=== PATIENT | female | born 1995 | race Two or more races ===

== ENCOUNTER 2020-04-10 17:57 | Emergency (ER) | payer OTHER, SELFPAY ==
[2020-04-10 19:27] VITALS: BP 112/61; PULSE 73; RESP 18; TEMP 37.1; O2SAT 100; BMI 30.9
--- NOTE | 2020-04-10 20:21 | US_ITS ---
EXAMINATION: ULTRASOUND PELVIC, COMPLETE CLINICAL INFORMATION: Pelvic pain COMPARISON: Pelvis 05/07/2018. CT scan abdomen pelvis 09/09/2019 TECHNIQUE: Transvaginal: Used to better visualize pelvic structures Transabdominal: Not adequate for visualization. Spectral Doppler and color Doppler exam was utilized. LMP: 03/25/2020 FINDINGS: UTERUS: There is an IUD in the central endometrial cavity. No fluid in the endometrial cavity. The uterus measures 7 x 3.6 x 4.6 cm. ADNEXA: Ovarian vascularity:Doppler demonstrates both arterial and venous vascular flow in the right and left ovary. No evidence of ovarian torsion. Right Ovary: 4.9 x 4.4 x 2.6 cm. Volume 29 mL. Corpus luteum cyst in the right ovary measuring 1.9 cm. Left Ovary: 2.6 x 1.6 x 1.7 cm. Volume 4 mL Cul-de-sac: No Fluid US/US transvaginal IMPRESSION: 1. No acute abnormality. 2. IUD in the endometrial cavity
--- NOTE | 2020-04-10 20:21 | US_ITS ---
EXAMINATION: ULTRASOUND PELVIC, COMPLETE CLINICAL INFORMATION: Pelvic pain COMPARISON: Pelvis 05/07/2018. CT scan abdomen pelvis 09/09/2019 TECHNIQUE: Transvaginal: Used to better visualize pelvic structures Transabdominal: Not adequate for visualization. Spectral Doppler and color Doppler exam was utilized. LMP: 03/25/2020 FINDINGS: UTERUS: There is an IUD in the central endometrial cavity. No fluid in the endometrial cavity. The uterus measures 7 x 3.6 x 4.6 cm. ADNEXA: Ovarian vascularity:Doppler demonstrates both arterial and venous vascular flow in the right and left ovary. No evidence of ovarian torsion. Right Ovary: 4.9 x 4.4 x 2.6 cm. Volume 29 mL. Corpus luteum cyst in the right ovary measuring 1.9 cm. Left Ovary: 2.6 x 1.6 x 1.7 cm. Volume 4 mL Cul-de-sac: No Fluid US/US pelvic ovarian doppler IMPRESSION: 1. No acute abnormality. 2. IUD in the endometrial cavity
--- NOTE | 2020-04-10 20:40 | ED.GENADULT ---
HPI - General Adult General Chief complaint: General Medical Stated complaint: lower abdominal pain Time Seen by Provider: 04/10/20 20:21 Source: patient Mode of arrival: ambulatory Limitations: no limitations History of Present Illness HPI narrative: 25-year-old female presented with lower pelvic pain, patient with chronic lower abdominal pain but the pain was worsening since 14:00 today about 6 hours ago. No vaginal bleed, patient has history of IUD which she is concerned about. Described pain as sharp, constant, moderate about 7/10, with no radiation, localized in the lower suprapubic area, nothing relieves the pain, nothing worsening the pain, no other associated symptoms. Related Data Allergies Allergy/AdvReac Type Severity Reaction Status Date / Time No Known Allergies Allergy Verified 04/10/20 20:21 [No Known Allergies*] Review of Systems Review of Systems: All other systems are reviewed and are negative Constitutional: Reports as per HPI and Reports no additional constitutional complaints Eyes: Reports as per HPI and Reports no additional eye complaints Reports system reviewed and no additional complaints, except as documented Cardiovascular: Reports as per HPI and Reports no additional cardiovascular complaints Respiratory: Reports as per HPI and Reports no additional respiratory complaints Gastrointestinal: Reports as per HPI and Reports no additional gastrointestinal complaints Genitourinary: Reports no additional female genitourinary complaints Musculoskeletal: Reports no additional musculoskeletal complaints Skin/Breast: Reports system reviewed and no additional complaints, except as docu Psychiatric: Reports no additional psychiatric complaints Endocrine: Reports no additional endocrine complaints Hematologic/Lymphatic: Reports no additional hematologic/lymphatic complaints Allergic/Immunologic: Reports no additional allergic/immunologic complaints Reports system reviewed and no additional complaints, except as documented and Reports Abnormal speech present [facility] Past Medical History Medical History Asthma IUD (intrauterine device) in place Surgical History History of sleeve gastrectomy Social History Social History Smoking Status: Never smoker Use of substances other than those prescribed or required for medical reasons: No Advance Directives: No Advance Directives Information Provided: No Physical Exam Vital Signs: Vital Signs: Last Vital Signs Temp 98.5 F 04/10/20 21:46 Pulse 65 04/10/20 21:46 Resp 18 04/10/20 21:46 BP 111/48 L 04/10/20 21:46 Pulse Ox 99 04/10/20 21:46 Body Mass Index 30.9 Vital signs have been reviewed as normal and appeared to be correct. Blood pressure normal. Heart rate normal. Respiration rate normal. Temperature normal. Oxygen saturation normal. Appearance: Alert. Oriented X3. No acute distress. Head: Normal external exam. Normocephalic. Atraumatic. No Weeks signs noted. No raccoon eyes noted Eyes: PERRLA. EOMI. Conjunctiva and sclera normal. Eyelids normal. ENT: EAC normal. TM's Normal. Pharynx normal. Uvula midline. Moist mucous membranes. No trismus noted. No drooling noted. No muffled voice noted. Neck: Normal inspection. Neck supple. FROM. No adenopathy. Thyroid Normal. No meningeal signs. No neck mass noted. CVS: Normal heart rate and rhythm. Heart sound normal. No murmurs noted. Pulses normal throughout. Respiratory: No respiratory distress. Painless inspiration. Breath sounds normal. No wheezes/rales/rhonchi noted. Chest nontender. No accessory muscle usage noted or decreased air movement noted. Abdomen: Soft and nontender. Bowel sounds normal in all 4 quadrants. No distention noted. No organomegaly noted. No visible injury noted. Back: No CVA tenderness. Full range of motion noted. Skin: Skin warm and dry. Normal skin color. Normal skin turgor. No rashes/lesions/lacerations noted. Extremities: No lower extremity edema. Extremities exhibit normal range of motion. Extremities nontender. Neuro: Oriented X 3. No motor deficit. No sensory deficit. Reflexes normal. Course Course Course Narrative: Lower abdominal pain since 02:00 o'clock, feels like contractions, history of IUD. Rule out , pelvic ultrasound rule out ovarian torsion, will consider x-ray if is negative to locate the IUD. Medical Decision Making MDM Narrative Medical decision making narrative: Assessment and plan. Patient 25-year-old healthy female presented with lower pelvic pain started today, patient in the emergency department had blood workup and ultrasound of the pelvis, ultrasound ruled out any acute pelvic pathology, IUD is in the endometrial cavity, abdominal and pelvic exam is not consistent with perforated viscus (no rebound tenderness, no guarding) ultrasound also ruled out ovarian torsion, patient in the room appears very comfortable on her cellphone. Patient was instructed to follow-up with her OBGYN if symptoms still persist. Lab Data Lab results reviewed: Yes I reviewed the patient's lab results. Result diagrams: 04/10/20 20:38 04/10/20 20:38 Labs: Lab Results 04/10/20 04/10/20 04/10/20 Range/Units 20:38 20:38 20:38 WBC 9.8 (4.8-10.8) X10*3/uL RBC 3.73 L (4.20-5.50) X10*6/uL Hgb 11.3 L (12.0-16.0) g/dl Hct 33.8 L (37-47) % MCV 90.6 (80-98) fL MCH 30.3 (27.0-33.0) pg MCHC 33.4 (31.0-35.0) g/dl RDW 12.1 (11.0-16.0) % Plt Count 277 (160-400) X10*3/uL MPV 10.4 (9.4-12.3) fL Immature Gran % (Auto) 0.2 (0.0-0.4) % Neut % (Auto) 62.3 (45-73) % Lymph % (Auto) 28.6 (20-40) % Green % (Auto) 5.8 (2-11) % Eos % (Auto) 2.8 (0-4) % Baso % (Auto) 0.3 (0-2) % Lymph # (Auto) 2.8 (1.2-4.9) X10*3/uL Green # (Auto) 0.6 (0.1-1.2) X10*3/uL Eos # (Auto) 0.3 (0.0-0.4) X10*3/uL Baso # (Auto) 0.0 (0.0-0.2) X10*3/uL Abs Immat Gran (auto) 0.02 (0.00-0.03) X10*3/uL Absolute Neuts (auto) 6.1 (2.0-8.3) X10*3/uL Absolute Nucleated RBC 0.000 (0.0-0.012) X10*3/uL Nucleated RBC % (auto) 0.0 (0.0-0.2) /100WBC Sodium 138 (135-145) mmol/L Potassium 4.1 (3.3-5.1) mmol/l Chloride 105 (96-108) mmol/L Carbon Dioxide 24 (22-29) mmol/L Anion Gap 13 (12-20) BUN 14 (9-16) mg/dL Creatinine 0.72 (0.5-1.4) mg/dL Estim Creat Clear Calc 114.5 Estimated GFR > 60 Random Glucose 78 (60-115) mg/dL Calcium 8.9 (8.4-10.2) mg/dL Total Bilirubin 0.5 (0.0-1.0) mg/dL Direct Bilirubin 0.2 (0.0-0.5) mg/dL AST 18 (5-31) U/L ALT 14 (0-31) U/L Alkaline Phosphatase 82 (39-117) U/L Total Protein 6.9 (6.5-8.0) g/dL Albumin 4.1 (3.5-5.0) g/dL Lipase 25 (8-78) U/L Urine Color Urine Appearance Urine pH (5.0-8.0) Ur Specific [place] (1.005-1.025) Urine Protein (NEG-TRACE) MG/DL Urine Glucose (UA) (NEG) MG/DL Urine Ketones (NEG) MG/DL Urine Blood (NEG) Urine Nitrite (NEG) Ur Leukocyte Esterase (NEG) Urine Test NEGATIVE (NEGATIVE) 04/10/20 Range/Units 20:38 WBC (4.8-10.8) X10*3/uL RBC (4.20-5.50) X10*6/uL Hgb (12.0-16.0) g/dl Hct (37-47) % MCV (80-98) fL MCH (27.0-33.0) pg MCHC (31.0-35.0) g/dl RDW (11.0-16.0) % Plt Count (160-400) X10*3/uL MPV (9.4-12.3) fL Immature Gran % (Auto) (0.0-0.4) % Neut % (Auto) (45-73) % Lymph % (Auto) (20-40) % Green % (Auto) (2-11) % Eos % (Auto) (0-4) % Baso % (Auto) (0-2) % Lymph # (Auto) (1.2-4.9) X10*3/uL Green # (Auto) (0.1-1.2) X10*3/uL Eos # (Auto) (0.0-0.4) X10*3/uL Baso # (Auto) (0.0-0.2) X10*3/uL Abs Immat Gran (auto) (0.00-0.03) X10*3/uL Absolute Neuts (auto) (2.0-8.3) X10*3/uL Absolute Nucleated RBC (0.0-0.012) X10*3/uL Nucleated RBC % (auto) (0.0-0.2) /100WBC Sodium (135-145) mmol/L Potassium (3.3-5.1) mmol/l Chloride (96-108) mmol/L Carbon Dioxide (22-29) mmol/L Anion Gap (12-20) BUN (9-16) mg/dL Creatinine (0.5-1.4) mg/dL Estim Creat Clear Calc Estimated GFR Random Glucose (60-115) mg/dL Calcium (8.4-10.2) mg/dL Total Bilirubin (0.0-1.0) mg/dL Direct Bilirubin (0.0-0.5) mg/dL AST (5-31) U/L ALT (0-31) U/L Alkaline Phosphatase (39-117) U/L Total Protein (6.5-8.0) g/dL Albumin (3.5-5.0) g/dL Lipase (8-78) U/L Urine Color YELLOW Urine Appearance CLEAR Urine pH 7.5 (5.0-8.0) Ur Specific [place] 1.020 (1.005-1.025) Urine Protein NEG (NEG-TRACE) MG/DL Urine Glucose (UA) NEG (NEG) MG/DL Urine Ketones NEG (NEG) MG/DL Urine Blood NEG (NEG) Urine Nitrite NEG (NEG) Ur Leukocyte Esterase NEG (NEG) Urine Test (NEGATIVE) Imaging Data Pelvic ultrasound: Radiologist's impression: 1. No acute abnormality. 2. IUD in the endometrial cavity Discharge Plan Discharge Clinical Impression: Pelvic pain Patient Disposition: Home, Self-Care Instructions: Pelvic Pain in Women (ED) Referrals: Lucy Larkin MD [Primary Care Provider] - 2 days
[2020-04-10 20:53] LABS: MANUAL DIFF FLAG NO
--- NOTE | 2020-04-10 20:57 | US_ITS ---
EXAMINATION: ULTRASOUND PELVIC, COMPLETE CLINICAL INFORMATION: Pelvic pain COMPARISON: Pelvis 05/07/2018. CT scan abdomen pelvis 09/09/2019 TECHNIQUE: Transvaginal: Used to better visualize pelvic structures Transabdominal: Not adequate for visualization. Spectral Doppler and color Doppler exam was utilized. LMP: 03/25/2020 FINDINGS: UTERUS: There is an IUD in the central endometrial cavity. No fluid in the endometrial cavity. The uterus measures 7 x 3.6 x 4.6 cm. ADNEXA: Ovarian vascularity:Doppler demonstrates both arterial and venous vascular flow in the right and left ovary. No evidence of ovarian torsion. Right Ovary: 4.9 x 4.4 x 2.6 cm. Volume 29 mL. Corpus luteum cyst in the right ovary measuring 1.9 cm. Left Ovary: 2.6 x 1.6 x 1.7 cm. Volume 4 mL Cul-de-sac: No Fluid US/US pelvic complete IMPRESSION: 1. No acute abnormality. 2. IUD in the endometrial cavity
[2020-04-10 20:59] LABS: Basophils Percent Auto 0.3 % (0-2); Eosinophils Absolute Auto 0.3 X10*3/uL (0.0-0.4); Eosinophils Percent Auto 2.8 % (0-4); Hematocrit 33.8 % (37-47); Hemoglobin 11.3 g/dl (12.0-16.0); Imm Gran Abs Auto 0.02 X10*3/uL (0.00-0.03); Imm Gran Pct Auto 0.2 % (0.0-0.4); Lymphocytes Absolute Auto 2.8 X10*3/uL (1.2-4.9); Lymphocytes Percent Auto 28.6 % (20-40); Mean Corpuscular HGB Conc 33.4 g/dl (31.0-35.0); Mean Corpuscular Hemoglobin 30.3 pg (27.0-33.0); Mean Corpuscular Volume 90.6 fL (80-98); Mean Platelet Volume 10.4 fL (9.4-12.3); Monocytes Absolute Auto 0.6 X10*3/uL (0.1-1.2); Monocytes Percent Auto 5.8 % (2-11); Neutrophils Absolute Auto 6.1 X10*3/uL (2.0-8.3); Neutrophils Percent Auto 62.3 % (45-73); Platelet Count 277 X10*3/uL (160-400); Red Blood Count 3.73 X10*6/uL (4.20-5.50); Red Cell Distribution Width 12.1 % (11.0-16.0); White Blood Count 9.8 X10*3/uL (4.8-10.8)
[2020-04-10 21:06] LABS: Glucose Urine UA NEG (NEG); Leukocyte Esterase Urine NEG (NEG); Nitrite Urine NEG (NEG); PH 7.5 (5.0-8.0); Urine Blood NEG (NEG); Urine Ketones NEG (NEG); Urine Protein NEG (NEG-TRACE)
[2020-04-10 21:08] LABS: Appearance Urine CLEAR; Color Urine YELLOW
[2020-04-10 21:11] LABS: UPreg QC Valid YES; Urine Pregnancy NEGATIVE (NEGATIVE)
[2020-04-10 21:23] LABS: Alanine Aminotransferase 14 U/L (0-31); Albumin Level 4.1 g/dL (3.5-5.0); Alkaline Phosphatase 82 U/L (39-117); Anion Gap 13 (12-20); Aspartate Amino Transferase 18 U/L (5-31); Bilirubin Direct 0.2 mg/dL (0.0-0.5); Bilirubin Total 0.5 mg/dL (0.0-1.0); Blood Urea Nitrogen 14 mg/dL (9-16); Calcium 8.9 mg/dL (8.4-10.2); Carbon Dioxide 24 mmol/L (22-29); Chloride 105 mmol/L (96-108); Creatinine Clr Calc Pharmacy 114.5; Estimated Glomerular Filt Rate > 60; Glucose Random 78 mg/dL (60-115); Lipase 25 U/L (8-78); Potassium 4.1 mmol/l (3.3-5.1); Sodium 138 mmol/L (135-145); Total Protein 6.9 g/dL (6.5-8.0)
[2020-04-10 21:46] VITALS: BP 111/48; PULSE 65; RESP 18; TEMP 36.9; O2SAT 99
== END 2020-04-10 22:39 | disposition home or self-care (01) ==
PROVIDERS: Emergency Provider Emergency Medicine; PCP Family Medicine
DX: R10.2 Pelvic and perineal pain (principal); Z98.84 Bariatric surgery status
CPT/HCPCS: 36415; 76830; 76856; 80048; 80076; 81003; 81025; 83690; 85025; 93975; 99284

== ENCOUNTER 2020-07-30 08:23 | Outpatient (REF) | payer OTHER, SELFPAY ==
[2020-07-31 09:24] LABS: BV Int Neg Control Negative (Negative); BV Int Pos Control Positive (Positive)
[2020-07-31 11:41] LABS: C. trachomatis RNA TMA NOT DETECTED (NOT DETECTED); N. gonorrhoeae RNA TMA NOT DETECTED (NOT DETECTED)
== END 2020-07-30 08:24 | disposition home or self-care (01) ==
LOC: HO.LAB 08:23
PROVIDERS: PCP Family Medicine; Visit Provider Obstetrics & Gynecology
DX: Z01.419 Encounter for gynecological examination (general) (routine) without abnormal findings (principal); B96.89 Other specified bacterial agents as the cause of diseases classified elsewhere; N76.0 Acute vaginitis; N94.9 Unspecified condition associated with female genital organs and menstrual cycle
CPT/HCPCS: 36415; 87480; 87491; 87510; 87591; 87660; 88142

== ENCOUNTER → 2020-08-10 11:36 | Outpatient (BNVA) | payer OTHER, SELFPAY | PROVIDERS: Visit Provider Obstetrics & Gynecology | CPT/HCPCS: Q3014 ==

== ENCOUNTER 2020-09-04 12:45 | Outpatient (REF) | payer OTHER, SELFPAY ==
--- NOTE | ~2020-09-04 | US_ITS ---
EXAMINATION:US transvaginal, US pelvic complete CLINICAL INFORMATION: Reason for Exam N94.9 - Unspecified condition associated with female genital organs and menstrual cycle COMPARISON: No priors available. LMP: Today FINDINGS: UTERUS: The uterus is anteverted. Size: 8.1 x 3.7 x 5.3 cm. Uterine mass: There is no uterine mass. Cervix: Grossly unremarkable. Endometrium: No ultrasound evidence of endometrial lesion. endometrial thickness measures 0.[address] properly positioned. ADNEXA: Normal Right ovary: Normal in size. Left ovary: Normal in size. Cystic structure likely dominant follicle 2.1 x 1.4 x 2 cm. Doppler exam: Normal Doppler flow identified in both ovaries. FREE FLUID: Trace amount of free fluid. OTHER FINDINGS: None US/US transvaginal IMPRESSION: Normal pelvic ultrasound. IUD in place properly positioned.
--- NOTE | ~2020-09-04 | US_ITS ---
EXAMINATION:US transvaginal, US pelvic complete CLINICAL INFORMATION: Reason for Exam N94.9 - Unspecified condition associated with female genital organs and menstrual cycle COMPARISON: No priors available. LMP: Today FINDINGS: UTERUS: The uterus is anteverted. Size: 8.1 x 3.7 x 5.3 cm. Uterine mass: There is no uterine mass. Cervix: Grossly unremarkable. Endometrium: No ultrasound evidence of endometrial lesion. endometrial thickness measures 0.[address] properly positioned. ADNEXA: Normal Right ovary: Normal in size. Left ovary: Normal in size. Cystic structure likely dominant follicle 2.1 x 1.4 x 2 cm. Doppler exam: Normal Doppler flow identified in both ovaries. FREE FLUID: Trace amount of free fluid. OTHER FINDINGS: None US/US pelvic complete IMPRESSION: Normal pelvic ultrasound. IUD in place properly positioned.
== END 2020-09-04 12:46 | disposition home or self-care (01) ==
LOC: HO.US 12:45
PROVIDERS: Visit Provider Obstetrics & Gynecology
DX: N94.9 Unspecified condition associated with female genital organs and menstrual cycle (principal)
CPT/HCPCS: 76830; 76856

== ENCOUNTER → 2020-09-06 13:17 | Outpatient (BNVA) | payer OTHER, SELFPAY | PROVIDERS: Visit Provider Obstetrics & Gynecology | DX: N94.9 Unspecified condition associated with female genital organs and menstrual cycle (principal) | CPT/HCPCS: Q3014 ==

== ENCOUNTER 2020-09-18 15:48 | Outpatient (REF) | payer OTHER, SELFPAY ==
--- NOTE | ~2020-09-18 | US_ITS ---
EXAMINATION: US THYROID CLINICAL INFORMATION: Thyroid nodule. COMPARISON: Ultrasound soft tissue head/neck thyroid dated 12/20/2018. TECHNIQUE: Linear transducer grayscale and color Doppler examination with attention to the region of the thyroid. FINDINGS: SIZE: Measurements of the thyroid lobes and nodules are given in sagittal, anteroposterior and transverse dimensions respectively. Right Thyroid Lobe: 5.3 x 1.6 x 1.6 cm, volume 7.0 mL. Previously 4.9 x 1.4 x 1.5 cm, volume 5.5 mL. Parenchyma: The gland echotexture is homogeneous. Thyroid vascularity is normal. Left Thyroid Lobe: 4.4 x 1.2 x 1.6 cm, volume 4.3 mL. Previously 4.2 x 1.1 x 1.4 cm, volume 3.3 mL. Parenchyma: The gland echotexture is homogeneous. Thyroid vascularity is normal. Isthmus: 0.3 cm in maximum AP dimension. Previously 0.3 cm. Estimated total number of nodules greater than or equal to 1 cm: 0. Etiology Teacher nodules are described as follows: 1. Location: Left mid. Size: 0.6 x 0.3 x 0.5 cm, volume 0.04 mL. Previously: 0.5 x 0.3 x 0.4 cm, volume 0.03 mL. Nodule characteristics: Composition: Solid (2). Echogenicity: Hyperechoic (1). Shape: Not taller than wide (0). Margins: Ill-defined (0). Echogenic Foci: None (0). ACR TI-RADS total points: 3 ACR TI-RADS category: 3 Significant change in size (>/= 20% in 2 dimensions and minimal increase of 2 mm or 50% or greater increase in volume): No Change in features: No Change in ACR TI-RADS risk category: n/a NODES: No lymphadenopathy is seen in the tissue surrounding the thyroid gland. US/US thyroid IMPRESSION: Homogeneous thyroid parenchyma with normal vascularity. No thyromegaly. Redemonstration of a mid left thyroid nodule measuring 0.6 cm and not significantly changed in size when compared to the prior examination. This demonstrates ultrasound characteristics consistent with TI-RADS Category 3. ACR TI-RADS RECOMMENDATION REFERENCE: Ultrasound-guided fine-needle aspiration, followup ultrasound, no further follow up. * TR3 (3 points): FNA if more than or equal to 2.5 cm in maximum dimension, followup ultrasound in 1, 3 and 5 years if 1.5 to 2.4 cm in maximum dimension. * TR3, TR4 or TR5 nodules that are below the size threshold for follow up receive no follow up.
== END 2020-09-18 15:49 | disposition home or self-care (01) ==
LOC: HO.US 15:48
PROVIDERS: PCP Family Medicine; Visit Provider Internal Medicine Endocrinology, Diabetes & Metabolism
DX: E04.1 Nontoxic single thyroid nodule (principal)
CPT/HCPCS: 76536

== ENCOUNTER 2021-04-04 12:30 | Emergency (ER) | payer OTHER, SELFPAY ==
[2021-04-04 12:58] VITALS: BP 141/85; PULSE 104; RESP 16; TEMP 36.8; O2SAT 100; BMI 30.5
--- NOTE | 2021-04-04 14:10 | ED_ITS ---
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 Related Data Home Medications Medication Instructions Recorded Confirmed calcium citrate 315 mg 2 tab PO BID 07/30/20 09/06/20 calcium-vitamin D3 6.25 mcg (250 unit) tablet copper 380 square mm intrauterine INTRAUTERINE 07/30/20 09/06/20 device (ParaGard T 380A) Previous Rx's Medication Instructions Recorded metronidazole 500 mg tablet 500 mg PO BID 7 Days #14 tab 07/30/20 fluconazole 150 mg tablet 150 mg PO DAILY #1 tab 08/10/20 Allergies Allergy/AdvReac Type Severity Reaction Status Date / Time No Known Allergies Allergy Verified 09/06/20 13:18 [No Known Allergies*] Review of Systems Review of Systems: All other systems are reviewed and are negative Constitutional: Reports as per HPI and Reports no additional constitutional complaints Eyes: Reports as per HPI and Reports no additional eye complaints Reports system reviewed and no additional complaints, except as documented Cardiovascular: Reports as per HPI and Reports no additional cardiovascular co mplaints Respiratory: Reports as per HPI and Reports no additional respiratory complaints Gastrointestinal: Reports as per HPI and Reports no additional gastrointestinal complaints Genitourinary: Reports no additional female genitourinary complaints Musculoskeletal: Reports no additional musculoskeletal complaints Skin/Breast: Reports system reviewed and no additional complaints, except as docu Psychiatric: Reports no additional psychiatric complaints Endocrine: Reports no additional endocrine complaints Hematologic/Lymphatic: Reports no additional hematologic/lymphatic complaints Allergic/Immunologic: Reports no additional allergic/immunologic complaints Reports system reviewed and no additional complaints, except as documented and Reports Abnormal speech present [facility] Past Medical History Medical History Asthma IUD (intrauterine device) in place Surgical History History of sleeve gastrectomy Social History Social History Alcohol intake: never Advance Directives: No Advance Directives Information Provided: No Patient : No Gender identity: Female Physical Exam Vital Signs: Vital Signs: Last Vital Signs Temp 98.2 F 04/04/21 12:58 Pulse 104 H 04/04/21 12:58 Resp 16 04/04/21 12:58 BP 141/85 H 04/04/21 12:58 Pulse Ox 100 04/04/21 12:58 Body Mass Index 30.5 Vital signs have been reviewed as appeared to be correct. Blood pressure normal. Heart rate normal. Respiration rate normal. Temperature normal. Oxygen saturation normal. Appearance: Alert. Oriented X3. No acute distress. Head: Normal external exam. Normocephalic. Atraumatic. No Weeks signs noted. No raccoon eyes noted Eyes: PERRLA. EOMI. Conjunctiva and sclera normal. Eyelids normal. ENT: TM's Normal. Pharynx normal. Uvula midline. Moist mucous membranes. No trismus noted. No drooling noted. No muffled voice noted. Neck: Normal inspection. Neck supple. FROM. No adenopathy. Thyroid Normal. No meningeal signs. No neck mass noted. CVS: Normal heart rate and rhythm. Heart sound normal. No murmurs noted. Pulses normal throughout. Respiratory: No respiratory distress. Painless inspiration. Breath sounds normal. No wheezes/rales/rhonchi noted. Chest nontender. No accessory muscle usage noted or decreased air movement noted. Abdomen: Soft and nontender. Bowel sounds normal in all 4 quadrants. No distention noted. No organomegaly noted. No visible injury noted. Incision is dry and clean and intact, G drainage is intact with yellow discharge in it. Back: No CVA tenderness. Full range of motion noted. Skin: Skin warm and dry. Normal skin color. Normal skin turgor. No rashes/lesions/lacerations noted. Extremities: No lower extremity edema. Extremities exhibit normal range of motion. Extremities nontender. Neuro: Oriented X 3. Cranial nerve exam: II-XII are grossly intact No motor deficit. No sensory deficit. Reflexes normal. Course Course Course Narrative: Assessment and plan. 26-year-old female status post surgery at [place], [place] here to remove J drainage, would send the patient to a surgeon for removal of the drainage. Discharge Plan Discharge Clinical Impression: Drainage from wound Patient Disposition: Home, Self-Care Instructions: Care For Your Stitches (ED) Prescriptions: No Action calcium citrate-vitamin D3 315 mg-6.25 mcg (250 unit) tablet 2 tab PO BID RF: 0 ParaGard T 380A 380 square mm intrauterine device intrauterine RF: 0 metronidazole 500 mg tablet 500 mg PO BID 7 Days Qty: 14 RF: 0 fluconazole 150 mg tablet 150 mg PO DAILY Qty: 1 RF: 1 Referrals: Teo Dunbar MD [Physician] - 2 days Lucy Larkin MD [Primary Care Provider] - 2 days
== END 2021-04-04 14:45 | disposition home or self-care (01) ==
PROVIDERS: Emergency Provider Emergency Medicine; PCP Family Medicine
DX: T81.89XA Other complications of procedures, not elsewhere classified, initial encounter (principal)
CPT/HCPCS: 99283; 99284

== ENCOUNTER 2021-04-12 14:54 | Outpatient (REF) | payer OTHER, SELFPAY ==
[2021-04-12 16:26] LABS: MANUAL DIFF FLAG NO
[2021-04-12 17:46] LABS: Basophils Percent Auto 0.4 % (0-2); Eosinophils Absolute Auto 0.2 X10*3/uL (0.0-0.4); Eosinophils Percent Auto 2.2 % (0-4); Hematocrit 33.5 % (37.0-47.0); Hemoglobin 11.2 g/dl (12.0-16.0); Imm Gran Abs Auto 0.03 X10*3/uL (0.00-0.03); Imm Gran Pct Auto 0.4 % (0.0-0.4); Lymphocytes Absolute Auto 1.5 X10*3/uL (1.2-4.9); Mean Corpuscular HGB Conc 33.4 g/dl (31.0-35.0); Mean Corpuscular Hemoglobin 30.4 pg (27.0-33.0); Mean Platelet Volume 10.8 fL (9.4-12.3); Monocytes Absolute Auto 0.4 X10*3/uL (0.1-1.2); Monocytes Percent Auto 5.6 % (2-11); Neutrophils Absolute Auto 4.9 x10*3/uL (2.0-8.3); Neutrophils Percent Auto 70.4 % (45-73); Platelet Count 321 X10*3/uL (160-400); Red Blood Count 3.68 X10*6/uL (4.20-5.50); Red Cell Distribution Width 11.8 % (11.0-16.0); White Blood Count 6.9 X10*3/uL (4.8-10.8)
[2021-04-15 12:01] LABS: Calcium (PTHI) 9.8 mg/dL (8.6-10.2); PTHI 33 pg/mL (14-64)
[2021-04-16 02:22] LABS: Zinc 61 mcg/dL (60-130)
== END 2021-04-12 14:55 | disposition home or self-care (01) ==
LOC: HO.LAB 14:54
PROVIDERS: PCP Family Medicine; Referring Provider Family Medicine; Visit Provider Physician Assistant Surgical
DX: E66.9 Obesity, unspecified (principal); Z68.30 Body mass index [BMI] 30.0-30.9, adult; Z71.3 Dietary counseling and surveillance
CPT/HCPCS: 36415; 83970; 84630; 85025; 99212

== ENCOUNTER → 2021-05-13 11:10 | Outpatient (BNVA) | payer OTHER, SELFPAY | PROVIDERS: PCP Family Medicine; Referring Provider Family Medicine; Visit Provider Dietitian, Registered | DX: E66.3 Overweight (principal); Z68.28 Body mass index [BMI] 28.0-28.9, adult | CPT/HCPCS: 97803 ==

== ENCOUNTER 2021-06-13 09:52 | Outpatient (REF) | payer OTHER, SELFPAY ==
[2021-06-13 11:38] LABS: Estimated Average Glucose 91 mg/dL; Hemoglobin A1c % 4.8 %
[2021-06-13 11:47] LABS: Anion Gap 12 (12-20); Blood Urea Nitrogen 9 mg/dL (9-16); C Reactive Protein 0.24 mg/dL (< or = 0.50); Calcium 10.1 mg/dL (8.4-10.2); Carbon Dioxide 27 mmol/L (22-29); Chloride 106 mmol/L (96-108); Cholesterol 167 mg/dL; Estimated Glomerular Filt Rate > 60; Glucose Random 79 mg/dL (60-115); HDL Cholesterol 52 mg/dL; Iron 62 mcg/dL (30-160); LDL Cholesterol Calculated 99 mg/dl; Percent Iron Saturation 21 % (15-50); Sodium 141 mmol/L (135-145); Total Iron Binding Capacity 297 mcg/dL (228-428); Triglycerides 82 mg/dL; Unsaturated Iron Binding 235 ug/dL
[2021-06-13 12:09] LABS: Ferritin 28 ng/mL (10-122); TSH reflex Free T4 1.27 uIU/mL (0.32-4.0); Vitamin D 25-OH Total 29.3 ng/mL (>30)
[2021-06-13 12:18] LABS: Folate 18.7 ng/mL (> or = 4.0); Vitamin B12 728 pg/mL (200-900)
[2021-06-19 14:27] LABS: Vitamin A 36 mcg/dL (38-98)
[2021-06-19 16:31] LABS: Vitamin B1 10 nmol/L (8-30)
== END 2021-06-13 09:53 | disposition home or self-care (01) ==
LOC: HO.LAB 09:52
PROVIDERS: PCP Family Medicine; Referring Provider Family Medicine; Visit Provider Physician Assistant Surgical
DX: E66.9 Obesity, unspecified (principal)
CPT/HCPCS: 36415; 80048; 80061; 82306; 82607; 82728; 82746; 83036; 83540; 84425; 84443; 84590; 86140; Q3014

== ENCOUNTER 2021-06-20 11:39 | Outpatient (REF) | payer OTHER, SELFPAY ==
[2021-06-20 15:57] LABS: CT PCR NOT DETECTED (Not Detect.); NG PCR NOT DETECTED (Not Detect.)
[2021-06-21 08:57] LABS: BV Int Neg Control Negative (Negative); BV Int Pos Control Positive (Positive)
== END 2021-06-20 11:40 | disposition home or self-care (01) ==
LOC: HO.LAB 11:39
PROVIDERS: PCP Family Medicine; Visit Provider Obstetrics & Gynecology
DX: B37.3 Candidiasis of vulva and vagina (principal)
CPT/HCPCS: 87480; 87491; 87510; 87591; 87660; 99212

== ENCOUNTER 2021-06-21 11:48 | Outpatient (REF) | payer OTHER, SELFPAY ==
[2021-06-21 13:21] LABS: Glucose Fasting 84 mg/dL (60-99)
[2021-06-21 13:42] LABS: HIV AB/AG Nonreactive (Nonreactive); HIV Num 1 0.06 S/CO (0.00-0.99)
[2021-06-22 03:01] LABS: CT PCR NOT DETECTED (Not Detect.); NG PCR NOT DETECTED (Not Detect.)
== END 2021-06-21 11:49 | disposition home or self-care (01) ==
LOC: HO.LAB 11:48
PROVIDERS: PCP Family Medicine; Visit Provider Obstetrics & Gynecology
DX: Z11.4 Encounter for screening for human immunodeficiency virus [HIV] (principal); B37.3 Candidiasis of vulva and vagina; B96.89 Other specified bacterial agents as the cause of diseases classified elsewhere; N76.0 Acute vaginitis
CPT/HCPCS: 82947; 87389; 87491; 87591

== ENCOUNTER 2021-08-06 12:55 | Outpatient (REF) | payer OTHER, SELFPAY ==
[2021-08-07 09:34] LABS: CT PCR NOT DETECTED (Not Detect.); NG PCR NOT DETECTED (Not Detect.)
== END 2021-08-06 12:56 | disposition home or self-care (01) ==
LOC: HO.LAB 12:55
PROVIDERS: PCP Family Medicine; Visit Provider Advanced Practice Midwife
DX: Z01.419 Encounter for gynecological examination (general) (routine) without abnormal findings (principal); Z11.3 Encounter for screening for infections with a predominantly sexual mode of transmission; Z11.8 Encounter for screening for other infectious and parasitic diseases; Z97.5 Presence of (intrauterine) contraceptive device; Z90.3 Acquired absence of stomach [part of]
CPT/HCPCS: 87491; 87591

== ENCOUNTER → 2021-11-11 08:53 | Outpatient (BNVA) | payer OTHER, SELFPAY | PROVIDERS: PCP Family Medicine; Visit Provider Dietitian, Registered | DX: E66.3 Overweight (principal); Z68.28 Body mass index [BMI] 28.0-28.9, adult | CPT/HCPCS: 97803 ==

== ENCOUNTER 2021-11-27 09:49 | Emergency (ER) | payer OTHER, SELFPAY ==
[2021-11-27 10:26] VITALS: BP 106/55; PULSE 66; RESP 20; TEMP 36.4; O2SAT 96; BMI 27.1
--- NOTE | 2021-11-27 11:08 | ED.WOUNDLAC ---
HPI - Wound/Laceration General Chief Complaint: Wound/Laceration Stated Complaint: R SIDE INFECTION Time Seen by Provider: 11/27/21 10:45 Source: patient Mode of arrival: ambulatory History of Present Illness HPI narrative: 26-year-old female with past medical history of asthma, migraines with aura, back surgery in [place] to remove excess skin 2 months ago, presenting to the ED complaining of painful lump to right side at end of suture placement x3 days. Reports skin feels itchy and tight, also with persistent sutures poking out of skin. Denies fever, chills, nausea, vomiting, abdominal pain, drainage from area Onset (ago): day(s) Location: abdomen Related Data Home Medications Medication Instructions Recorded Confirmed calcium citrate 315 mg 2 tab PO BID 07/30/20 06/13/21 calcium-vitamin D3 6.25 mcg (250 unit) tablet copper 380 square mm intrauterine intrauterine 07/30/20 06/13/21 device (ParaGard T 380A) ascorbic acid (vitamin C) 500 mg 500 mg PO DAILY 04/12/21 06/13/21 capsule,extended release (Vitamin C) iron 18 mg tablet 18 mg PO DAILY 04/12/21 06/13/21 folic acid 800 mcg tablet 0.8 mg PO DAILY 06/13/21 06/13/21 spironolactone 100 mg tablet 100 mg PO DAILY acne 06/13/21 06/13/21 tretinoin 0.05 % topical cream appl topical BEDTIME 06/13/21 06/13/21 zinc sulfate 50 mg zinc (220 mg) 50 mg PO TID 06/13/21 06/13/21 capsule Previous Rx's Medication Instructions Recorded fluconazole 150 mg tablet 150 mg PO DAILY #1 tab 08/10/20 vitamin A palmitate 10,000 unit 10,000 unit PO DAILY #30 caps 06/19/21 capsule fluconazole 150 mg tablet 150 mg PO ONCE 1 day #1 tab 06/20/21 terconazole 0.8 % vaginal cream 1 appful vaginal BEDTIME 3 days 06/20/21 #20 grams cephalexin 500 mg capsule 500 mg PO QID 7 days #28 caps 11/27/21 doxycycline hyclate 100 mg tablet 100 mg PO BID 7 days #14 tabs 11/27/21 Allergies Allergy/AdvReac Type Severity Reaction Status Date / Time No Known Allergies Allergy Verified 08/06/21 13:14 [No Known Allergies*] Review of Systems Review of Systems: Constitutional: No Fever, No Chills, No Fatigue, No Malaise ENT/Mouth: No Ear Pain, No Nasal Congestion, No sore throat, No Rhinorrhea, No Swallowing Difficulty Eyes: No Eye Pain, No Swelling, No Redness Cardiovascular: No Chest Pain, No SOB, No Palpitations Respiratory: No Cough, No Sputum, No Dyspnea Gastrointestinal: No Nausea, No Vomiting, No Diarrhea, No Constipation, No Abdominal pain Genitourinary: No Dysuria, No Urinary Frequency, No Hematuria, No Flank Pain Musculoskeletal: No joint pain, No Myalgias, No Joint Swelling Skin: + Skin Lesions, No rash Neuro: No Weakness, No Dizziness, No Headache Yes all other systems are reviewed and are negative [facility] Past Medical History Attestation statement: The following information was validated with the patient. Medical History Asthma IUD (intrauterine device) in place Migraine with aura Surgical History History of abdominoplasty History of sleeve gastrectomy Family History Family History Mother History of asthma History of anxiety Father Diabetes Heart problem Daughter Autism Son Autism Daughter No problems noted. 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 Gender identity: Female Physical Exam Vital Signs: Vital Signs: Last Vital Signs Temp 97.6 F 11/27/21 10:26 Pulse 66 11/27/21 10:26 Resp 20 11/27/21 10:26 BP 106/55 L 11/27/21 10:26 Pulse Ox 96 11/27/21 10:26 O2 Del Method 11/27/21 10:26 BMI result Body Mass Index 27.1 Const: General: cooperative, healthy appearing and no acute distress Orientation/consciousness: patient oriented x3 Limitations: no limitations HEENT: Head: Yes normal to inspection and Yes atraumatic Ears: hearing grossly normal bilaterally General nose exam: Normal external nose present Face and sinus: Yes normal facial exam Eyes: General: appearance normal, both eyes and all related structures EOM: EOMs intact bilaterally Neck: Neck: Yes normal visual inspection and Yes no meningeal signs Resp: Effort & Inspection: normal respiratory effort and no respiratory distress Cardio: Rate: regular rate Heart sounds: S1 normal heart sound present and S2 normal heart sound present GI: Inspection: Yes normal to inspection Palpation (GI): Soft to palpation, nontender, no guarding and not rigid : Other: Large healing surgical scar noted across back. + abscess with slight overlying erythema and ttp noted to right flank at end of suture line with suture poking out, no visible knots just string. No fluctuance Additional suture noted midline back and to left flank, no knots. General: Yes no CVA tenderness Back/Spine/Pelvis: Back: no CVA tenderness Skin: Rashes: no rashes Neuro: General: patient oriented x3, tone normal and no meningeal signs Gait exam (Neuro): Normal gait present Extrem: General: Yes normal to inspection MDM - Wound/Laceration MDM Narrative Medical decision making narrative: 26-year-old female with past medical history of asthma, migraines with aura, back surgery in [place] to remove excess skin 2 months ago, presenting to the ED complaining of painful lump to right side at end of suture placement x3 days. On exam vital signs stable, NAD, nontoxic appearing, abdomen soft/nontender, physical exam as above. No I & D indicated at this time Excess exposed suture strings cut Patient given 1st dose of doxycycline and Keflex in the ED, discussed worrisome signs and symptoms and strict return precautions Differential Diagnosis Differential diagnosis: Likely abscess Medical Records Attestation: I reviewed the patient's medical records. Lab Data Attestation: I reviewed the patient's lab results. Discharge Plan Discharge Clinical Impression: Abscess, Surgical complication Patient Disposition: Home, Self-Care Instructions: Wound Infection (ED), Abscess (ED) Additional Instructions: Start taking doxycycline and Keflex which are antibiotics. Avoid the sun while on doxycycline as makes you very sensitive/high risk of sunburn. Do not swim in water for the next 3 days. Keep a close eye in the area, if it is growing, turns red, has drainage or you have fever please return to the emergency department Prescriptions: New cephalexin 500 mg capsule 500 mg PO QID 7 Days Qty: 28 0RF doxycycline hyclate 100 mg tablet 100 mg PO BID 7 Days Qty: 14 0RF No Action vitamin A palmitate 10,000 unit capsule 10,000 unit PO DAILY Qty: 30 2RF calcium citrate-vitamin D3 315 mg-6.25 mcg (250 unit) tablet 2 tab PO BID ParaGard T 380A 380 square mm intrauterine device intrauterine fluconazole 150 mg tablet 150 mg PO DAILY Qty: 1 1RF iron 18 mg tablet 18 mg PO DAILY ascorbic acid (vitamin C) [Vitamin C] 500 mg capsule, extended release 500 mg PO DAILY zinc sulfate 50 mg zinc (220 mg) capsule 50 mg PO TID tretinoin 0.05 % cream topical BEDTIME spironolactone 100 mg tablet 100 mg PO DAILY folic acid 800 mcg tablet 0.8 mg PO DAILY fluconazole 150 mg tablet 150 mg PO ONCE 1 Days Qty: 1 1RF Rx Instructions: 150 mg tablet day 1 and Repeat another dose on day 4 terconazole 0.8 % cream 1 appful vaginal BEDTIME 3 Days Qty: 20 0RF Referrals: Lucy Larkin MD [Primary Care Provider] - 3 days Interventions: ED Discharge Assessment Last Done: 11/27/21 11:49 Discharge Date/Time: 11/27/21 11:50
[2021-11-27] MEDS: cephALEXin 500 MG CAPSULE PO (11:40)
== END 2021-11-27 11:50 | disposition home or self-care (01) ==
PROVIDERS: Emergency Provider Emergency Medicine; PCP Family Medicine
DX: L02.212 Cutaneous abscess of back [any part, except buttock and flank] (principal); T81.89XA Other complications of procedures, not elsewhere classified, initial encounter; Y82.8 Other medical devices associated with adverse incidents; Y92.9 Unspecified place or not applicable
CPT/HCPCS: 99283

== ENCOUNTER 2022-02-04 12:30 | Emergency (ER) | payer OTHER, SELFPAY ==
[2022-02-04 13:12] VITALS: BP 137/75; PULSE 69; RESP 18; TEMP 36.4; O2SAT 100; BMI 27.4
--- NOTE | 2022-02-04 16:47 | ED_ITS ---
HPI - General Adult General Chief complaint: General Medical Stated complaint: Cysts Time Seen by Provider: 02/04/22 16:39 Source: patient Mode of arrival: ambulatory Limitations: no limitations History of Present Illness HPI narrative: 26-year-old female presenting today with complaints of multiple labial cysts. Patient states that 3 days ago she developed hard painful lumps on her labia, which have been growing in size and becoming more painful since. Patient is unable to sit comfortably or walk without pain. Denies any previous similar episodes in her groin however does states she had a similar experience in her axillary region. Patient has been taking warm baths and taking Tylenol for pain however has not found any relief. Denies any fever, nausea,vomiting, diarrhea, change in vaginal discharge. Patient is sexually active with 1 partner and does not use barrier protection, is not concerned for STIs at this time. Patient reports she has a intrauterine IUD, and denies chance of pregna ncy.. Patient states that she does follow yearly with a historiography professor. MD complaint: labial cysts Onset (ago): day(s) (3) Location: genitals Severity scale (1-10): 10 Pain Consistency: constant Exacerbating factors: movement and other ( contact with clothes, fraction) Associated symptoms: denies other symptoms Treatments prior to arrival: heat therapy Related Data Home Medications Medication Instructions Recorded Confirmed calcium citrate 315 mg 2 tab PO BID 07/30/20 06/13/21 calcium-vitamin D3 6.25 mcg (250 unit) tablet copper 380 square mm intrauterine intrauterine 07/30/20 06/13/21 device (ParaGard T 380A) ascorbic acid (vitamin C) 500 mg 500 mg PO DAILY 04/12/21 06/13/21 capsule,extended release (Vitamin C) iron 18 mg tablet 18 mg PO DAILY 04/12/21 06/13/21 folic acid 800 mcg tablet 0.8 mg PO DAILY 06/13/21 06/13/21 spironolactone 100 mg tablet 100 mg PO DAILY acne 06/13/21 06/13/21 tretinoin 0.05 % topical cream appl topical BEDTIME 06/13/21 06/13/21 zinc sulfate 50 mg zinc (220 mg) 50 mg PO TID 06/13/21 06/13/21 capsule Previous Rx's Medication Instructions Recorded fluconazole 150 mg tablet 150 mg PO DAILY #1 tab 08/10/20 vitamin A palmitate 10,000 unit 10,000 unit PO DAILY #30 caps 06/19/21 capsule fluconazole 150 mg tablet 150 mg PO ONCE 1 day #1 tab 06/20/21 terconazole 0.8 % vaginal cream 1 appful vaginal BEDTIME 3 days 06/20/21 #20 grams cephalexin 500 mg capsule 500 mg PO QID 7 days #28 caps 11/27/21 doxycycline hyclate 100 mg tablet 100 mg PO BID 7 days #14 tabs 11/27/21 cephalexin 500 mg capsule 500 mg PO Q6H 7 days #28 caps 02/04/22 ibuprofen 600 mg tablet 600 mg PO Q8H PRN pain #10 tabs 02/04/22 Allergies Allergy/AdvReac Type Severity Reaction Status Date / Time No Known Allergies Allergy Verified 02/04/22 13:12 [No Known Allergies*] Review of Systems Review of Systems: Constitutional: No Fever, No Chills ENT/Mouth: No sore throat, No Rhinorrhea, No Swallowing Difficulty Cardiovascular: No Chest Pain, No SOB, No Orthopnea, No Edema Respiratory: No Cough, No Sputum, No Wheezing, No dyspnea Gastrointestinal: No Nausea, No Vomiting, No Diarrhea, No abdominal Pain, No Hematochezia, No Melena Genitourinary: + labia lumps , +pain to labia. No Dysuria, No Urinary Frequency, No Hematuria, no change in vaginal discharge Musculoskeletal: No joint pain, No Myalgias Skin: + genital skin changes, No Skin Lesions, No rash Neuro: No Weakness, No Numbness, No Dizziness, No Headache Psych: No Anxiety/Panic, No Depression Heme/Lymph: No Bruising, No Lymphadenopathy Endocrine: No Polyuria, No Polydipsia PMFSH Past Medical History Medical History Asthma IUD (intrauterine device) in place Migraine with aura Surgical History History of abdominoplasty History of sleeve gastrectomy Family History Family History Mother History of asthma History of anxiety Father Diabetes Heart problem Daughter Autism Son Autism Daughter No problems noted. 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 Oriented X3. No acute distress. Eyes: Pupils equal, round and reactive to light. ENT: Pharynx normal. Neck: Normal inspection. Neck supple. CVS: Normal heart rate and rhythm. Pulses normal. Respiratory: No respiratory distress. Breath sounds normal. Abdomen: Soft and nontender. +BS x4 Vaginal: Multiple indurated lesions on bilateral labia majora, no fluctuance, consistent with folliculitis Skin: Skin warm and dry. Normal skin color. Normal skin turgor. No rashes. Extremities: No lower extremity edema. Neuro: Oriented X 3. No motor deficit. No sensory deficit. Course Course Course Narrative: 26-year-old female presenting today with complaints of multiple labial cysts, worsening over past 3 days. On exam, multiple indurated lesions on bilateral labia majora no fluctuance, no warmth, extremely tender to palpation. Not amenable to drainage today, will start antibiotics and anti-inflammatories for pain control. Patient declining STI testing at this time. Discharge Plan Discharge Clinical Impression: Folliculitis Patient Disposition: Home, Self-Care Instructions: Folliculitis (ED) Additional Instructions: Keep area clean, dry, and avoid shaving or other irritation to the area. Apply warm compresses, soak in warm bath, use anti-inflammatories for pain control. Take antibiotics as prescribed. If you develop new or worsening symptoms call 911 or come back to the ER for further evaluation. Prescriptions: New ibuprofen 600 mg tablet 600 mg PO Q8H PRN (Reason: pain) Qty: 10 0RF cephalexin 500 mg capsule 500 mg PO Q6H 7 Days Qty: 28 0RF No Action vitamin A palmitate 10,000 unit capsule 10,000 unit PO DAILY Qty: 30 2RF cephalexin 500 mg capsule 500 mg PO QID 7 Days Qty: 28 0RF doxycycline hyclate 100 mg tablet 100 mg PO BID 7 Days Qty: 14 0RF calcium citrate-vitamin D3 315 mg-6.25 mcg (250 unit) tablet 2 tab PO BID ParaGard T 380A 380 square mm intrauterine device intrauterine fluconazole 150 mg tablet 150 mg PO DAILY Qty: 1 1RF iron 18 mg tablet 18 mg PO DAILY ascorbic acid (vitamin C) [Vitamin C] 500 mg capsule, extended release 500 mg PO DAILY zinc sulfate 50 mg zinc (220 mg) capsule 50 mg PO TID tretinoin 0.05 % cream topical BEDTIME spironolactone 100 mg tablet 100 mg PO DAILY folic acid 800 mcg tablet 0.8 mg PO DAILY fluconazole 150 mg tablet 150 mg PO ONCE 1 Days Qty: 1 1RF Rx Instructions: 150 mg tablet day 1 and Repeat another dose on day 4 terconazole 0.8 % cream 1 appful vaginal BEDTIME 3 Days Qty: 20 0RF Stand Alone Forms: Work/School Release
[2022-02-04] MEDS: Lidocaine 4 % Cream KIT 1 APPL TOPICAL (17:26)
== END 2022-02-04 17:36 | disposition home or self-care (01) ==
PROVIDERS: Emergency Provider Emergency Medicine; PCP Family Medicine
DX: L73.9 Follicular disorder, unspecified (principal); Z79.899 Other long term (current) drug therapy
CPT/HCPCS: 99282; 99283

== ENCOUNTER → 2022-02-18 09:38 | Outpatient (BNVA) | payer OTHER, SELFPAY | PROVIDERS: PCP Family Medicine; Referring Provider Surgery; Visit Provider Dietitian, Registered | DX: E66.3 Overweight (principal) | CPT/HCPCS: 97803 ==

== ENCOUNTER 2022-03-25 01:28 | Emergency (ER) | payer OTHER, SELFPAY ==
[2022-03-25 01:29] VITALS: BP 137/70; PULSE 84; RESP 16; TEMP 36.8; O2SAT 95; BMI 26.6
[2022-03-25 01:47] LABS: Hematocrit 32.8 % (37.0-47.0); Hemoglobin 11.1 g/dl (12.0-16.0); Mean Corpuscular HGB Conc 33.8 g/dl (31.0-35.0); Mean Corpuscular Hemoglobin 30.7 pg (27.0-33.0); Mean Corpuscular Volume 90.9 fL (80.0-98.0); Mean Platelet Volume 9.8 fL (9.4-12.3); Platelet Count 261 X10*3/uL (160-400); Red Blood Count 3.61 X10*6/uL (4.20-5.50); Red Cell Distribution Width 12.1 % (11.0-16.0); White Blood Count 10.8 X10*3/uL (4.8-10.8)
[2022-03-25 02:06] LABS: Alanine Aminotransferase 13 U/L (0-31); Albumin Level 4.1 g/dL (3.5-5.0); Alkaline Phosphatase 93 U/L (39-117); Anion Gap 16 (12-20); Aspartate Amino Transferase 17 U/L (5-31); Bilirubin Total 0.4 mg/dL (0.0-1.0); Blood Urea Nitrogen 13 mg/dL (9-16); Calcium 9.3 mg/dL (8.4-10.2); Carbon Dioxide 23 mmol/L (22-29); Chloride 104 mmol/L (96-108); Creatinine Clr Calc Pharmacy 104.7; Estimated Glomerular Filt Rate > 60; Glucose Random 103 mg/dL (60-115); Potassium 3.9 mmol/L (3.3-5.1); Sodium 139 mmol/L (135-145); Total Protein 7.1 g/dL (6.5-8.0)
--- NOTE | 2022-03-25 02:45 | ED.SKABFB ---
HPI - Skin/Abscess/Foreign Bdy General Chief complaint: Skin/Abscess/Foreign Body Stated complaint: cyst under arm Time Seen by Provider: 03/25/22 02:44 Source: patient Mode of arrival: ambulatory Limitations: no limitations History of Present Illness HPI narrative: Patient's history of recurrent abscesses comes here for abscess in the left axillary area for last 5 days. No fever no chills no history of MRSA Related Data Home Medications Medication Instructions Recorded Confirmed calcium citrate 315 mg 2 tab PO BID 07/30/20 06/13/21 calcium-vitamin D3 6.25 mcg (250 unit) tablet copper 380 square mm intrauterine intrauterine 07/30/20 06/13/21 device (ParaGard T 380A) ascorbic acid (vitamin C) 500 mg 500 mg PO DAILY 04/12/21 06/13/21 capsule,extended release (Vitamin C) iron 18 mg tablet 18 mg PO DAILY 04/12/21 06/13/21 folic acid 800 mcg tablet 0.8 mg PO DAILY 06/13/21 06/13/21 spironolactone 100 mg tablet 100 mg PO DAILY acne 06/13/21 06/13/21 tretinoin 0.05 % topical cream appl topical BEDTIME 06/13/21 06/13/21 zinc sulfate 50 mg zinc (220 mg) 50 mg PO TID 06/13/21 06/13/21 capsule Previous Rx's Medication Instructions Recorded fluconazole 150 mg tablet 150 mg PO DAILY #1 tab 08/10/20 vitamin A palmitate 10,000 unit 10,000 unit PO DAILY #30 caps 06/19/21 capsule fluconazole 150 mg tablet 150 mg PO ONCE 1 day #1 tab 06/20/21 terconazole 0.8 % vaginal cream 1 appful vaginal BEDTIME 3 days 06/20/21 #20 grams cephalexin 500 mg capsule 500 mg PO QID 7 days #28 caps 11/27/21 doxycycline hyclate 100 mg tablet 100 mg PO BID 7 days #14 tabs 11/27/21 cephalexin 500 mg capsule 500 mg PO Q6H 7 days #28 caps 02/04/22 ibuprofen 600 mg tablet 600 mg PO Q8H PRN pain #10 tabs 02/04/22 doxycycline hyclate 100 mg tablet 100 mg PO BID #20 tabs 03/25/22 ibuprofen 600 mg tablet 600 mg PO Q6H PRN fever or pain 03/25/22 #30 tabs Allergies Allergy/AdvReac Type Severity Reaction Status Date / Time No Known Allergies Allergy Verified 02/04/22 13:12 [No Known Allergies*] Review of Systems Review of Systems: Yes all other systems are reviewed and are negative [facility] Past Medical History Medical History Asthma IUD (intrauterine device) in place Migraine with aura Surgical History History of abdominoplasty History of sleeve gastrectomy Family History Family History Mother History of asthma History of anxiety Father Diabetes Heart problem Daughter Autism Son Autism Daughter No problems noted. Social History Social History Alcohol intake: never Patient Tobacco Use Status: Never used Tobacco Smoked in Last 30 Days: No Use of substances other than those prescribed or required for medical reasons: No Advance Directives: No Patient : No Current occupational status: employed Current occupation: [employer] Gender identity: Female Physical Exam Vital Signs: Vital Signs: Last Vital Signs Temp 98.3 F 03/25/22 02:50 Pulse 82 03/25/22 02:50 Resp 18 03/25/22 02:50 BP 118/68 03/25/22 02:50 Pulse Ox 98 03/25/22 02:50 O2 Del Method 03/25/22 02:50 BMI result Body Mass Index 26.6 Appearance: Alert. Oriented X3. No acute distress. Neck: Normal inspection. Neck supple. CVS: Normal heart rate and rhythm. Pulses normal. Respiratory: No respiratory distress. Equal air entry bilateral, Abdomen: Soft and nontender. Bowel sounds are present, Skin: Skin warm and dry. Normal skin color. Normal skin turgor. 3 x 3 cm abscess fluctuant left axillary area Neuro: Oriented X 3. MDM - Skin/Abscess/Foreign Bdy Lab Data Result diagrams: 03/25/22 01:41 03/25/22 01:41 Labs: Lab Results 03/25/22 03/25/22 Range/Units 01:41 01:41 WBC 10.8 (4.8-10.8) X10*3/uL RBC 3.61 L (4.20-5.50) X10*6/uL Hgb 11.1 L (12.0-16.0) g/dl Hct 32.8 L (37.0-47.0) % MCV 90.9 (80.0-98.0) fL MCH 30.7 (27.0-33.0) pg MCHC 33.8 (31.0-35.0) g/dl RDW 12.1 (11.0-16.0) % Plt Count 261 (160-400) X10*3/uL MPV 9.8 (9.4-12.3) fL Absolute Nucleated RBC 0.000 (0.0-0.012) X10*3/uL Nucleated RBC % (auto) 0.0 (0.0-0.2) /100WBC Sodium 139 (135-145) mmol/L Potassium 3.9 (3.3-5.1) mmol/L Chloride 104 (96-108) mmol/L Carbon Dioxide 23 (22-29) mmol/L Anion Gap 16 (12-20) BUN 13 (9-16) mg/dL Creatinine 0.72 (0.5-1.4) mg/dL Estim Creat Clear Calc 104.7 Estimated GFR > 60 Random Glucose 103 (60-115) mg/dL Calcium 9.3 D (8.4-10.2) mg/dL Total Bilirubin 0.4 (0.0-1.0) mg/dL AST 17 (5-31) U/L ALT 13 (0-31) U/L Alkaline Phosphatase 93 (39-117) U/L Total Protein 7.1 (6.5-8.0) g/dL Albumin 4.1 (3.5-5.0) g/dL Procedures Abscess I/D Site: upper extremity (Axillary) Side (if applicable): left Local Anesthetic: lidocaine 1% Amount of anesthesia used (mL): 5 Technique: incised with blade Amount of fluid expressed (mL): 10 Sent for culture/gram staining?: No Irrigation: No Packing used?: iodoform Discharge Plan Discharge Clinical Impression: Cutaneous abscess of left axilla Patient Disposition: Home, Self-Care Instructions: Abscess Incision and Drainage (DC) Additional Instructions: Local care as advised Packing removal in 2 days Take antibiotic as prescribed Ibuprofen for pain Follow up with your PCP Prescriptions: New doxycycline hyclate 100 mg tablet 100 mg PO BID Qty: 20 0RF ibuprofen 600 mg tablet 600 mg PO Q6H PRN (Reason: fever or pain) Qty: 30 0RF No Action vitamin A palmitate 10,000 unit capsule 10,000 unit PO DAILY Qty: 30 2RF cephalexin 500 mg capsule 500 mg PO QID 7 Days Qty: 28 0RF doxycycline hyclate 100 mg tablet 100 mg PO BID 7 Days Qty: 14 0RF ibuprofen 600 mg tablet 600 mg PO Q8H PRN (Reason: pain) Qty: 10 0RF cephalexin 500 mg capsule 500 mg PO Q6H 7 Days Qty: 28 0RF calcium citrate-vitamin D3 315 mg-6.25 mcg (250 unit) tablet 2 tab PO BID ParaGard T 380A 380 square mm intrauterine device intrauterine fluconazole 150 mg tablet 150 mg PO DAILY Qty: 1 1RF iron 18 mg tablet 18 mg PO DAILY ascorbic acid (vitamin C) [Vitamin C] 500 mg capsule, extended release 500 mg PO DAILY zinc sulfate 50 mg zinc (220 mg) capsule 50 mg PO TID tretinoin 0.05 % cream topical BEDTIME spironolactone 100 mg tablet 100 mg PO DAILY folic acid 800 mcg tablet 0.8 mg PO DAILY fluconazole 150 mg tablet 150 mg PO ONCE 1 Days Qty: 1 1RF Rx Instructions: 150 mg tablet day 1 and Repeat another dose on day 4 terconazole 0.8 % cream 1 appful vaginal BEDTIME 3 Days Qty: 20 0RF
[2022-03-25 02:50] VITALS: BP 118/68; PULSE 82; RESP 18; TEMP 36.8; O2SAT 98
[2022-03-25] MEDS: Lidocaine HCl 1 % MPF 5 ML VIAL 30 ML INFILTRATI (03:54)
[2022-03-25] MEDS: Ibuprofen 600 MG TABLET PO (03:54)
--- NOTE | 2022-03-25 03:58 | PC.NURSE ---
pt pwd and ambulatory at time of discharge. pt medicated according to MAR at time of discharge. pt provided with discharge packet. pt verbalized understanding of discharge plan
== END 2022-03-25 04:00 | disposition home or self-care (01) ==
PROVIDERS: Emergency Provider Internal Medicine
DX: L02.412 Cutaneous abscess of left axilla (principal); Z79.899 Other long term (current) drug therapy
CPT/HCPCS: 10060; 36415; 80053; 85027; 99284

== ENCOUNTER 2023-01-22 14:34 | Outpatient (REF) | payer OTHER, SELFPAY ==
[2023-01-23 03:45] LABS: Syphilis Screen Nonreactive (Nonreactive)
[2023-01-23 03:56] LABS: HIV AB/AG Nonreactive (Nonreactive); HIV Num 1 0.06 S/CO (0.00-0.99)
[2023-01-23 05:36] LABS: CT PCR NOT DETECTED (Not Detect.); NG PCR NOT DETECTED (Not Detect.)
[2023-01-23 15:44] LABS: BV Int Neg Control Negative (Negative); BV Int Pos Control Positive (Positive)
== END 2023-01-22 14:35 | disposition home or self-care (01) ==
LOC: HO.HHCL 14:34
PROVIDERS: Visit Provider Family Medicine
DX: Z20.2 Contact with and (suspected) exposure to infections with a predominantly sexual mode of transmission (principal)
CPT/HCPCS: 0353U; 36415; 86780; 87255; 87389; 87480; 87510; 87660

== ENCOUNTER 2023-07-30 14:16 | Outpatient (REF) | payer OTHER, SELFPAY ==
--- NOTE | ~2023-07-30 | XR_ITS ---
EXAMINATION: XR ABDOMEN KUB CLINICAL INDICATION: Lower abdominal pain Subcutaneous tender irregular nodule 2 inches below the umbilicus. COMPARISON: None available. TECHNIQUE: AP view of the abdomen. FINDINGS: The bowel gas pattern is normal with no evidence of ileus or obstruction. Tiny calcification in the right of the pelvis is consistent with a phlebolith. Multiple surgical clips are seen in the left upper quadrant. A T-shaped IUD is seen in the center the pelvis. No acute bony abnormality. XR/XR abdomen 1V IMPRESSION: 1. No obstruction. 2. T-shaped IUD in the center the pelvis.
== END 2023-07-30 14:17 | disposition home or self-care (01) ==
LOC: HO.HHCX 14:16
PROVIDERS: Visit Provider Internal Medicine
DX: R10.30 Lower abdominal pain, unspecified (principal)
CPT/HCPCS: 74018

== ENCOUNTER 2023-07-30 14:41 | Outpatient (REF) | payer OTHER, SELFPAY ==
[2023-07-31 03:49] LABS: CT PCR NOT DETECTED (Not Detect.); NG PCR NOT DETECTED (Not Detect.)
[2023-07-31 04:18] LABS: Syphilis Screen Nonreactive (Nonreactive)
[2023-07-31 04:35] LABS: HIV AB/AG Nonreactive (Nonreactive); HIV Num 1 0.05 S/CO (0.00-0.99)
[2023-07-31 16:13] LABS: BV Int Neg Control Negative (Negative); BV Int Pos Control Positive (Positive)
== END 2023-07-30 14:42 | disposition home or self-care (01) ==
LOC: HO.HHCL 14:41
PROVIDERS: Visit Provider Internal Medicine
DX: R10.2 Pelvic and perineal pain (principal); A60.04 Herpesviral vulvovaginitis
CPT/HCPCS: 0353U; 36415; 86780; 87086; 87088; 87186; 87389; 87480; 87510; 87660

== ENCOUNTER 2023-10-06 15:28 | Outpatient (REF) | payer OTHER, SELFPAY ==
[2023-10-06 16:15] LABS: MANUAL DIFF FLAG NO
[2023-10-06 16:37] LABS: Basophils Percent Auto 0.5 % (0-2); Eosinophils Absolute Auto 0.1 X10*3/uL (0.0-0.4); Eosinophils Percent Auto 1.4 % (0-4); Hematocrit 36.4 % (37.0-47.0); Hemoglobin 12.3 g/dl (12.0-16.0); Imm Gran Abs Auto 0.01 X10*3/uL (0.00-0.03); Imm Gran Pct Auto 0.1 % (0.0-0.4); Lymphocytes Absolute Auto 2.2 X10*3/uL (1.2-4.9); Lymphocytes Percent Auto 27.6 % (20-40); Mean Corpuscular HGB Conc 33.8 g/dl (31.0-35.0); Mean Corpuscular Hemoglobin 31.6 pg (27.0-33.0); Mean Corpuscular Volume 93.6 fL (80.0-98.0); Mean Platelet Volume 10.6 fL (9.4-12.3); Monocytes Absolute Auto 0.5 X10*3/uL (0.1-1.2); Monocytes Percent Auto 5.9 % (2-11); Neutrophils Absolute Auto 5.1 x10*3/uL (2.0-8.3); Neutrophils Percent Auto 64.5 % (45-73); Platelet Count 291 X10*3/uL (160-400); Red Blood Count 3.89 X10*6/uL (4.20-5.50); Red Cell Distribution Width 11.9 % (11.0-16.0); White Blood Count 7.9 X10*3/uL (4.8-10.8)
[2023-10-06 16:40] LABS: INTERNATIONAL NORM RATIO 1.1 (0.9-1.1); Prothrombin Time 13.2 SEC (11.1-13.3)
[2023-10-06 16:43] LABS: Partial Thromboplastin Time 34.3 SEC (26.0-36.8)
[2023-10-06 16:45] LABS: Estimated Average Glucose 94 mg/dL; Hemoglobin A1c % 4.9 % (<6.0)
[2023-10-06 17:37] LABS: Alanine Aminotransferase 13 U/L (0-31); Albumin Level 4.4 g/dL (3.5-5.0); Alkaline Phosphatase 73 U/L (39-117); Anion Gap 14 (12-20); Aspartate Amino Transferase 16 U/L (5-31); Bilirubin Total 0.3 mg/dL (0.0-1.0); Blood Urea Nitrogen 11 mg/dL (9-16); Calcium 9.8 mg/dL (8.4-10.2); Carbon Dioxide 26 mmol/L (22-29); Chloride 106 mmol/L (96-108); Cholesterol 183 mg/dL (<200); Estimated Glomerular Filt Rate > 60; Glucose Random 89 mg/dL (60-115); HDL Cholesterol 58 mg/dL (>40); LDL Cholesterol Calculated 115 mg/dL (<100); Potassium 3.9 mmol/L (3.3-5.1); Sodium 142 mmol/L (135-145); Total Protein 7.6 g/dL (6.5-8.0); Triglycerides 53 mg/dL (<150)
[2023-10-06 17:52] LABS: TSH reflex Free T4 1.22 uIU/mL (0.32-4.0)
[2023-10-06 18:35] LABS: CT PCR NOT DETECTED (Not Detect.); NG PCR NOT DETECTED (Not Detect.)
[2023-10-06 19:44] LABS: Reflex LDLD? No
[2023-10-07 03:36] LABS: Syphilis Screen Nonreactive (Nonreactive)
[2023-10-07 04:04] LABS: HBS Num1 0.95 mIU/mL (0-7.99); HBc Num1 0.17 S/CO (0.00-0.79); HIV AB/AG Nonreactive (Nonreactive); HIV Num 1 0.05 S/CO (0.00-0.99); Hepatitis B Core Antibody Nonreactive (Nonreactive); ~Hepatitis B Surface Antibody NONREACTIVE (Nonreactive); ~Hepatitis C Antibody Nonreactive (Nonreactive)
== END 2023-10-06 15:29 | disposition home or self-care (01) ==
LOC: HO.HHCL 15:28
PROVIDERS: Visit Provider Family Medicine
DX: Z01.818 Encounter for other preprocedural examination (principal); Z11.4 Encounter for screening for human immunodeficiency virus [HIV]; Z13.6 Encounter for screening for cardiovascular disorders; R68.89 Other general symptoms and signs; Z20.2 Contact with and (suspected) exposure to infections with a predominantly sexual mode of transmission
CPT/HCPCS: 0353U; 36415; 80053; 80061; 83036; 84443; 85025; 85610; 85730; 86704; 86706; 86780; 86803; 87389

== ENCOUNTER 2023-12-16 14:22 | Outpatient (REF) | payer OTHER, SELFPAY ==
[2023-12-16 16:00] LABS: Cholesterol 186 mg/dL (<200); HDL Cholesterol 63 mg/dL (>40); Iron 82 mcg/dL (30-160); LDL Cholesterol Calculated 113 mg/dL (<100); Percent Iron Saturation 34 % (15-50); Total Iron Binding Capacity 244 mcg/dL (228-428); Triglycerides 51 mg/dL (<150); Unsaturated Iron Binding 162 ug/dL
[2023-12-16 16:12] LABS: Vitamin D 25-OH Total 29.7 ng/mL (>30)
[2023-12-16 16:25] LABS: Folate 16.9 ng/mL (> or = 4.0); Vitamin B12 798 pg/mL (200-900)
[2023-12-21 05:38] LABS: Vitamin B1 9 nmol/L (8-30)
[2023-12-21 18:53] LABS: Zinc 51 mcg/dL (60-130)
[2023-12-22 16:53] LABS: Vitamin A 47 mcg/dL (38-98)
== END 2023-12-16 14:23 | disposition home or self-care (01) ==
LOC: HO.LAB 14:22
PROVIDERS: PCP Family Medicine; Visit Provider Physician Assistant Surgical
DX: Z13.6 Encounter for screening for cardiovascular disorders (principal); E50.9 Vitamin A deficiency, unspecified; Z98.84 Bariatric surgery status
CPT/HCPCS: 36415; 80061; 82306; 82607; 82746; 83540; 84425; 84590; 84630; 99212

== ENCOUNTER 2023-12-16 14:22 | Outpatient (AMB) | payer OTHER, SELFPAY ==
--- NOTE | 2023-12-16 14:27 | A.OFFVIS_ITS ---
VS Expanded 12/16/23 14:37 BP 108/54 L Blood Pressure Location Rt brachial Blood Pressure Position Sitting Pulse 79 Pulse Source Pulse Oximeter Temp 97.1 F Temperature Source Tympanic Pulse Oximetry 98 Oxygen Delivery Method Room Air Height 5 ft 2.5 in Weight 164 lb 6.4 oz BMI 29.6 Body Fat % 26.6 Body Fat Mass 43.6 Fat Free Mass 120.6 Visceral Fat Rating 3.0 Body Water % 52.8 Body Water Mass 86.6 Muscle Mass/Score 114.4 Basal Metabolic Rate/Score 1,638 Intake Visit Reasons: (OV) MO LSG 08/26/18 Allergies No Known Allergies [No Known Allergies*] Allergy (Verified 12/16/23 14:40) HPI Comments Details: This?a?26?yo female who is s/p LSG without hiatal hernia repair on?08/26/[address] Knag. Presents for 5 year 4 month post op visit. Weight today is 164.4 pounds, with a BMI today of 30.1. She underwent panniculectomy in [place], [place] 03/20/21. She states she had breast augmentation in [place], 10/20/23. Reports infrequent but normal bowel movements every 1-2 days and uses stool softeners regularly. Present meal plan includes: 2 eggs with slice of avocado every other day, low fat south su[place]ese yogart and 4-6 forks salad, dinner with 6 forks protein and 6 forks salad or vegetables. She may substitute 1/2 vegetable portion for rice 3 days a week if she wants.. She will add a premier protein clear water.. Drinkin oz water ? Exercise routine includes: weights at home has gym membership at [employer] home video exercises 3 x per week, not tracking calories. [facility] Medical History Migraine with aura Asthma IUD (intrauterine device) in place Surgical History History of abdominoplasty History of sleeve gastrectomy Family History Mother History of asthma History of anxiety Father Diabetes Heart problem Daughter Autism Son Autism Daughter No problems noted. Social History Alcohol intake: never Patient Tobacco Use Status: Never used Tobacco Current occupational status: employed Current occupation: [employer] Gender identity: Female Female Reproductive History Menstrual Age of Menarche: 12 Assessment & Plan Assessment & Plan (1) S/P laparoscopic sleeve gastrectomy: Code(s): Z98.84 - Bariatric surgery status Category: Surgical Plan: Patient will restart meal plan: [employer] 2 scoops in 10 oz of almond milk x2 Meal 6 forks protein 6 forks vegetables Half cup fresh fruit if needed Return to [employer] utilizing cardio machines with a goal of burning 400- 500 calories 4-5 days per week as she states she can only go 4-5 days per week. Return to clinic 4-6 weeks Orders: Orders IRON PROFILE Today E50.9 - Vitamin A deficiency, unspecified, Z98.84 - Bariatric surgery status Zinc Today E50.9 - Vitamin A deficiency, unspecified, Z98.84 - Bariatric surgery status PTHI Today E50.9 - Vitamin A deficiency, unspecified, Z98.84 - Bariatric surgery status Vitamin D 25-OH Total Today E50.9 - Vitamin A deficiency, unspecified, Z98.84 - Bariatric surgery status Vitamin B12 and Folate Today E50.9 - Vitamin A deficiency, unspecified, Z98.84 - Bariatric surgery status Vitamin A Today E50.9 - Vitamin A deficiency, unspecified, Z98.84 - Bariatric surgery status Vitamin B1 Today E50.9 - Vitamin A deficiency, unspecified, Z98.84 - Bariatric surgery status Lipid Panel Today E50.9 - Vitamin A deficiency, unspecified, Z98.84 - Bariatric surgery status
[2023-12-16 14:37] VITALS: BP 108/54; PULSE 79; TEMP 36.2; O2SAT 98; BMI 29.6
== END 2023-12-16 14:49 | disposition home or self-care (01) ==
PROVIDERS: PCP Family Medicine; Visit Provider Physician Assistant Surgical
DX: E66.3 Overweight (principal); Z68.29 Body mass index [BMI] 29.0-29.9, adult; Z90.3 Acquired absence of stomach [part of]; Z98.84 Bariatric surgery status
CPT/HCPCS: 99214

== ENCOUNTER 2024-03-08 17:58 | Outpatient (REF) | payer OTHER, SELFPAY ==
[2024-03-09 12:06] LABS: CT PCR NOT DETECTED (Not Detect.); NG PCR NOT DETECTED (Not Detect.)
[2024-03-09 14:51] LABS: Bacterial Vaginosis PCR NEGATIVE (Negative); Candida Group PCR DETECTED (Not Detect); Candida glab krusei PCR DETECTED (Not Detect); Trichomonas vaginalis PCR NOT DETECTED (Not Detect)
== END 2024-03-08 17:59 | disposition home or self-care (01) ==
LOC: HO.HHCLNP 17:58
PROVIDERS: Visit Provider Family Medicine
DX: N89.8 Other specified noninflammatory disorders of vagina (principal)
CPT/HCPCS: 0352U; 87491; 87591

== ENCOUNTER 2024-09-09 14:47 | Outpatient (REF) | payer OTHER, SELFPAY ==
--- OUTSIDE RECORDS SUMMARY | 2024-09-09 15:00 | XMS_ITS | Encounter Summary ---
Author Organization [employer] Address [address] [facility] 7 [place] [address] Care Team Providers Care Bike Mechanic Name Role Phone Lucy Larkin MD Primary Care Provider [phone] Reason for Visit * Reason Comments Med Refill Encounter Details Date Type Department Care Team ([facility] st Contact Info) Description 01/18/2024 Refill [facility] MED & PEDS [address] [place], [place] [phone] Tati Johnson MD [address] [place] [address] Social History Tobacco Use Types Packs/Day Years Used Date Smoking Tobacco: Never Smokeless Tobacco: Never Depression Answer Date Recorded Patient Health Questionnaire-9 Score 0 10/06/2023 Patient Health Questionnaire-9 Score 0 10/06/2023 Last PHQ-9: Questionnaire Data Not on file 0 10/06/2023 Housing Stability Answer Date Recorded What is your housing situation today? I have kye medina 04/15/[address] you li ve. Do you have problems with any of the following? None of the above 04/15/2023 Food Insecurity Answer Date Recorded Within the past 12 months, y ou worried that your food would run out before you got money to buy more: Often true 04/15/2023 Within the past 12 months,th e food you bought just didn't last and you didn't have enough money to get more: Often true Transportation Answer Date Recorded In the past 12 months, has l ack of transportation kept you from medical appts, meetings, work or from getting things needed for daily living? No 04/15/2023 Utilities Answer Date Recorded In the past 12 months, has t he electric, gas, oil or water company threatened to shut off services in your home? No 04/15/2023 Depression Answer Date Recorded Patient Health Questionnaire-2 Score 0 10/06/2023 Comments Unknown Sex and Gender Information Value Date Recorded Sex Assigned at Female 03/31/2022 10:20 AM EDT Legal Sex Female 10:20 AM EDT Gender Identity Female 03/31/2022 10:20 AM EDT Sexual Orientation Straight 03/31/2022 10 :20 AM EDT documented as of this encounter Plan of Treatment Not on file documented as of this encounter Visit Diagnoses Not on filedocumented in this encounter Additional Health Concerns Assessment Noted Time PHQ-9 Depression Total Score: 0 10/06/19 24 3:03 PM EDT documented as of this encounter Care Teams Bike Mechanic Relationship Specialty Start Date End Date Lucy Larkin MD [address] [place] [id number] PCP - General Family Medicine 11/17/13 documented as of this encounter
--- OUTSIDE RECORDS SUMMARY | 2024-09-09 15:00 | XMS_ITS | Encounter Summary ---
Author Organization [employer] Address [address] [place] [address] 7 [place] [address] Care Team Providers Care Head Golf Coach Name Role Phone Lucy Larkin MD Primary Care Provider [phone] Encounter Details Date Type Department Care Team (Late st Contact Info) Description 03/02/2023 Abstract [facility] MEDICINE [address] [place] [address] Lucy Larkin MD [address] [place] [address] Social History Tobacco Use Types Packs/Day Years Used Date Smoking Tobacco: Never Smokeless Tobacco: Never Comments Unknown Sex and Gender Information Value Date Recorded Sex Assigned at Female 03/31/2022 10:20 AM EDT Legal Sex Female 10:20 AM EDT Gender Identity Female 03/31/2022 10:20 AM EDT Sexual Orientation Straight 03/31/2022 10 :20 AM EDT documented as of this encounter Plan of Treatment Not on file documented as of this encounter Visit Diagnoses Not on filedocumented in this encounter Care Teams Head Golf Coach Relationship Specialty Start Date End Date Lucy Larkin MD [address] [place], [place] [phone] PCP - General Family Medicine 11/17/13 documented as of this encounter
--- OUTSIDE RECORDS SUMMARY | 2024-09-09 15:00 | XMS_ITS | Encounter Summary ---
Author Organization [employer] Address [address] [facility] 7 [place] [address] Care Team Providers Care Patient Assessment Coordinator Name Role Phone Lucy Larkin MD Primary Care Provider [phone] Reason for Visit * Reason Onset Date Comments chart prep 09/08/2024 Encounter Details Date Type Department Care Team ([facility] st Contact Info) Description 09/08/2024 Telephone [facility] [address] [place] [address] Chloe eHster MA chart prep Social History Tobacco Use Types Packs/Day Years [...] AM EDT documented as of this encounter Miscellaneous Notes * Telephone Encounter - Chloe Hester MA - 09/08/2024 2:19 PM EDT Chart Prep Labs: done Images: ordered 10/06/23 Referrals: not applicable Vaccines due: yes Screenings: mammogram and pap smear Overdue care gaps: SBIRT and SDOH documented in this encounter Plan of Treatment Not on file documented as of this encounter Visit Diagnoses Not on filedocumented in this encounter Additional Health Concerns Assessment Noted Time PHQ-9 Depression Total Score: 0 10/06/19 3:03 PM EDT documented as of this encounter Care Teams Patient Assessment Coordinator Relationship Specialty Start Date End Date Lucy Larkin MD [address] [place] [address] PCP - General Family Medicine 11/17/13 documented as of this encounter
--- OUTSIDE RECORDS SUMMARY | 2024-09-09 15:00 | XMS_ITS | Encounter Summary ---
Author Organization [employer] [facility] Address [address] [place] [address] 7 [place] [address] Care Team Providers Care Optometrist Owner Name Role Phone Lucy Larkin MD Primary Care Provider [phone] Reason for Visit * Reason Onset Date Comments Appointment 06/30/2022 Patient missed a ppt for crown prep at 10 because she thought it was at 3pm PA Expires on 07/06/22 through [facility] can it be resubmitted Encounter Details Date Type Department Care Team (Late st Contact Info) Description 06/30/2022 Telephone [facility] [address] [place] [address] Melina Saunders DDS [address] [place], [place] [phone] Appointment (Patient missed appt for crown prep at 10 because she thought it was at 3pm PA Expires on 07/06/22 through [facility] can it be resubmitted ) Social History Tobacco Use Types Packs/Day Years Used Date Smoking Tobacco: Never Assessed Comments Unknown Sex and Gender Information Value Date Recorded Sex Assigned at Female 03/31/2022 10:20 AM EDT Legal Sex Female 10:20 AM EDT Gender Identity Female 03/31/2022 10:20 AM EDT Sexual Orientation Straight 03/31/2022 10 :20 AM EDT COVID-19 Exposure Response Date Recorded In the last 10 days, have yo u been in contact with someone who was confirmed or suspected to have Coronavirus/COVID-19? No / Unsure 07/03/2022 10:55 AM EST documented as of this encounter Miscellaneous Notes * Telephone Encounter - Angie Edwards - 06/30/2022 2:17 PM EST Patient missed appt for crown prep at 10 because she thought it was at 3pm PA Expires on 07/06/22 through [facility] can it be resubmitted documented in this encounter Plan of Treatment Not on file documented as of this encounter Visit Diagnoses Not on filedocumented in this encounter Care Teams Optometrist Owner Relationship Specialty Start Date End Date Lucy Larkin MD [address] [place] [id number] PCP - General Family Medicine 11/17/13 documented as of this encounter
--- OUTSIDE RECORDS SUMMARY | 2024-09-09 15:00 | XMS_ITS | Encounter Summary ---
Author Organization [employer] Address [address] [facility] 7 [place] [address] Care Team Providers Care Insurance Processing Clerk Name Role Phone Lucy Larkin MD Primary Care Provider [phone] Reason for Visit * Reason Comments Med Refill Encounter Details Date Type Department Care Team ([facility] st Contact Info) Description 09/09/2024 Refill [facility] MEDICINE [address] [place] [address] Lucy Larkin MD [address] [place] [address] Social History Tobacco Use Types Packs/Day Years [...] documented as of this encounter Care Teams Insurance Processing Clerk Relationship Specialty Start Date End Date Lucy Larkin MD [address] [place] [id number] PCP - General Family Medicine 11/17/13 documented as of this encounter
--- OUTSIDE RECORDS SUMMARY | 2024-09-09 15:00 | XMS_ITS | Encounter Summary ---
Author Organization [employer] Address [address] [facility] 7 [place] [address] Care Team Providers Care Kennel Operator Name Role Phone Lucy Larkin MD Primary Care Provider [phone] Encounter Details Date Type Department Care Team ([facility] st Contact Info) Description 08/14/2023 Orders Only [facility] CH[facility] MED & PEDS [address] [place], [place] [phone] Tati Johnson MD [address] [place] [address] Social History Tobacco Use Types Packs/Day Years Used Date Smoking Tobacco: Never Smokeless Tobacco: Never Housing Stability Answer Date Recorded What is your housing situation today? I have kyemadhu medina 04/15/[address] you [...] off services in your home? No 04/15/2023 Comments Unknown Sex and Gender Information Value [...] on filedocumented in this encounter Care Teams Kennel Operator Relationship Specialty Start Date End Date Lucy Larkin MD [address] [place] [phone] PCP - General Family Medicine 11/17/13 documented as of this encounter
--- OUTSIDE RECORDS SUMMARY | 2024-09-09 15:00 | XMS_ITS | Encounter Summary ---
Author Organization [employer] Address [address] [facility] 7 [place] [address] Care Team Providers Care Marzipan Maker Name Role Phone Lucy Larkin MD Primary Care Provider [phone] Reason for Visit * Reason Comments Med Refill Encounter Details Date Type Department Care Team ([facility] st Contact Info) Description 11/16/2023 Refill [facility] [address] [place] [address] Tati Johnson MD [address] [place] [address] Social History Tobacco Use Types Packs/Day Years [...] documented as of this encounter Care Teams Marzipan Maker Relationship Specialty Start Date End Date Lucy Larkin MD [address] [place] [phone] PCP - General Family Medicine 11/17/13 documented as of this encounter
--- OUTSIDE RECORDS SUMMARY | 2024-09-09 15:00 | XMS_ITS | Clinical Summary ---
Author Organization [employer] Address [address] [place] [address] 7 [place] [address] Care Team Providers Care Cable Machine Operator Name Role Phone Lucy Larkin MD Primary Care Provider [phone] Allergies No known active allergies Medications acetaminophen (Tylenol) 500 MG tablet take 1 or 2 tablet by oral route every 6 hours as needed not to exceed 6 tablets per 24hrs Active loratadine (Claritin) 10 MG tablet Take 1 tablet (10 mg) by mouth Once per day. 30 tablet 11 024 2024 Active folic acid (Folvite) 800 MCG tablet Take 1 tablet (800 mcg) by mouth Once per day. 90 tablet 3 Active cyanocobalamin (Vitamin B-12) 500 MCG tablet Take 1 tablet (500 mcg) by mouth Once per day. 90 tablet Active ascorbic acid (Vitamin C) 500 MG tablet Take 1 tablet (500 mg) by mouth Once per day. 90 tablet 024 2024 Active ferrous sulfate (Fe Tabs) 325 (65 Fe) MG EC tablet Take 1 tablet (325 mg) by mouth with breakfast. Do not crush, chew, or split. 90 tablet 024 2024 Active calcium citrate 315 mg + D2 6.25 mcg tablet Take 1 tablet by mouth 2 times daily. 180 tablet 3 Active Acne Medication 5 5 % gel APPLY TO THE AFFECTED AREA(S) TWICE DAILY 60 g 1 05/15/2 024 Active valACYclovir (Valtrex) 500 MG tabletIndicatio ns:History of herpes labialis Take 1 tab po daily 90 tablet 1 024 Active FT Clotrimazole 1 % vaginal creamIndication s:Vaginal itching INSERT 1 APPLICATORFUL VAGINALLY EVERY DAY AT BEDTIME FOR 7 DAYS 45 g 025 Active albuterol 108 (90 Base) MCG/ACT inhalerIndicati ons:Mild intermittent asthma without complication inhale 1- 2 puff by inhalation route every 6 hours as needed 18 g 025 Active ibuprofen 600 MG tablet Take 1 tablet by mouth in the morning, at noon, and at bedtime. Take with food 022 2024 Discontinued(T herapy completed) albuterol 108 (90 Base) MCG/ACT inhaler inhale 1- 2 puff by inhalation route every 6 hours as needed 020 2024 Discontinued(R eorder (will not trigger notification to Pharmacy)) doxycycline (Vibra-Tabs) 100 MG tablet TAKE 1 TABLET BY MOUTH TWICE DAILY WITH A FULL GLASS OF WATER AND DO NOT LIE DOWN FOR AT LEAST 30 MINUTES AFTER 60 tablet 1 024 2024 Discontinued(T herapy completed) Active Problems Problem Noted Date Diagnosed Date History of herpes labialis 03/08/2024 Assessment & Plan (03/08/2024 9:35 AM EDT): Currently no lesions on exam, just diffuse redness. Possibly candidiasis. Has had positive Herpes culture in the past and reports recurrent outbreaks. Outbreaks occur every month at start of period. -discussed taking Valacyclovir tablets for 6 months in advance. -given SureSwabs to self swab for candidiasis. -also sent Gonorrhea and Chlamydia. -given work note'-ER precautions discussed. Vaginal itching 03/08/2024 Vaginal pain 03/08/2024 Overview (03/08/2024): Pt having symptoms every menses for > 6 months. She feels it is HSV outbreak. Currently no lesions on exam, just mild erythremia at introitus. Has had positive Herpes culture in the past and reports recurrent outbreaks. Differential includes HSV outbreak, candidiasis, vs irritation -shew would like HSV suppressive therapy, rx valacyclovir 500 daily written, advise if symptoms still occur while on suppressive therapy, symptoms likely not due to HSV infection and advised to stop daily medication if this occurs. -given SureSwabs to self swab for candidiasis -sent Gonorrhea and Chlamydia -given work note -ER precautions discussed. Status post bariatric surgery 12/01/2023 Anxiety and depression 10/07/2023 History of ADHD 10/07/2023 Assessment & Plan (10/07/2023 1:14 PM EDT): - patient was receiving stimulants during school years - will have integrated behavioral health service evaluation at next visit Viral wart on finger 10/07/2023 Assessment & Plan (10/07/2023 12:59 PM EDT): - schedule cryotherapy Acne 02/12/2023 Assessment & Plan (02/12/2023 5:08 PM EDT): Pt with ongoing acne for years not responsive to mx topical tx in the past -will try with benzoyl peroxide 5% gel BID over affected area -doxycycline 100 mg BID -will try for 2 months -explained to pt possible SE and to take tab with plenty of water and do not lay down after taking med and to avoid direct sun exposure for risk of photosensitivity -pt will f up w PCP in2 to 3 months to monitor and for annual exam Chronic depression 09/24/2015 Assessment & Plan (10/07/2023 1:17 PM EDT): PHQ 9 score 0 today Will have integrated behavioral health service evaluation at next visit Dysmenorrhea 01/24/2014 Allergic rhinitis 02/23/2012 Assessment & Plan (10/07/2023 1:17 PM EDT): - resume loratadine - patient dislikes nasal spray Asthma 02/23/2012 Assessment & Plan (10/07/2023 1:10 PM EDT): - patient states it has been well-controlled and has not used inhaler for few years - continue albuterol HFA prn Mood disorder 02/23/2012 Assessment & Plan (10/07/2023 1:15 PM EDT): - Hx ADHD, anxiety, and depression - previously receiving stimulants (Concerta and Adderall) and SSRI (citalopram and fluoxetine) - PHQ9 is 0, yet patient is interested in resuming pharmacological treatment due to worsening anxiety symptoms (?ADHD symptoms) - will have integrated behavioral health service evaluation at next visit Chronic headache disorder 02/23/2012 Migraine 02/23/2012 Obesity 02/23/2012 Assessment & Plan (10/07/2023 1:11 PM EDT): - continue working on lifestyle modifications Resolved Problems Problem Noted Date Diagnosed Date Resolved Date Vaginal lesion 01/22/2023 10/07/2023 Assessment & Plan (01/22/2023 2:12 PM EDT): Swab for HSV obtained, check RPR. No evidence of bacterial infection. Possibly due to shaving. Routine STI screening done. Abscess of labia 03/30/2018 10/07/2023 Encounters Date Type Department Care Team Description 09/09/2024 1:45 PM EDT Office Visit [facility] [address] [place] [address] Jenny Metzger ANP Mild intermittent asthma without complication (Primary Dx); Chronic depression; Status post bariatric surgery; Screening for cervical cancer; Healthcare maintenance; Preop examination 09/09/2024 Travel 09/09/2024 Refill [facility] [address] [place] [address] Lucy Larkin MD 09/08/2024 Telephone [facility] [address], [place] [phone] Chloe Hester MA chart prep 08/29/2024 Patient Outreach [facility] [address] [place] [address] Lucy Larkin MD Pre-visit Planning (Pre-visit planning - LVM ) 08/09/2024 Refill [facility] [address] [place] [address] Leena Auguste MD Vaginal itching 06/15/2024 Telephone [facility] [address] [place] [address] Anand Ariza MD No Show 06/14/2024 Telephone [facility] [address] [place] [address] Lucy Larkin MD Chart Prep from Last 3 Months Immunizations Name Administration Dates Next Due DTaP 01/27/2008, 9,06/14/1996,09/10,1995,1995 HPV, Quadrivalent 10/30/2008,02/29/2008,01/27/20 08 Hep A, ped/adol, 2 dose 08/26/2010,08/29/2009 Hep B, Adolescent or Pediatric 1995,1994,1995 Hib ([facility]) 06/14/1996, 6,1995,05/16 IPV 03/18/1999, 6,1995,05/06 Influenza injectable quadriv alent IIV4 with preservative 02/13/2015 Influenza injectable quadriv alent preservative free 02/18/2021,02/28/2019,03/17/2017,03/24 Influenza, IIV3, injectable 04/19/2014, 1 Influenza, Split (incl. benton fied surface antigen) 02/16/2013,02/23/2012 MMR 03/18/1999,10/10/1996 Meningococcal MCV4P ACYW-135 12/17/2017,01/20/20 08 Pfizer Covid-19 Vaccine 12+ 09/09/2024 Pfizer Covid-19 Vaccine 12+ Bivalent 01/21/2023 Pneumococcal Conjugate PCV 20 09/09/2024 Pneumococcal Polysaccharide PPSV23 05/26/2016 TD (adult), 2 Lf tetanus tox oid, preservative free, adsorbed 12/06/2019 Tdap 12/06/2019, 7,02/19/2016,02/22 Varicella 07/09/2009,01/27/2008 Family History Medical History Relation Name Comments Diabetes type II Maternal Grandmother Relation Name Status Comments Maternal Grandmother Social History Tobacco Use Types Packs/Day Years Used Date Smoking Tobacco: Never Smokeless Tobacco: Never Tobacco Cessation:Counseling Given: Not Answered Depression Answer Date Recorded Patient Health Questionnaire-9 [...] Orientation Straight 03/31/2022 10 :20 AM EDT Last Filed Vital Signs Vital Sign Reading Time Taken Comments Blood Pressure 114/66 09/09/2024 1:50 PM EDT Pulse 69 09/09/2024 1:50 PM EDT Temperature 36.8 ??C (98.2 ??F) 03/08/2024 9:20 AM ED T Respiratory Rate 16 09/09/2024 1:50 PM EDT Oxygen Saturation 99% 09/09/2024 1:50 PM EDT Inhaled Oxygen Concentration - - Weight 72.4 kg (159 lb 9.6 oz) 09/09/2024 1:50 P M EDT Height 157.5 cm (5' 2 ) 03/08/2024 9:20 AM EDT Body Mass Index 29.19 03/08/2024 9:20 AM EDT Plan of Treatment Health Maintenance Due Date Last Done Comments Alcohol/Substance Use Screening 2007 Dental Oral Exam 06/11/2018 12/08/2017, 12/04/2014 Dental Prophylaxis 09/21/2018 03/22/2018, 06/08/2014 Dental X-Ray: Full Mouth 12/09/2020 12/08/2017 Dental X-Ray: Bitewings 11/14/2022 11/14/19 22, 12/08/2017, 12/04/2014 Pap Smear 08/01/2023 07/31/2020, 07/30/2020 SDOH Screening 04/15/2024 04/15/2023 Depression Screening 10/05/2024 10/06/2023, 10/06/19 24 Influenza Vaccine (#1) 2024 , 02/28/2019, 03/17/2017, Additional history exists Postponed from 01/31/2024 (Patient Refused) Family Planning (PISQ) 03/08/2025 03/08/2024 Tobacco Screening 09/09/2025 09/09/2024 Lipid Panel 12/15/2028 12/16/2023, 10/06/2023 DTaP/Tdap/Td Vaccines (12 - Td or Tdap) 12/05/2029 12/06/2019, 12/06/2019, 05/28/2017, Additional history exists Zoster Vaccines (1 of 2) 2045 RSV Patients and Patients Aged 60 years or older (1 - 1-dose 75+ series) 2070 Hepatitis B Vaccines Completed 1995, 1995, 1995 HIB Vaccines Completed 06/14/1996, 08/30, 1995, Additional history exists IPV Vaccines Completed 03/18/1999, 08/30, 1995, Additional history exists HPV Vaccines Completed 10/30/2008, 02/01, 01/27/2008 Hepatitis A Vaccines Completed 08/26/2010, 08/30/19 10 Meningococcal Vaccine Aged Out 12/17/2017, 008 No longer eligible based on patient's age to complete this topic HIV Screening Completed 10/06/2023, 07/03, 01/22/2023, Additional history exists Hepatitis C Screening Completed 10/06/2023, 022 COVID-19 Vaccine Completed 09/09/2024, , 03/08/2021, Additional history exists Pneumococcal Vaccine: Pediatrics (0 to 5 Years) and At-Risk Patients (6 to 49) Years) Completed 09/09/2024, 05/26/2016 RSV under 20 months Aged Out No longe r eligible based on patient's age to complete this topic Rotavirus Vaccines Aged Out No longer eligible based on patient's age to complete this topic Procedures Procedure Name Priority Date/Time Associated Diagnosis Comments LIPID PANEL, STANDARD Routine 12/16/2023 3:13 PM EDT HEPATITIS C AB W/REFL TO HCV RNA, QN, PCR Routine 10/06/2023 3:31 PM EDT Routine screening for STI (sexually transmitted infection) HIV 1/2 ANTIGEN/ANTIBODY, FOURTH GENERATION W/RFL Routine 10/06/2023 3:31 PM EDT Routine screening for STI (sexually transmitted infection) BITEWING - SINGLE RADIOGRAPHIC IMAGE Routine 11/13/2021 12:00 AM EDT HM PAP/HPV Routine 07/31/2020 PROPHYLAXIS - ADULT Routine 03/22/2018 1 2:00 AM EDT INTRAORAL - COMPLETE SERIES OF RADIOGRAPHIC IMAGES Routine 12/08/2017 12:00 AM EDT PERIODIC ORAL EVALUATION - ESTABLISHED PATIENT Routine 12/08/2017 12:00 AM EDT from Last 3 Months or Most Recently Relevant to Health Maintenance Results * (ABNORMAL) Lipid Panel, Standard (12/16/2023 3:13 PM EDT) Triglycerides 51 <150 mg/dL [facility] Comment:Desirable Triglyceri de: less than 150 mg/dLBorderline High Triglyceride 150-199 mg/dLHigh Triglyceride: 200-499 mg/dLVery High Triglyceride: greater than or equal to 5OO mg/dL Cholesterol 186 <200 mg/dL [facility] Comment:Desirable Cholestero l: less than 200 mg/dLBorderline High Cholesterol: 200-239 mg/dLHigh Cholesterol: greater than 239 mg/dL LDL Cholesterol Calculated 113(H) <100 mg/dL [facility] Comment:Desirable LDL: less than 100 mg/dLNear Optimal/Above Optimal LDL: 110- 129 mg/dLBorderline High LDL: 130-159 mg/dLHigh LDL: 160-189 mg/dLVery High LDL: greater than or equal to 190 mg/dL HDL Cholesterol 63 >40 mg/dL [facility] Comment:Desirable HDL: great er than 40 mg/dL Note: This HDL assay may give artificially low results in patients with liver disease. 12/16/2023 3:13 PM EDT 12/16/2023 3:13 PM EDT us Generic External Data Provider LAB BLOOD ORDERAB LES Final Result Performing Organization Address [facility] [employer] Phone Number [facility] [address] [place] [phone] * Hepatitis C Antibody with Reflex to HCV, RNA, Quantitative, Real-Time PCR (10/06/2023 3:31 PM EDT) Pathologist [facility] Hepatitis C Antibody Nonreactive Nonreactive [facility] Comment:Antibodies to HCV no t detected; does not exclude early acuteHCV infection. Blood Venous blood specimen / Unknown 10/06/2023 3:31 PM EDT 10/06/2023 4:11 PM EDT us Lucy Larkin MD LAB BLOOD ORDERABLES Final Resul t Performing Organization Address [facility] [employer] Phone Number [facility] [address] [place] [phone] * HIV-1/2 Antigen and Antibodies, Fourth Generation, with Reflexes (10/06/2023 3:31 PM EDT) Pathologist [facility] HIV AB/AG Nonreactive Nonreactive [facility] Comment:HIV-1 p24 Ag and/or HIV-1/HIV-2 Ab not detected.A test result that is nonreactive does not exclude thepossibility of exposure to or infection with HIV-1 and/orHIV-2. Nonreactive results in this assay for individualswith prior exposure to HIV-1 and/or HIV-2 may be due toantigen and antibody levels that are below the limit ofdetection of this assay.The [facility] HIV Ag/Ab Combo assay result andsupplemental assay results should be interpreted inconjunction with the patient's clinical presentation,history and other laboratory results. If the results areinconsistent with clinical evidence, additional testing issuggested to confirm the result. Blood Venous blood specimen / Unknown 10/06/2023 3:31 PM EDT 10/06/2023 4:11 PM EDT Lucy Larkin MD LAB BLOOD ORDERABLES Final Resul t [facility] [address] [place] [phone] * Pap Smear (07/31/2020) Pathologist On license of [facility] Pap smear Performed [place] Provider HEALTH MAINTENANCE Final Result from Last 3 Months or Most Recently Relevant to Health Maintenance Insurance [facility] Member Subscriber Plan / Payer (Ef fective 2018-Present) Name:Fredrick Maldonado Relation to Subscriber:Self Name:Fredrick Maldonado Payer ID:Not on file Group ID:[id number] Type:Not on file Address: [address] [place], [place] DENTAL - [facility] * Guarantor: Fredrick Maldonado Account Type Relation to Patient Date of Phone Billing Address Personal/Family Self [place], [place] Care Teams Cable Machine Operator Relationship Specialty Start Date End Date Lucy Larkin MD [address] [place] [address] PCP - General Family Medicine 11/17/13
--- OUTSIDE RECORDS SUMMARY | 2024-09-09 15:00 | XMS_ITS | Encounter Summary ---
Author Organization [employer] Address [address] [facility] 7 [place] [address] Care Team Providers Care Band Singer Name Role Phone Lucy Larkin MD Primary Care Provider [phone] Encounter Details Date Type Department Care Team (Latest Contact Info) Description 09/09/2024 Travel Social History Tobacco Use Types Packs/Day Years [...] documented as of this encounter Care Teams Band Singer Relationship Specialty Start Date End Date Lucy Larkin MD [address] [place] [address] PCP - General Family Medicine 11/17/13 documented as of this encounter
--- OUTSIDE RECORDS SUMMARY | 2024-09-09 15:00 | XMS_ITS | Encounter Summary ---
Author Organization [employer] Address [address] [place] [address] 7 [place] [address] Care Team Providers Care Geochemical Manager Name Role Phone Lucy Larkin MD Primary Care Provider [phone] Encounter Details Date Type Department Care Team ([facility] st Contact Info) Description 06/10/2022 Abstract [facility] [address] [place] [address] Melina Saunders DDS [address] [place] [address] Social History Tobacco Use Types Packs/Day Years [...] on filedocumented in this encounter Care Teams Geochemical Manager Relationship Specialty Start Date End Date Lucy Larkin MD [address] [place] [address] PCP - General Family Medicine 11/17/13 documented as of this encounter
--- OUTSIDE RECORDS SUMMARY | 2024-09-09 15:00 | XMS_ITS | Encounter Summary ---
Author Organization [employer] Address [address] [place] [address] [facility] [place] [address] Care Team Providers Care Operations Staff Specialist Security Name Role Phone Lucy Larkin MD Primary Care Provider [phone] Reason for Referral * Consultation (Routine) - Authorized Specialty Diagnoses / Procedures Referred By Maranda schumacher Referred To Contact Behavioral Health Diagnoses Chronic depression Jenny Metzger ANP [address] [place] [address] Phone: tel: fax: Referral ID Status Reason Start Date Expiration Date Visits Requested Visits Authorized [id number] Authorized Specialty Services Required 09/09/2024 09/09/2025 1 1 Reason for Visit * Reason Comments Annual Exam Encounter Details Date Type Department Care Team (Late st Contact Info) Description 09/09/2024 1:45 PM EDT Office Visit [facility] [address] [place] [address] Jenny Metzger ANP [address] [place] [address] Mild intermittent asthma without complication (Primary Dx); Chronic depression; Status post bariatric surgery; Screening for cervical cancer; Healthcare maintenance; Preop examination Social History Tobacco Use Types Packs/Day Years [...] AM EDT documented as of this encounter Last Filed Vital Signs Vital Sign Reading Time Taken Comments Blood Pressure 114/66 09/09/2024 1:50 PM EDT Pulse 69 09/09/2024 1:50 PM EDT Temperature - - Respiratory Rate 16 09/09/2024 1:50 PM EDT Oxygen Saturation 99% 09/09/2024 1:50 PM EDT Inhaled Oxygen Concentration - - Weight 72.4 kg (159 lb 9.6 oz) 09/09/2024 1:50 P M EDT Height - - Body Mass Index 29.19 03/08/2024 9:20 AM EDT documented in this encounter Plan of Treatment Scheduled Orders Name Type Priority Associated Diagnoses Orde r Schedule CBC auto differential Lab Routine Healthcare maintenance Expected: 09/09/2024 (Approximate), Expires: 09/09/2025 hCG, Total, Quantitative Lab Routine Healthcare maintenance Expected: 09/09/2024 (Approximate), Expires: 09/09/2025 Prothrombin Time-INR Lab Routine Healthcare maintenance Expected: 09/09/2024, Expires: 09/09/2025 Comprehensive Metabolic Panel Lab Routine Healthcare maintenance Expected: 09/09/2024 (Approximate), Expires: 09/09/2025 ECG 12 lead ECG Routine Preop examination Ordered: 09/09/2024 Partial Thromboplastin Time, Activated (APTT) Lab Routine Preop examination Expected: 09/09/2024, Expires: 09/09/2025 Scheduled Referrals Name Type Priority Associated Diagnoses Order Schedule Referral to Behavioral Health Outpatient Referral Routine Chronic depression Expected: 09/09/2024 (Approximate), Expires: 09/09/2025 documented as of this encounter Visit Diagnoses Diagnosis Mild intermittent asthma without complication- Primary Chronic depression Status post bariatric surgery Bariatric surgery status Screening for cervical cancer Screening for malignant neoplasm of the cervix Healthcare maintenance Preop examination Unspecified pre-operative examination documented in this encounter Additional Health Concerns Assessment Noted Time PHQ-9 Depression Total Score: 0 10/06/19 24 3:03 PM EDT documented as of this encounter Care Teams Operations Staff Specialist Security Relationship Specialty Start Date End Date Lucy Larkin MD [address] [place] [address] PCP - General Family Medicine 11/17/13 documented as of this encounter
--- OUTSIDE RECORDS SUMMARY | 2024-09-09 15:00 | XMS_ITS | Encounter Summary ---
Author Organization [employer] Address [address] [facility] 7 [place] [address] Care Team Providers Care Hoop Riveting Machine Operator Helper Name Role Phone Lucy Larkin MD Primary Care Provider [phone] Reason for Visit * Reason Onset Date Comments Pre-Op 08/17/2023 Encounter Details Date Type Department Care Team ([facility] st Contact Info) Description 08/17/2023 Telephone [facility] [address] [place] [address] Lucy Larkin MD [address] [place] [address] Pre-Op Social History Tobacco Use Types Packs/Day Years [...] encounter Miscellaneous Notes * Telephone Encounter - Sabina Rao RN - 08/19/2023 5:46 PM EDT TC placed to patient regarding message below. Patient confirmed that she is having the surgery below on 10/20/23 in [place] and needs a pre-op appointment prior. She will also need a mammogram prior to this surgery. Pre-op scheduled for 10/06/[address] Larkin for 2:30pm. TC placed to surgeon's officeto review and confirm information below. Long wait on hold and then transferred to for surgical product sales consultant. LM that we are trying to confirm pre-op requirements for a shared patient and to please call us back. Routing message to PCP for review of request for mammogram and back to Reform Team Nurses to confirm pre-op details with surgeon's office. Date of Surgery: 10/19 Surgical procedure being done: breast lift Type of anesthesia: Local Lab needed: yes, CBC with differential, test, metabolic panel, PTT, mammogram EKG: yes Surgeon's name: Dr. Kendell Guerra Facility name[facility] Surgeon's office number: [phone] Surgeon's office fax number: [phone] Contact name (person you spoke with): patient Last office note from surgeon requested: none * Telephone Encounter - Kayla Hinkle - 08/17/2023 2:30 PM EDT Date of Surgery: 10/19 Surgical procedure being done: breast lift Type of anesthesia: Local Lab needed: yes, CBC with differential, test, metabolic panel, PTT, mammogram EKG: yes Surgeon's name: Dr. Kendell Guerra Facility name: [facility] Surgeon's office number: [phone] Surgeon's office fax number: [phone] Contact name (person you spoke with): patient Last office note from surgeon requested: none documented in this encounter Plan of Treatment Not on file documented as of this encounter Visit Diagnoses Not on filedocumented in this encounter Care Teams Hoop Riveting Machine Operator Helper Relationship Specialty Start Date End Date Lucy Larkin MD [address] [place] [phone] PCP - General Family Medicine 11/17/13 documented as of this encounter
[2024-09-09 16:02] LABS: MANUAL DIFF FLAG NO
[2024-09-09 16:11] LABS: Basophils Percent Auto 0.3 % (0-2); Eosinophils Absolute Auto 0.1 X10*3/uL (0.0-0.4); Eosinophils Percent Auto 1.4 % (0-4); Hemoglobin 12.5 g/dl (12.0-16.0); Imm Gran Abs Auto 0.03 X10*3/uL (0.00-0.03); Imm Gran Pct Auto 0.3 % (0.0-0.4); Lymphocytes Absolute Auto 1.6 X10*3/uL (1.2-4.9); Lymphocytes Percent Auto 17.1 % (20-40); Mean Corpuscular HGB Conc 34.7 g/dl (31.0-35.0); Mean Corpuscular Hemoglobin 31.4 pg (27.0-33.0); Mean Corpuscular Volume 90.5 fL (80.0-98.0); Mean Platelet Volume 10.4 fL (9.4-12.3); Monocytes Absolute Auto 0.5 X10*3/uL (0.1-1.2); Monocytes Percent Auto 5.4 % (2-11); Neutrophils Absolute Auto 6.9 x10*3/uL (2.0-8.3); Neutrophils Percent Auto 75.5 % (45-73); Platelet Count 267 X10*3/uL (160-400); Red Blood Count 3.98 X10*6/uL (4.20-5.50); Red Cell Distribution Width 11.6 % (11.0-16.0); White Blood Count 9.2 X10*3/uL (4.8-10.8)
[2024-09-09 16:15] LABS: INTERNATIONAL NORM RATIO 1.2 (0.9-1.1); Prothrombin Time 13.5 SEC (10.9-12.4)
[2024-09-09 16:18] LABS: Partial Thromboplastin Time 34.8 SEC (26.0-36.8)
[2024-09-09 16:34] LABS: Alanine Aminotransferase 17 U/L (0-31); Albumin Level 4.4 g/dL (3.5-5.0); Alkaline Phosphatase 76 U/L (39-117); Anion Gap 12 (12-20); Aspartate Amino Transferase 21 U/L (5-31); Bilirubin Total 0.4 mg/dL (0.0-1.0); Blood Urea Nitrogen 15 mg/dL (9-16); Calcium 9.5 mg/dL (8.4-10.2); Carbon Dioxide 24 mmol/L (22-29); Chloride 107 mmol/L (96-108); Estimated Glomerular Filt Rate > 60; Glucose Random 83 mg/dL (60-115); HCG Quantitative < 2 mIU/mL; Potassium 3.5 mmol/L (3.3-5.1); Sodium 139 mmol/L (135-145); Total Protein 7.6 g/dL (6.5-8.0)
[2024-09-12 11:59] LABS: TS Negative Control Passed; TS Panel A 10; TS Panel B 5; TS Positive Control Passed; TSpotTB Positive (Negative)
== END 2024-09-09 14:48 | disposition home or self-care (01) ==
LOC: HO.HHCL 14:47
PROVIDERS: Family Medicine; Visit Provider Nurse Practitioner Primary Care
DX: Z01.818 Encounter for other preprocedural examination (principal); Z11.1 Encounter for screening for respiratory tuberculosis
CPT/HCPCS: 36415; 80053; 84702; 85025; 85610; 85730; 86481

== ENCOUNTER 2024-09-12 14:34 | Outpatient (REF) | payer OTHER, SELFPAY ==
--- NOTE | ~2024-09-12 | XR_ITS ---
EXAMINATION: XR CHEST 2 VIEWS HISTORY: positive T-spot COMPARISON: Comparison is made with the prior examination dated 09/28/2019. FINDINGS: PA and lateral views of the chest are submitted. The lungs are expanded and clear. There is no pleural effusion, pneumothorax, or pulmonary vascular congestion. The heart is normal in size. There is scoliosis of the spine. There are surgical clips at the GE junction. XR/XR chest 2V IMPRESSION: No acute cardiopulmonary abnormality. Electronically signed by: Chris Mayberry MD 09/12/2024 03:17 PM EDT
--- OUTSIDE RECORDS SUMMARY | 2024-09-12 16:58 | XMS_ITS | Encounter Summary ---
Author Organization [employer] Address [address] [facility] 7 [place] [address] Care Team Providers Care Supervisor Cold Rolling Name Role Phone Lucy Larkin MD Primary Care Provider [phone] Encounter Details Date Type Department Care Team ([facility] st Contact Info) Description 09/12/2024 Orders Only [facility] MEDICINE [address] [place] [address] Rain Pennington, ANP [address] [place] [address] Positive TB test (Primary Dx) Social History Tobacco Use Types Packs/Day Years [...] AM EDT documented as of this encounter Progress Notes * VOLODYMYR Mitchell - 09/12/2024 12:32 PM EDT Please let pt know her t-spot test was abnormal - therefore needs a chest XR to r/o TB. Have ordered, please direct to get judy so we can send to her breast surgeon if needed. documented in this encounter Plan of Treatment Not on file documented as of this encounter Procedures Procedure Name Priority Date/Time Associated Diagnosis Comments XR CHEST 2 VIEWS Routine 09/12/2024 2:35 PM EDT Positive TB test documented in this encounter Results * XR Chest 2 Views (09/12/2024 2:35 PM EDT) Anatomical Region Laterality Modality Chest Radiographic Jami ging 09/12/2024 2:35 PM EDT Narrative 09/12/2024 3:20 PM EDT ?[facility] ?[address] ?[place] [address] ?XRay Report ? Signed ? Patient: Fredrick Caldwell ?M ?? R#: [id number] ? : 1995 ?Acct:[id number] ? Age/Sex: 29 / F ?ADM Date: 04/14/25 ? Loc: HO.HHCX ? Attending Dr: Rain Pennington NP ? Ordering Physician: RAIN PENNINGTON NP ?? Date of Service: 09/12/24 ?? Procedure(s): XR chest 2V ?? Accession Number(s): [id number] ? cc: RAIN PENNINGTON NP ? EXAMINATION: ??XR CHEST 2 VIEWS ? HISTORY: positive T-spot ? COMPARISON: Comparison is made with the prior examination dated ?? 09/28/2019. ? FINDINGS: ??PA and lateral views of the chest are submitted. The lungs ?? are expanded and clear. ??There is no pleural effusion, pneumothorax, or ?? pulmonary vascular congestion. ??The heart is normal in size. ??There is ?? scoliosis of the spine. There are surgical clips at the GE junction. ? XR/XR chest 2V ?? IMPRESSION: ?? No acute cardiopulmonary abnormality. ? Electronically signed by: ??Chris Mayberry MD ??09/12/2024 03:17 PM EDT ? Dictated By: ?Chris Mayberry MD ? Signed By: ?<Electronically signed by Chris Mayberry MD in OV> ?09/12/24 1517 ? DD/ 1435 ? TD/TT: 09/12/24 1500 ? Sales Promoter: ? Procedure Note Ricardo Terry - 09/12/[address] [address] XRay Report Signed Patient: Anne Marie Caldwell R#: [id number] : 1995Acct:[id number] Age/Sex: 29 FADM Date: 09/12/24 Loc: HO.HHCX Attending Dr: Rain Pennington NP Ordering Physician: RAIN PENNINGTON NP Date of Service: 09/12/24 Procedure(s): XR chest 2V Accession Number(s): [id number] cc: RAIN PENNINGTON NP EXAMINATION: XR CHEST 2 VIEWS HISTORY: positive T-spot COMPARISON: Comparison is made with the prior examination dated 09/28/2019. FINDINGS: PA and lateral views of the chest are submitted. The lungs are expanded and clear. There is no pleural effusion, pneumothorax, or pulmonary vascular congestion. The heart is normal in size. There is scoliosis of the spine. There are surgical clips at the GE junction. XR/XR chest 2V IMPRESSION: No acute cardiopulmonary abnormality. Electronically signed by: Chris Mayberry MD 09/12/2024 03:17 PM EDT RP Dictated By: Chris Mayberry MD Signed By: <Electronically signed by Chris Mayberry MD in OV> 09/12/24 1517 DD/ 1435 TD/TT: 09/12/24 1500 Sales Promoter: Rain Pennington ANP IMG XR PROCEDURES Edited Result - Final documented in this encounter Visit Diagnoses Diagnosis Positive TB test- Primary documented in this encounter Additional Health Concerns Assessment Noted Time PHQ-9 Depression Total Score: 0 10/06/19 24 3:03 PM EDT documented as of this encounter Care Teams Supervisor Cold Rolling Relationship Specialty Start Date End Date Lucy Larkin MD [address] [place] [address] PCP - General Family Medicine 11/17/13 documented as of this encounter
--- OUTSIDE RECORDS SUMMARY | 2024-09-12 16:58 | XMS_ITS | Encounter Summary ---
Author Organization [employer] Address 75 [facility] 7 [place] [address] Care Team Providers Care Image Processing Engineer Name Role Phone Lucy Larkin MD Primary Care Provider [phone] Reason for Visit * Reason Onset Date Comments Positive TB TEST 09/12/2024 Encounter Details Date Type Department Care Team ([facility] st Contact Info) Description 09/12/2024 Telephone [facility] MEDICINE [address] [place] [address] Deanna Ch RN Positive TB TEST Social History Tobacco Use Types Packs/Day Years [...] encounter Miscellaneous Notes * Telephone Encounter - Deanna Ch RN - 09/12/2024 1:33 PM EDT TC placed to pt to inform of positive TB blood test that was resulted today. The result was sent tocovering provider for Dr. Larkin who sent the message below regarding the plan of care. Pt was advised that the next step is to have a confirmatory XR done and depending on those results the pt willbe referred to the TB clinic or have treatment for active TB. Pt was agreeable to this information and states that she will have the XR done by tomorrow 09/13 ----- Message from Nurse Mimi Rivera sent at 09/12/2024 1:24 PM EDT ----- ----- Message ----- From: Bibi Negrete MD Sent: 09/12/2024 1:23 PM EDT To: [facility] Red Team Nurses Please let patient know that she needs a CXR to rule out active TB, and if so will get treated for TB. If CXR is negative, she will be referred to TB clinic for further testing/potential treatment oflatent TB. Thank you! Dr Negrete, covering for Dr Larkin documented in this encounter Plan of Treatment Not on file documented as of this encounter Visit Diagnoses Not on filedocumented in this encounter Additional Health Concerns Assessment Noted Time PHQ-9 Depression Total Score: 0 10/06/19 24 3:03 PM EDT documented as of this encounter Care Teams Image Processing Engineer Relationship Specialty Start Date End Date Lucy Larkin MD [address] [place] [address] PCP - General Family Medicine 11/17/13 documented as of this encounter
--- OUTSIDE RECORDS SUMMARY | 2024-09-12 16:58 | XMS_ITS | Clinical Summary ---
Author Organization [employer] Address 75 [facility] 7 [place] [address] Care Team Providers Care Exhibition Specialist Name Role Phone Lucy Larkin MD Primary Care Provider [phone] Allergies No known active allergies Medications * This document contains information received from the source organization and may not represent a complete record from that organization. acetaminophen (Tylenol) 500 MG tablet take 1 [...] mouth Once per day. 90 tablet 3 024 Active ascorbic acid (Vitamin C) 500 MG tablet Take 1 tablet (500 mg) by mouth Once per day. 90 tablet 3 024 2024 Active ferrous sulfate (Fe Tabs) 325 (65 Fe) MG EC tablet Take 1 tablet (325 mg) by mouth with breakfast. Do not crush, chew, or split. 90 tablet 3 024 2024 Active calcium citrate 315 mg + D2 6.25 mcg tablet Take 1 tablet by mouth 2 times daily. 180 tablet 3 Active Acne Medication 5 5 % gel APPLY TO THE AFFECTED AREA(S) TWICE DAILY 60 g 1 024 Active valACYclovir (Valtrex) 500 MG tabletIndicatio [...] done. Abscess of labia 03/30/2018 10/07/2023 Encounters * This document contains information received from the source organization and may not represent a complete record from that organization. Date Type Department Care Team Description 09/12/2024 Telephone [facility] MED[facility] [address] [place] [phone] Deanna Ch RN Positive TB TEST 09/12/2024 Orders Only [address] [address] Rain Pennington ANP Positive TB test (Primary Dx) 09/09/2024 1:45 PM EDT Office Visit [address] [address] Rain Pennington ANP Mild intermittent asthma without complication (Primary Dx); Chronic depression; Status post bariatric surgery; Screening for cervical cancer; Healthcare maintenance; Preop examination 09/09/2024 Travel 09/09/2024 Telephone [facility] [address] [place] [phone] Lucy Larkin MD Med Refill 09/08/2024 Telephone [facility] [address] [place] [phone] Chloe Hester MA chart prep 08/29/2024 Patient Outreach [facility] [address] [place] [phone] Lucy Larkin MD Pre-visit Planning (Pre-visit planning - LVM ) 08/09/2024 Refill [facility] [address] [place], [place] [phone] Leena Auguste MD Vaginal itching 06/15/[address] [facility] [address] [place], [place] [phone] Anand Ariza MD No Show 06/14/[address] [facility] [address] [place], [place] [phone] Lucy Larkin MD Chart Prep from Last 3 Months Immunizations Name Administration Dates Next Due DTaP 01/27/2008, 9,06/14/1996,09/10,1995,1995 HPV, Quadrivalent 10/30/2008,02/29/2008,01/27/20 08 Hep A, ped/adol, 2 dose 08/26/2010,08/29/2009 Hep B, Adolescent or Pediatric 1995,1994,1995 Hib (HbO) 06/14/1996, 6,1995,05/16 IPV 03/18/1999, 6,1995,05/06 Influenza injectable [...] Family Planning (PISQ) 03/08/2025 03/08/2024 Tobacco Screening 09/12/2025 09/12/2024 Lipid Panel 12/15/2028 12/16/2023, 10/06/2023 DTaP/Tdap/Td Vaccines [...] 09/12/2024 2:35 PM EDT Positive TB test ECG 12-LEAD Routine 09/09/2024 4:48 PM EDT Preop examination APTT Routine 09/09/2024 2:49 PM EDT Preop examination COMPREHENSIVE METABOLIC PANEL Routine 09/09/2024 2:49 PM EDT Healthcare maintenance PROTHROMBIN TIME-INR Routine 09/09/2024 2:49 PM EDT Healthcare maintenance HCG, TOTAL, QN Routine 09/09/2024 2:49 PM EDT Healthcare maintenance CBC WITH AUTO DIFFERENTIAL Routine 09/09/2024 2:49 PM EDT Healthcare maintenance T-SPOT(R).TB Routine 09/09/2024 2:49 PM EDT Screening for tuberculosis LIPID PANEL, STANDARD Routine 12/16/2023 3:13 PM [...] Recently Relevant to Health Maintenance Results * XR Chest 2 Views (09/12/2024 2:35 PM EDT) Anatomical Region Laterality Modality Chest Radiographic Jami ging 09/12/2024 2:35 PM EDT Narrative 09/12/2024 3:20 PM EDT ?[facility] ?[address] ?[place] [address] ?XRay Report ? Signed ? Patient: Pollo Caldwell ?M ?? R#: [id number] ? : 1995 ?Acct:[id number] ? Age/Sex: 29 / F ?ADM Date: 04/14/25 ? Loc: HO.HHCX ? Attending Dr: Rain Pennington NP ? Ordering Physician: RAIN PENNINGTON NP ?? Date of Service: 09/12/24 ?? Procedure(s): XR chest 2V ?? Accession Number(s): [id number] ? cc: RAIN PENNINGTON NP ? EXAMINATION: [...] DD/ 1435 ? TD/TT: 09/12/24 1500 ? Tapeman: ? Procedure Note Ricardo Terry - 09/12/[address] [address] XRay Report Signed Patient: Anne Marie Caldwell R#: [id number] : 1995Acct:[id number] Age/Sex: 29 FADM Date: 09/12/24 Loc: HO.HHCX Attending Dr: Rain Pennington NP Ordering Physician: RAIN PENNINGTON NP Date of Service: 09/12/24 Procedure(s): XR chest 2V Accession Number(s): [id number] cc: RAIN PENNINGTON NP EXAMINATION: XR CHEST [...] Chris Mayberry MD 09/12/2024 03:17 PM EDT Dictated By: Chris Mayberry MD Signed By: <Electronically signed by Chris Mayberry MD in OV> 09/12/24 1517 DD/ 1435 TD/TT: 09/12/24 1500 Tapeman: Rain HELM IMG XR PROCEDURES Edited Result - Final * ECG 12 lead (09/09/2024 4:48 PM EDT) aRin Chu ANP - 09/09/2024 4:48 PM EDT HR 69, sinus, normal axis. QT/Qtc 368/383. no acute ischemic ST-T change, no hypertrophy us Rain HELM ECG ORDERABLES Final Result * (ABNORMAL) T-SPOT??.TB (09/09/2024 2:49 PM EDT) T Spot TB Positive( A) Negative [facility] Comment: Diagnosing or excluding tuberculosis (TB) disease andassessing the probability of latent TB infection (LTBI)requires a combination of epidemiological, historical,medical and diagnostic findings that should be takeninto consideration when interpreting T-SPOT.TB testresults. A positive test result does not rule in activeTB disease caused by Mycobacterium tuberculosis(M. tuberculosis); active TB disease should beconfirmed by other tests such as sputum smear andculture, PCR, and chest radiography.Uncommonly, a positive T-SPOT.TB result may be due toinfection with other Mycobacterium species includingM. kansasii, M. szulgai, M. gordonae, or M. marinum.Alternative tests would be required if these infectionsare suspected.The T-SPOT.TB test is qualitative and results arereported as positive, borderline, or negative, giventhat the test controls perform as expected. In linewith the Centers for Disease Control and Prevention's2010 recommendation to report quantitative measurementsalongside the qualitative result, the laboratoryprovides spot counts for informational purposes only.The T-SPOT.TB test should not be interpreted as aquantitative test. TS PANEL A 10 [facility] TS PANEL B 5 [facility] Negative Control Passed [facility] Positive Control Passed [facility] Comment:For additional infor allison, please refer tohttp://education.EcoSwarm/faq/SJO204(This link is being provided for informational/educational purposes only.)THIS TEST WAS PERFORMED AT:[employer] [id number] [place] [phone] STARKEY MD,PHD 09/09/2024 2:49 PM EDT 09/09/2024 3:57 PM EDT us Lucy Larkin MD LAB BLOOD ORDERABLES Final Resul t [facility] [address] [place] [phone] [phone] * (ABNORMAL) CBC auto differential (09/09/2024 2:49 PM EDT) White Blood Count 9.2 4.8 - 10.8 X10*3/uL [facility] Red Blood Count 3.98(L) 4.20 - 5.50 X10*6/uL [facility] Hemoglobin 12.5 12.0 - 16.0 g/dl [facility] Hematocrit 36.0(L) 37.0 - 47.0 % [facility] Mean Corpuscular Volume 90.5 80.0 - 98.0 fL [facility] Mean Corpuscular Hemoglobin 31.4 27.0 - 33.0 pg [facility] Mean Corpuscular HGB Conc 34.7 31.0 - 35.0 g/dl [facility] Red Cell Distribution Width 11.6 11.0 - 16.0 % [facility] Platelet Count 267 160 - 400 X10*3/uL [facility] Mean Platelet Volume 10.4 9.4 - 12.3 fL [facility] Neutrophils Percent Auto 75.5(H) 45 - 73 % [facility] Imm Gran Pct Auto 0.3 0.0 - 0.4 % [facility] Lymphocytes Percent Auto 17.1(L) 20 - 40 % [facility] Monocytes Percent Auto 5.4 2 - 11 % [facility] Eosinophils Percent Auto 1.4 0 - 4 % [facility] Basophils Percent Auto 0.3 0 - 2 % [facility] NRBC Pct Auto 0.0 0.0 - 0.2 /100WBC [facility] Neutrophils Absolute Auto 6.9 2.0 - 8.3 x10*3/uL [facility] Imm Gran Abs Auto 0.03 0.00 - 0.03 X10*3/uL [facility] Lymphocytes Absolute Auto 1.6 1.2 - 4.9 X10*3/uL [facility] Monocytes Absolute Auto 0.5 0.1 - 1.2 X10*3/uL [facility] Eosinophils Absolute Auto 0.1 0.0 - 0.4 X10*3/uL [facility] Basophils Absolute Auto 0.0 0.0 - 0.2 X10*3/uL [facility] NRBC Abs Auto 0.000 0.0 - 0.012 X10*3/uL [facility] Blood Venous blood specimen / Unknown 09/09/2024 2:49 PM EDT 09/09/2024 3:57 PM EDT Rain Pennington [facility] LAB BLOOD ORDERABLES Final Resul t [facility] [address] [place] [phone] * Partial Thromboplastin Time, Activated (APTT) (09/09/2024 2:49 PM EDT) Partial Thromboplastin Time 34.8 26.0 - 36.8 SEC [facility] Comment:For information rega rding the monitoring of direct thrombininhibitors, please refer to Pharmacy. Blood Venous blood specimen / Unknown 09/09/2024 2:49 PM EDT 09/09/2024 3:57 PM EDT Rain Pennington ANP LAB BLOOD ORDERABLES Final Resul t Performing Organization Address City/[facility]/ZIP Co de Phone Number [facility] [address] [place] [phone] * (ABNORMAL) Prothrombin Time-INR (09/09/2024 2:49 PM EDT) Prothrombin Time 13.5(H) 10.9 - 12.4 SEC [facility] INTERNATIONAL NORM RATIO 1.2(H) 0.9 - 1.1 [facility] Comment:INTERNATIONAL NORMAL IZED RATIO (INR) REFERENCE RANGES Reference RangeFor patients not on anticoagulant therapy: 0.9 - 1.1INR ranges for oral anticoagulanttherapy:For prevention and treatment of venous thrombosis and pulmonary embolism: 2.0 - 3.0For acute myocardial infarction with aspirin therapy: 2.0 - 3.0For acute myocardial infarction without aspirin therapy: 3.0 - 4.0For patients with mechanical prosthetic heart valves: 2.5 - 3.5 Blood Venous blood specimen / Unknown 09/09/2024 2:49 PM EDT 09/09/2024 3:57 PM EDT Rain Pennington [facility] LAB BLOOD ORDERABLES Final Resul t Performing Organization Address [facility] Co de Phone Number [facility] [address] [place] [phone] * hCG, Total, Quantitative (09/09/2024 2:49 PM EDT) HCG Quantitative <2 mIU/mL [facility] Comment:Weeks post LMP Appro ximate hCG(Last Menstrual Period) Range (mIU/ml)3 - 4 weeks 9 - 1304 - 5 weeks 75 - 2,6005 - 6 weeks 850 - 20,8006 - 7 weeks 4000 - 100,2007 - 12 weeks 11,500 - 289,04178 - 16 weeks 18,300 - 137,87696 - 29 weeks (2nd trimester) 1,400 - 53,83273 - 41 weeks (3rd trimester) 940 - 60,000The Pedraza B- hCG assay is used for the early detection ofpregnancy; it cannot be used to diagnose any conditionunrelated to . If a B-hCG level is not supportedby the clinical evidence, results should be confirmed by analternative method (qualitative urine hCG, for example). Blood Venous blood specimen / Unknown 09/09/2024 2:49 PM EDT 09/09/2024 3:57 PM EDT [facility] LAB BLOOD ORDERABLES Final Resul t [facility] [address] [place] [phone] * Comprehensive Metabolic Panel (09/09/2024 2:49 PM EDT) Sodium 139 135 - 145 mmol/L [facility] Potassium 3.5 3.3 - 5.1 mmol/L [facility] Chloride 107 96 - 108 mmol/L [facility] Carbon Dioxide 24 22 - 29 mmol/L [facility] Anion Gap 12 12 - 20 [facility] Urea Nitrogen (BUN) 15 9 - 16 mg/dL [facility] Creatinine, Serum 0.61 0.5 - 1.4 mg/dL [facility] Estimated Glomerular Filt Rate >60 [facility] Comment:Chronic Kidney Disea se: Estimated GFR < 60 mL/min/[id number] Kidney Disease: Estimated GFR < 15 mL/min/1.73m2 Glucose 83 60 - 115 mg/dL [facility] Calcium 9.5 8.4 - 10.2 mg/dL [facility] Bilirubin, Total 0.4 0.0 - 1.0 mg/dL [facility] Aspartate Amino Transferase 21 5 - 31 U/L [facility] Alanine Aminotransferase 17 0 - 31 U/L [facility] Total Protein 7.6 6.5 - 8.0 g/dL [facility] Albumin Level 4.4 3.5 - 5.0 g/dL [facility] Alkaline Phosphatase 76 39 - 117 U/L [facility] Blood Venous blood specimen / Unknown 09/09/2024 2:49 PM EDT 09/09/2024 3:57 PM EDT us Rain Pennington [facility] LAB BLOOD ORDERABLES Final Resul t Performing Organization Address City/[facility]/ZIP Co de Phone Number [facility] [address] [place] [phone] * (ABNORMAL) Lipid Panel, Standard (12/16/2023 3:13 PM EDT) Triglycerides 51 <150 mg/dL [facility] Comment:Desirable Triglyceri de: less than 150 mg/dLBorderline High Triglyceride 150-199 mg/dLHigh Triglyceride: 200-499 mg/dLVery High Triglyceride: greater than or equal to 5OO mg/dL Cholesterol 186 <200 mg/dL [facility] Comment:Desirable Cholestero l: less than 200 mg/dLBorderline High Cholesterol: 200-239 mg/dLHigh Cholesterol: greater than 239 mg/dL LDL Cholesterol Calculated 113(H) <100 mg/dL [facility] Comment:Desirable LDL: less than 100 mg/dLNear Optimal/Above Optimal LDL: 110- 129 mg/dLBorderline High LDL: 130-159 mg/dLHigh LDL: 160-189 mg/dLVery High LDL: greater than or equal to 190 mg/dL HDL Cholesterol 63 >40 mg/dL [facility] Comment:Desirable HDL: great er than 40 mg/dL Note: This HDL assay may give artificially low results in patients with liver disease. 12/16/2023 3:13 PM EDT 12/16/2023 3:13 PM EDT Generic External Data Provider LAB BLOOD ORDERAB LES Final Result Performing Organization Address City/[facility]/ZIP Co de Phone Number [facility] [address] [place] [phone] [phone] * Hepatitis C Antibody with Reflex to HCV, RNA, Quantitative, Real-Time PCR (10/06/2023 3:31 PM EDT) Pathologist [facility] Hepatitis C Antibody Nonreactive Nonreactive [facility] Comment:Antibodies to HCV no t detected; does not exclude early acuteHCV infection. Blood Venous blood specimen / Unknown 10/06/2023 3:31 PM EDT 10/06/2023 4:11 PM EDT Lucy Larkin MD LAB BLOOD ORDERABLES Final Resul t [facility] [address] [place] [phone] * HIV-1/2 Antigen and Antibodies, Fourth Generation, with Reflexes (10/06/2023 3:31 PM EDT) [facility] HIV AB/AG Nonreactive Nonreactive [facility] Comment:HIV-1 p24 Ag and/or HIV-1/HIV-2 Ab not detected.A test result that is nonreactive does not exclude thepossibility of exposure to or infection with HIV-1 and/orHIV-2. Nonreactive results in this assay for individualswith prior exposure to HIV-1 and/or HIV-2 may be due toantigen and antibody levels that are below the limit ofdetection of this assay.The [employer] HIV Ag/Ab Combo assay result andsupplemental assay results should be interpreted inconjunction with the patient's clinical presentation,history and other laboratory results. If the results areinconsistent with clinical evidence, additional testing issuggested to confirm the result. Blood Venous blood specimen / Unknown 10/06/2023 3:31 PM EDT 10/06/2023 4:11 PM EDT Lucy Larkin MD LAB BLOOD ORDERABLES Final Resul t [facility] [address] [place] [phone] [phone] * Hm Pap Smear (07/31/2020) Pathologist [facility] HM Pap smear Performed us Everette Weiss MD HEALTH MAINTENANCE Final Result from Last 3 Months or Most Recently Relevant to Health Maintenance Insurance [place] [facility] Member Subscriber Plan / Payer ( fective 2018-Present) Name:Pollo Maldonado Relation to Subscriber:Self Name:MaldonadoPollo Payer ID:Not on file Group ID:[id number] Type:Not on file Address: [address] STANDARD [place], [place] [facility] - [facility] * Guarantor: Pollo Maldonado Account Type Relation to Patient Date of Phone Billing Address Personal/Family Self [place], [place] Care Teams Exhibition Specialist Relationship Specialty Start Date End Date Lucy Larkin MD [address] [place] [phone] PCP - General Family Medicine 11/17/13
--- OUTSIDE RECORDS SUMMARY | 2024-09-12 16:58 | XMS_ITS | Encounter Summary ---
Author Organization [employer] Address [address] [place] [address] 7 [place] [address] Care Team Providers Care Spares Scheduler Name Role Phone Lucy Larkin MD Primary Care Provider [phone] Encounter Details Date Type Department Care Team (Late st Contact Info) Description 03/02/2023 Abstract [facility] [address] [place] [address] Lucy Larkin MD [address] [place] [address] Social History Tobacco Use Types Packs/Day Years [...] on filedocumented in this encounter Care Teams Spares Scheduler Relationship Specialty Start Date End Date Lucy Larkin MD [address] [place], [place] [phone] PCP - General Family Medicine 11/17/13 documented as of this encounter
--- OUTSIDE RECORDS SUMMARY | 2024-09-12 16:58 | XMS_ITS | Encounter Summary ---
Author Organization [employer] Address [address] [place] [address] 7 [place] [address] Care Team Providers Care Stock Mixer Name Role Phone Lucy Larkin MD Primary Care Provider [phone] Encounter Details Date Type Department Care Team ([facility] st Contact Info) Description 06/10/[address] [facility] ADULT DENTAL [address] [place] [address] Melina Saunders DDS [address] [place] [address] Social History Tobacco Use Types Packs/Day Years [...] on filedocumented in this encounter Care Teams Stock Mixer Relationship Specialty Start Date End Date Lucy Larkin MD [address] [place] [address] PCP - General Family Medicine 11/17/13 documented as of this encounter
--- OUTSIDE RECORDS SUMMARY | 2024-09-12 16:58 | XMS_ITS | Encounter Summary ---
Author Organization [employer] Address [address] [facility] 7 [place] [address] Care Team Providers Care Certified Family Mediator Name Role Phone Lucy Larkin MD Primary Care Provider [phone] Encounter Details Date Type Department Care Team [...] is your housing situation today? I have key medina 04/15/[address] you [...] documented as of this encounter Care Teams Certified Family Mediator Relationship Specialty Start Date End Date Lucy Larkin MD [address] [place] [address] PCP - General Family Medicine 11/17/13 documented as of this encounter
--- OUTSIDE RECORDS SUMMARY | 2024-09-12 16:58 | XMS_ITS | Encounter Summary ---
Author Organization [employer] Address 75 [facility] 7 [place] [address] Care Team Providers Care Busperson Name Role Phone Lucy Larkin MD Primary Care Provider [phone] Reason for Visit * Reason Onset Date Comments chart prep 09/08/2024 Encounter Details Date Type Department Care Team ([facility] st Contact Info) Description 09/08/2024 Telephone [facility] [address] [place] [address] Chloe Hester MA chart prep Social History Tobacco Use [...] documented as of this encounter Care Teams Busperson Relationship Specialty Start Date End Date Lucy Larkin MD [address] [place] [address] PCP - General Family Medicine 11/17/13 documented as of this encounter
--- OUTSIDE RECORDS SUMMARY | 2024-09-12 16:58 | XMS_ITS | Encounter Summary ---
Author Organization [employer] Address [address] [place] [address] [facility] [place] [address] Care Team Providers Care Crosstie Inspector Name Role Phone Lucy Larkin MD Primary Care Provider [phone] Reason for Referral * Consultation (Routine) - Closed Specialty Diagnoses / Procedures Referred By Maranda schumacher Referred To Contact Behavioral Health Diagnoses Chronic depression Jenny Metzger ANP [address] [place] [address] Phone: tel: fax: Referral ID Status Reason Start Date Expiration Date V isits Requested Visits Authorized [id number] Closed Specialty Services Required 09/09/2024 09/09/2025 1 1 Reason for Visit * Reason Comments Annual Exam Encounter Details Date Type Department Care Team (Late st Contact Info) Description 09/09/2024 1:45 PM EDT Office Visit [facility] MED[facility]INE [address] [place] [address] Jenny Metzger ANP [address] [place] [address] Mild intermittent asthma without complication (Primary Dx); [...] 9:20 AM EDT documented in this encounter Progress Notes * VOLODYMYR Mitchell - 09/09/2024 1:45 PM EDT SUBJECTIVE: Fredrick Barrera is a 29 y.o. year old female who presents for routine physical exam and pre-op. Denies recent illness, injury, or hospitalization. PMH ADHD, asthma, depression, anxiety, allergies, migraine, acne Acute Concerns: Pap due: pt follows w/ [facility] at [facility]. Has paragard in place. Heavy menses lasting 7-9d. Would like to see therapist and psychiatry. She would like phone call, not to see someone today. NoSI. Lots of stress and depression. Having breast surgery end of this mo. Needs pre-op and labs, EKG. Has had same surgery before but had a reaction to the implant in one of her breasts and is getting it changed in both breasts. This will be happening in [place]. Surgery details: Here today for pre-operative clearance. Breast revision [facility], [address] [place] [address], [place] [address] , For pre-op needs CBC, hcg, CMP, PT/INR, EKG Here today for pre-operative clearance. type of anesthesia: general Cardiac Risk History of ischemic heart disease: N History of heart failure: N History of cerebrovascular disease: N Diabetes mellitus requiring treatment with insulin: N If h/o DM, last A1c: NA Preoperative serum creatinine >2.0 mg/dL : N Activity tolerance >4 METS: Yes Bleeding Risk: Chronic anticoagulation: none Blood clotting disorder: none Pulmonary History: well controlled mild asthma, no recent albuterol use Personal or family history of anesthesia reaction: none Non-smoker Lives w/ kids and her brother - brother (18) was recently paralyzed and is now dependent on her. Social History Social History Narrative Not on file Patient Active Problem List Diagnosis Allergic rhinitis Asthma Chronic depression Mood disorder (CMS/HCC) Chronic headache disorder Dysmenorrhea Migraine Obesity Acne Anxiety and depression History of ADHD Viral wart on finger Status post bariatric surgery History of herpes labialis Vaginal itching Vaginal pain Past Surgical History: Procedure Laterality Date BARIATRIC SURGERY 08/26/2018 laparoscopic sleeve gastrectomy, laparoscopic gastropexy by Dr. Kang. Preop BMI 48 COSMETIC SURGERY 10/07/20[address] Back lift surgery by Dr. Guerra COSMETIC SURGERY 03/20/2021 BBL and Jacqui Arshad COSMETIC SURGERY 10/21/2023 Breast augmentation and liposuction by Dr. Guerra Family History Problem Relation Name Age of Onset Diabetes type II Maternal Grandmother Review of Systems Constitutional: Negative for chills and fever. HENT: Negative for sore throat. Respiratory: Negative for cough and shortness of breath. Cardiovascular: Negative for chest pain. Gastrointestinal: Negative for blood in stool, constipation and diarrhea. Endocrine: Negative for polydipsia, polyphagia and polyuria. Genitourinary: Negative for dysuria. Musculoskeletal: Negative for back pain. Neurological: Negative for dizziness and weakness. Psychiatric/Behavioral: Positive for dysphoric mood. The patient is nervous/anxious. OBJECTIVE: Vitals: 09/09/24 1350 BP: 114/66 BP Location: Left arm Patient Position: Sitting BP Cuff Size: Adult long Pulse: 69 Resp: 16 SpO2: 99% Weight: 159 lb 9.6 oz (72.4 kg) Physical Exam Vitals reviewed. Constitutional: General: She is not in acute distress. Appearance: Normal appearance. She is not ill-appearing. HENT: Head: Normocephalic and atraumatic. Right Ear: Tympanic membrane, ear canal and external ear normal. Left Ear: Tympanic membrane, ear canal and external ear normal. Eyes: General: No scleral icterus. Extraocular Movements: Extraocular movements intact. Pupils: Pupils are equal, round, and reactive to light. Neck: Vascular: No carotid bruit. Cardiovascular: Rate and Rhythm: Normal rate and regular rhythm. Pulmonary: Effort: Pulmonary effort is normal. No accessory muscle usage or respiratory distress. Breath sounds: Normal breath sounds. Musculoskeletal: Right lower leg: No edema. Left lower leg: No edema. Lymphadenopathy: Cervical: No cervical adenopathy. Skin: General: Skin is warm and dry. Neurological: General: No focal deficit present. Mental Status: She is alert and oriented to person, place, and time. Psychiatric: Mood and Affect: Mood normal. Behavior: Behavior normal. Office Visit on 09/09/2024 Component Date Value Ref Range Status White Blood Count 09/09/2024 9.2 4.8 - 10.8 X10*3/uL Final Red Blood Count 09/09/2024 3.98 (L) 4.20 - 5.50 X10*6/uL Final Hemoglobin 09/09/2024 12.5 12.0 - 16.0 g/dl Final Hematocrit 09/09/2024 36.0 (L) 37.0 - 47.0 % Final Mean Corpuscular Volume 09/09/2024 90.5 80.0 - 98.0 fL Final Mean Corpuscular Hemoglobin 09/09/2024 31.4 27.0 - 33.0 pg Final Mean Corpuscular HGB Conc 09/09/2024 34.7 31.0 - 35.0 g/dl Final Red Cell Distribution Width 09/09/2024 11.6 11.0 - 16.0 % Final Platelet Count 09/09/2024 267 160 - 400 X10*3/uL Final Mean Platelet Volume 09/09/2024 10.4 9.4 - 12.3 fL Final Neutrophils Percent Auto 09/09/2024 75.5 (H) 45 - 73 % Final Imm Gran Pct Auto 09/09/2024 0.3 0.0 - 0.4 % Final Lymphocytes Percent Auto 09/09/2024 17.1 (L) 20 - 40 % Final Monocytes Percent Auto 09/09/2024 5.4 2 - 11 % Final Eosinophils Percent Auto 09/09/2024 1.4 0 - 4 % Final Basophils Percent Auto 09/09/2024 0.3 0 - 2 % Final NRBC Pct Auto 09/09/2024 0.0 0.0 - 0.2 /100WBC Final Neutrophils Absolute Auto 09/09/2024 6.9 2.0 - 8.3 x10*3/uL Final Imm Gran Abs Auto 09/09/2024 0.03 0.00 - 0.03 X10*3/uL Final Lymphocytes Absolute Auto 09/09/2024 1.6 1.2 - 4.9 X10*3/uL Final Monocytes Absolute Auto 09/09/2024 0.5 0.1 - 1.2 X10*3/uL Final Eosinophils Absolute Auto 09/09/2024 0.1 0.0 - 0.4 X10*3/uL Final Basophils Absolute Auto 09/09/2024 0.0 0.0 - 0.2 X10*3/uL Final NRBC Abs Auto 09/09/2024 0.000 0.0 - 0.012 X10*3/uL Final HCG Quantitative 09/09/2024 <2 mIU/mL Final Weeks post LMP Approximate hCG(Last Menstrual Period) Range (mIU/ml)3 - 4 weeks 9 - 1304 - 5 weeks75 - 2,6005 - 6 weeks 850 - 20,8006 - 7 weeks 4000 - 100,2007 - 12 weeks 11,500 - 289,54139 - 16 weeks 18,300 - 137,59272 - 29 weeks (2nd trimester) 1,400 - 53,32748 - 41 weeks (3rd trimester) 940 -60,000The Pedraza B- hCG assay is used for the early detection ofpregnancy; it cannot be used to diagnose any conditionunrelated to . If a B-hCG level is not supportedby the clinical evidence,results should be confirmed by analternative method (qualitative urine hCG, for example). Prothrombin Time 09/09/2024 13.5 (H) 10.9 - 12.4 SEC Final INTERNATIONAL NORM RATIO 09/09/2024 1.2 (H) 0.9 - 1.1 Final INTERNATIONAL NORMALIZED RATIO (INR) REFERENCE RANGES Reference RangeFor patients not on anticoagulant therapy: 0.9 - 1.1INR ranges for oral anticoagulanttherapy:For prevention and treatment of venous thrombosis and pulmonary embolism: 2.0 - 3.0For acute myocardial infarction with aspirin therapy: 2.0 - 3.0For acute myocardial infarction without aspirin therapy: 3.0 - 4.0For patients with mechanical prosthetic heart valves: 2.5 - 3.5 Sodium 09/09/2024 139 135 - 145 mmol/L Final Potassium 09/09/2024 3.5 3.3 - 5.1 mmol/L Final Chloride 09/09/2024 107 96 - 108 mmol/L Final Carbon Dioxide 09/09/2024 24 22 - 29 mmol/L Final Anion Gap 09/09/2024 12 12 - 20 Final Urea Nitrogen (BUN) 09/09/2024 15 9 - 16 mg/dL Final Creatinine, Serum 09/09/2024 0.61 0.5 - 1.4 mg/dL Final Estimated Glomerular Filt Rate 09/09/2024 >60 Final Chronic Kidney Disease: Estimated GFR < 60 mL/min/[id number] Kidney Disease: Estimated GFR < 15 mL/min/1.73m2 Glucose 09/09/2024 83 60 - 115 mg/dL Final Calcium 09/09/2024 9.5 8.4 - 10.2 mg/dL Final Bilirubin, Total 09/09/2024 0.4 0.0 - 1.0 mg/dL Final Aspartate Amino Transferase 09/09/2024 21 5 - 31 U/L Final Alanine Aminotransferase 09/09/2024 17 0 - 31 U/L Final Total Protein 09/09/2024 7.6 6.5 - 8.0 g/dL Final Albumin Level 09/09/2024 4.4 3.5 - 5.0 g/dL Final Alkaline Phosphatase 09/09/2024 76 39 - 117 U/L Final Partial Thromboplastin Time 09/09/2024 34.8 26.0 - 36.8 SEC Final For information regarding the monitoring of direct thrombininhibitors, please refer to Pharmacy. ASSESSMENT/PLAN Fredrick was seen today for annual exam. Diagnoses and all orders for this visit: Mild intermittent asthma without complication (Primary) Comments: well controlled. albuterol for prn use, no recent use. PCV20 today. Orders: - albuterol 108 (90 Base) MCG/ACT inhaler; inhale 1- 2 puff by inhalation route every 6 hours as needed Chronic depression Comments: referral to for therapy and psych Orders: - Referral to Behavioral Health; Future Status post bariatric surgery Screening for cervical cancer Comments: She will call [facility] for f/u Healthcare maintenance - CBC auto differential; Future - hCG, Total, Quantitative; Future - Prothrombin Time-INR; Future - Comprehensive Metabolic Panel; Future Preop examination Regarding preoperative clearance, pt is at acceptable risk for proposed surgery/procedure. Reviewedthat no surgery is without risk and this evaluation is to assist surgeon in accurately reviewing informed consent and assessing pt appropriateness as surgical candidate. RCRI score: 0 Pt reports no CP at rest or w/ exertion, no RASCON, no LE edema. Reports being able to achieve >4 METs. No personal h/o coagulopathy, DM, renal or CVD. - ECG 12 lead - Partial Thromboplastin Time, Activated (APTT); Future Other orders - Pneumococcal conjugate vaccine 20-valent IM - Pfizer COVID-19 Vaccine 12+ Follow Up: PRN Current Outpatient Medications on File Prior to Visit Medication Sig Dispense Refill acetaminophen (Tylenol) 500 MG tablet take 1 or 2 tablet by oral route every 6 hours as needed not to exceed 6 tablets per 24hrs Acne Medication 5 5 % gel APPLY TO THE AFFECTED AREA(S) TWICE DAILY 60 g 1 ascorbic acid (Vitamin C) 500 MG tablet Take 1 tablet (500 mg) by mouth Once per day. 90 tablet 3 calcium citrate 315 mg + D2 6.25 mcg tablet Take 1 tablet by mouth 2 times daily. 180 tablet 3 cyanocobalamin (Vitamin B-12) 500 MCG tablet Take 1 tablet (500 mcg) by mouth Once per day. 90 tablet 3 ferrous sulfate (Fe Tabs) 325 (65 Fe) MG EC tablet Take 1 tablet (325 mg) by mouth with breakfast. Do not crush, chew, or split. 90 tablet 3 folic acid (Folvite) 800 MCG tablet Take 1 tablet (800 mcg) by mouth Once per day. 90 tablet 3 FT Clotrimazole 1 % vaginal cream INSERT 1 APPLICATORFUL VAGINALLY EVERY DAY AT BEDTIME FOR 7 DAYS 45 g 0 loratadine (Claritin) 10 MG tablet Take 1 tablet (10 mg) by mouth Once per day. 30 tablet 11 valACYclovir (Valtrex) 500 MG tablet Take 1 tab po daily 90 tablet 1 [DISCONTINUED] albuterol 108 (90 Base) MCG/ACT inhaler inhale 1- 2 puff by inhalation route every 6hours as needed [DISCONTINUED] doxycycline (Vibra-Tabs) 100 MG tablet TAKE 1 TABLET BY MOUTH TWICE DAILY WITH A FULL GLASS OF WATER AND DO NOT LIE DOWN FOR AT LEAST 30 MINUTES AFTER 60 tablet 1 [DISCONTINUED] ibuprofen 600 MG tablet Take 1 tablet by mouth in the morning, at noon, and at bedtime. Take with food No current facility-administered medications on file prior to visit. documented in this encounter Plan of Treatment Scheduled Referrals Name Type Priority Associated Diagnoses Order Schedule Referral to Behavioral Health Outpatient Referral Routine Chronic depression Expected: 09/09/2024 (Approximate), Expires: 09/09/2025 documented as of this encounter Procedures Procedure Name Priority Date/Time Associated Diagnosis Comments ECG 12-LEAD Routine 09/09/2024 4:48 PM EDT Preop examination CBC WITH AUTO DIFFERENTIAL Routine 09/09/2024 2:49 PM EDT Healthcare maintenance APTT Routine 09/09/2024 2:49 PM EDT Preop examination PROTHROMBIN TIME-INR Routine 09/09/2024 2:49 PM EDT Healthcare maintenance HCG, TOTAL, QN Routine 09/09/2024 2:49 PM EDT Healthcare maintenance COMPREHENSIVE METABOLIC PANEL Routine 09/09/2024 2:49 PM EDT Healthcare maintenance documented in this encounter Results * ECG 12 lead (09/09/2024 4:48 PM EDT) Narrative Jenny Metzger ANP - 09/09/2024 4:48 PM EDT HR 69, sinus, normal axis. QT/Qtc 368/383. no acute ischemic ST-T change, no hypertrophy Jenny HELM ECG ORDERABLES Final Result * Partial Thromboplastin Time, Activated (APTT) (09/09/2024 2:49 PM EDT) Partial Thromboplastin Time 34.8 26.0 - 36.8 SEC [facility] Comment:For information rega rding the monitoring of direct thrombininhibitors, please refer to Pharmacy. Blood Venous blood specimen / Unknown 09/09/2024 2:49 PM EDT 09/09/2024 3:57 PM EDT Jenny Metzger ANP LAB BLOOD ORDERABLES Final Resul t [facility] [address] [place] [phone] * Comprehensive Metabolic Panel (09/09/2024 2:49 PM EDT) Sodium 139 135 - 145 mmol/L [facility] Potassium 3.5 3.3 - 5.1 mmol/L [facility] Chloride 107 96 - 108 mmol/L [facility] Carbon Dioxide 24 22 - 29 mmol/L [facility] Anion Gap 12 12 - 20 [facility] Urea Nitrogen (BUN) 15 9 - 16 mg/dL [facility] Creatinine, Serum 0.61 0.5 - 1.4 mg/dL [facility] Estimated Glomerular Filt Rate >60 [facility] Comment:Chronic Kidney Disea se: Estimated GFR < 60 mL/min/1.46p6Goaunh Kidney Disease: Estimated GFR < 15 mL/min/1.73m2 Glucose 83 60 - 115 mg/dL [facility] Calcium 9.5 8.4 - 10.2 mg/dL [facility] Bilirubin, Total 0.4 0.0 - 1.0 mg/dL [facility] Aspartate Amino Transferase 21 5 - 31 U/L [facility] Alanine Aminotransferase 17 0 - 31 U/L [facility] Total Protein 7.6 6.5 - 8.0 g/dL [facility] Albumin Level 4.4 3.5 - 5.0 g/dL [facility] Alkaline Phosphatase 76 39 - 117 U/L [facility] Blood Venous blood specimen / Unknown 09/09/2024 2:49 PM EDT 09/09/2024 3:57 PM EDT Jenny Metzger [facility] LAB BLOOD ORDERABLES Final Resul t [facility] [address] [place] [phone] * (ABNORMAL) Prothrombin Time-INR (09/09/2024 2:49 PM EDT) Prothrombin Time 13.5(H) 10.9 - 12.4 SEC [facility] INTERNATIONAL NORM RATIO 1.2(H) 0.9 - 1.1 [facility] Comment:INTERNATIONAL NORMAL IZED RATIO (INR) REFERENCE [...] 2:49 PM EDT 09/09/2024 3:57 PM EDT Jenny Metzger [facility] LAB BLOOD ORDERABLES Final Resul t Performing Organization Address [facility] de Phone Number [facility] [address] [place] [address] [phone] * hCG, Total, Quantitative (09/09/2024 2:49 PM EDT) HCG Quantitative <2 mIU/mL [facility] Comment:Weeks post LMP Appro ximate hCG(Last Menstrual Period) Range (mIU/ml)3 - 4 weeks 9 - 1304 - 5 weeks 75 - 2,6005 - 6 weeks 850 - 20,8006 - 7 weeks 4000 - 100,2007 - 12 weeks 11,500 - 289,21700 - 16 weeks 18,300 - 137,53945 - 29 weeks (2nd trimester) 1,400 - 53,60401 - 41 weeks (3rd trimester) 940 - [...] 2:49 PM EDT 09/09/2024 3:57 PM EDT Jenny Metzger [facility] LAB BLOOD ORDERABLES Final Resul t Performing Organization Address [facility] Co de Phone Number [facility] [address] [place] [phone] [phone] * (ABNORMAL) CBC auto differential (09/09/2024 2:49 PM EDT) White Blood Count 9.2 4.8 - 10.8 X10*3/uL [facility] Red Blood Count 3.98(L) 4.20 - 5.50 X10*6/uL [facility] Hemoglobin 12.5 12.0 - 16.0 g/dl [facility] Hematocrit 36.0(L) 37.0 - 47.0 % [facility] Mean Corpuscular Volume 90.5 80.0 - 98.0 fL [facility] Mean Corpuscular Hemoglobin 31.4 27.0 - 33.0 pg [facility] Mean Corpuscular HGB Conc 34.7 31.0 - 35.0 g/dl [facility] Red Cell Distribution Width 11.6 11.0 - 16.0 % [facility] Platelet Count 267 160 - 400 X10*3/uL [facility] Mean Platelet Volume 10.4 9.4 - 12.3 fL [facility] Neutrophils Percent Auto 75.5(H) 45 - 73 % [facility] Imm Gran Pct Auto 0.3 0.0 - 0.4 % [facility] Lymphocytes Percent Auto 17.1(L) 20 - 40 % [facility] Monocytes Percent Auto 5.4 2 - 11 % [facility] Eosinophils Percent Auto 1.4 0 - 4 % [facility] Basophils Percent Auto 0.3 0 - 2 % [facility] NRBC Pct Auto 0.0 0.0 - 0.2 /100WBC [facility] Neutrophils Absolute Auto 6.9 2.0 - 8.3 x10*3/uL [facility] Imm Gran Abs Auto 0.03 0.00 - 0.03 X10*3/uL [facility] Lymphocytes Absolute Auto 1.6 1.2 - 4.9 X10*3/uL [facility] Monocytes Absolute Auto 0.5 0.1 - 1.2 X10*3/uL [facility] Eosinophils Absolute Auto 0.1 0.0 - 0.4 X10*3/uL [facility] Basophils Absolute Auto 0.0 0.0 - 0.2 X10*3/uL [facility] NRBC Abs Auto 0.000 0.0 - 0.012 X10*3/uL [facility] Blood Venous blood specimen / Unknown 09/09/2024 2:49 PM EDT 09/09/2024 3:57 PM EDT us Jenny HELM LAB BLOOD ORDERABLES Final Resul t [facility] [address] [place] [phone] documented in this encounter Visit Diagnoses Diagnosis Mild intermittent [...] documented as of this encounter Care Teams Crosstie Inspector Relationship Specialty Start Date End Date Lucy Larkin MD [address] [place] [phone] PCP - General Family Medicine 11/17/13 documented as of this encounter
--- OUTSIDE RECORDS SUMMARY | 2024-09-12 16:58 | XMS_ITS | Encounter Summary ---
Author Organization [employer] Address [address] [facility] 7 [place] [address] Care Team Providers Care Drop Forge Operator Name Role Phone Lucy Larkin MD Primary Care Provider Reason for Visit * Reason Onset Date Comments Pre-Op 08/17/2023 Encounter Details Date Type Department Care Team ([facility] st Contact Info) Description 08/17/[address] [facility] [address] [place] [address] Lucy Larkin MD [address] [place] [address] Pre-Op Social History Tobacco Use Types Packs/Day [...] having the surgery below on 10/20/23 in [place] and needs a pre-op appointment prior. She will also need a mammogram prior to this surgery. Pre-op scheduled for 10/06/[address] Larkin for 2:30pm. TC placed to surgeon's officeto review and confirm information below. Long wait on hold and then transferred to for registered nurse surgical services. LM that we are trying to confirm pre-op requirements for a shared patient and to please call us back. Routing message to PCP for review of request for mammogram and back to [place] Team Nurses to confirm pre-op details with surgeon's office. Date of Surgery: 10/19 Surgical procedure being done: breast lift Type of anesthesia: Local Lab needed: yes, CBC with differential, test, metabolic panel, PTT, mammogram EKG: yes Surgeon's name: Dr. Kendell Guerra Facility name[facility] Surgeon's office number: [phone] Surgeon's office fax number: [phone] Contact name (person you spoke with): patient [...] Facility name: [facility] Surgeon's office number: [phone] Surgeon's office fax number: [phone] Contact name (person you spoke with): patient Last office note from surgeon requested: none documented in this encounter Plan of Treatment Not on file documented as of this encounter Visit Diagnoses Not on filedocumented in this encounter Care Teams Drop Forge Operator Relationship Specialty Start Date End Date Lucy Larkin MD [address] [place] [phone] PCP - General Family Medicine 11/17/13 documented as of this encounter
--- OUTSIDE RECORDS SUMMARY | 2024-09-12 16:58 | XMS_ITS | Encounter Summary ---
Author Organization [employer] Address [address] [facility] 7 [place] [address] Care Team Providers Care Mercerizer Name Role Phone Lucy Larkin MD Primary Care Provider [phone] Reason for Visit * Reason Comments Med Refill Encounter Details Date Type Department Care Team ([facility] st Contact Info) Description 11/16/2023 Refill [facility] [address] [place] [address] Tati Johnson MD [address] [place] [address] Social History Tobacco Use Types Packs/Day Years [...] documented as of this encounter Care Teams Mercerizer Relationship Specialty Start Date End Date Lucy Larkin MD [address] [place] [phone] PCP - General Family Medicine 11/17/13 documented as of this encounter
--- OUTSIDE RECORDS SUMMARY | 2024-09-12 16:58 | XMS_ITS | Encounter Summary ---
Author Organization [employer] [facility] Address [address] [place] [address] 7 [place] [address] Care Team Providers Care Manager Math Name Role Phone Lucy Larkin MD Primary Care Provider [phone] Reason for Visit * Reason Onset Date Comments Appointment 06/30/2022 Patient missed a ppt for crown prep at 10 because she thought it was at 3pm PA Expires on 07/06/22 through [facility] can it be resubmitted Encounter Details Date Type Department Care Team (Late st Contact Info) Description 06/30/2022 Telephone [facility] ADULT DENTAL [address] [place] [address] Melina Saunders DDS [address] [place], [place] [phone] Appointment (Patient missed appt for crown prep [...] on filedocumented in this encounter Care Teams Manager Math Relationship Specialty Start Date End Date Lucy Larkin MD [address] [place] [id number] PCP - General Family Medicine 11/17/13 documented as of this encounter
--- OUTSIDE RECORDS SUMMARY | 2024-09-12 16:58 | XMS_ITS | Encounter Summary ---
Author Organization [employer] Address [address] [facility] 7 [place] [address] Care Team Providers Care Stone Cleaner Name Role Phone Lucy Larkin MD Primary Care Provider [phone] Encounter Details Date Type Department Care Team ([facility] st Contact Info) Description 08/14/2023 Orders Only [facility] MED & PEDS [address] [place], [place] [phone] Tati Johnson MD [address] [place] [address] Social History Tobacco Use Types Packs/Day Years [...] on filedocumented in this encounter Care Teams Stone Cleaner Relationship Specialty Start Date End Date Lucy Larkin MD [address] [place] [id number] PCP - General Family Medicine 11/17/13 documented as of this encounter
--- OUTSIDE RECORDS SUMMARY | 2024-09-12 16:58 | XMS_ITS | Encounter Summary ---
Author Organization [employer] Address [address] [facility] 7 [place] [address] Care Team Providers Care Forest Products Gatherer Name Role Phone Lucy Larkin MD Primary Care Provider [phone] Reason for Visit * Reason Comments Med Refill Encounter Details Date Type Department Care Team ([facility] st Contact Info) Description 01/18/2024 Refill [facility] MED & PEDS [address] [place], [place] [phone] Tati Johnson MD [address] [place] [address] Social History Tobacco Use Types Packs/Day Years [...] documented as of this encounter Care Teams Forest Products Gatherer Relationship Specialty Start Date End Date Lucy Larkin MD [address] [place] [id number] PCP - General Family Medicine 11/17/13 documented as of this encounter
--- OUTSIDE RECORDS SUMMARY | 2024-09-12 16:58 | XMS_ITS | Encounter Summary ---
Author Organization [employer] Address [address] [facility] 7 [place] [address] Care Team Providers Care Feller Hand Name Role Phone Lucy Larkin MD Primary Care Provider Reason for Visit * Reason Comments Med Refill Encounter Details Date Type Department Care Team ([facility] st Contact Info) Description 09/09/[address] [facility] MEDICINE [address] [place] [address] Lucy Larkin MD [address] [place] [address] Med Refill Social History Tobacco Use Types Packs/Day Years [...] encounter Miscellaneous Notes * Telephone Encounter - Kaycee Steele RN - 09/12/2024 12:48 PM EDT Telephone call placed to pt regarding below message. 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 Advised to come to [facility] to get it done., no appt necessary. Pt agreeable. Please let pt know her t-spot test was abnormal - therefore needs a chest XR to r/o TB. Have ordered, please direct to get kinga so we can send to her breast surgeon if needed. * Telephone Encounter - Shaylee Nieves RN - 09/12/2024 9:45 AM EDT Awaiting EKG tracing to be uploaded, then will fax pre op clearance per provider request. * Telephone Encounter - Shaylee Nieves RN - 09/12/2024 9:42 AM EDT ----- Message from Jenny Metzger sent at 09/09/2024 4:50 PM EDT ----- Please fax to pt's surgeon's office thanks documented in this encounter Plan of Treatment Not on file documented as of this encounter Visit Diagnoses Not on filedocumented in this encounter Additional Health Concerns Assessment Noted Time PHQ-9 Depression Total Score: 0 10/06/19 24 3:03 PM EDT documented as of this encounter Care Teams Feller Hand Relationship Specialty Start Date End Date Lucy Larkin MD [address] [place] [address] PCP - General Family Medicine 11/17/13 documented as of this encounter
== END 2024-09-12 14:35 | disposition home or self-care (01) ==
LOC: HO.HHCX 14:34
PROVIDERS: Visit Provider Nurse Practitioner Primary Care
DX: R76.11 Nonspecific reaction to tuberculin skin test without active tuberculosis (principal)
CPT/HCPCS: 71046

== ENCOUNTER → 2024-09-12 14:35 | Outpatient (BNV) | payer OTHER, SELFPAY | PROVIDERS: Visit Provider Radiology Diagnostic Radiology | DX: R76.11 Nonspecific reaction to tuberculin skin test without active tuberculosis (principal) | CPT/HCPCS: 71046 ==

== ENCOUNTER 2024-12-05 11:22 | Outpatient (REF) | payer OTHER, SELFPAY ==
[2024-12-05 13:37] LABS: MANUAL DIFF FLAG NO
[2024-12-05 13:42] LABS: Hematocrit 34.6 % (37.0-47.0); Hemoglobin 11.9 g/dl (12.0-16.0); Imm Gran Abs Auto 0.01 X10*3/uL (0.00-0.03); Imm Gran Pct Auto 0.2 % (0.0-0.4); Lymphocytes Absolute Auto 1.2 X10*3/uL (1.2-4.9); Mean Corpuscular HGB Conc 34.4 g/dl (31.0-35.0); Mean Corpuscular Hemoglobin 31.1 pg (27.0-33.0); Mean Corpuscular Volume 90.3 fL (80.0-98.0); NRBC Abs Auto 0.000 X10*3/uL (0.0-0.012); NRBC Pct Auto 0.0 /100WBC (0.0-0.2); Platelet Count 235 X10*3/uL (160-400); Red Blood Count 3.83 X10*6/uL (4.20-5.50); White Blood Count 5.5 X10*3/uL (4.8-10.8)
[2024-12-05 13:47] LABS: INTERNATIONAL NORM RATIO 1.2 (0.9-1.1); Prothrombin Time 13.2 SEC (10.9-12.4)
[2024-12-05 14:21] LABS: Ferritin 27 ng/mL (10-122)
[2024-12-05 14:26] LABS: Folate 12.7 ng/mL (> or = 4.0); Vitamin B12 719 pg/mL (200-900)
[2024-12-05 14:58] LABS: Anion Gap 13 (12-20)
[2024-12-05 15:03] LABS: Alanine Aminotransferase 14 U/L (0-31); Albumin Level 4.6 g/dL (3.5-5.0); Alkaline Phosphatase 75 U/L (39-117); Aspartate Amino Transferase 22 U/L (5-31); Blood Urea Nitrogen 10 mg/dL (9-16); Calcium 9.4 mg/dL (8.4-10.2); Carbon Dioxide 24 mmol/L (22-29); Chloride 108 mmol/L (96-108); Estimated Glomerular Filt Rate > 60; Iron 54 mcg/dL (30-160); Percent Iron Saturation 21 % (15-50); Potassium 3.6 mmol/L (3.3-5.1); Sodium 141 mmol/L (135-145); Total Iron Binding Capacity 252 mcg/dL (228-428); Total Protein 7.3 g/dL (6.5-8.0); Unsaturated Iron Binding 198 ug/dL
[2024-12-06 08:06] LABS: HBsAGNum1 0.29 S/CO (0.00-0.99); HIV Num 1 0.05 S/CO (0.00-0.99); Hepatitis B Surface Antigen Negative (Negative); ~HepC Num1 0.11 S/CO (0.00-0.79); ~Hepatitis C Antibody Nonreactive (Nonreactive)
[2024-12-06 08:20] LABS: Syphilis Screen Nonreactive (Nonreactive)
[2024-12-09 08:03] LABS: Quantiferon TB Gold Plus 1 NEGATIVE (NEGATIVE); TB Test (QFT) Mitogen -Nil >10.00 IU/mL; TB Test (QFT) Nil 0.05 IU/mL; TB Test (QFT) Plus TB1 -Nil 0.15 IU/mL; TB Test (QFT) Plus TB2 -Nil 0.17 IU/mL
== END 2024-12-05 11:23 | disposition home or self-care (01) ==
LOC: HO.HHCL 11:22
PROVIDERS: Nurse Practitioner Primary Care; PCP Family Medicine; Visit Provider Family Medicine
DX: Z01.818 Encounter for other preprocedural examination (principal); Z11.1 Encounter for screening for respiratory tuberculosis; Z11.3 Encounter for screening for infections with a predominantly sexual mode of transmission; Z11.4 Encounter for screening for human immunodeficiency virus [HIV]; Z11.59 Encounter for screening for other viral diseases; R63.4 Abnormal weight loss; R76.11 Nonspecific reaction to tuberculin skin test without active tuberculosis; Z98.84 Bariatric surgery status
CPT/HCPCS: 36415; 80053; 82306; 82607; 82728; 82746; 83540; 84443; 85025; 85610; 86480; 86780; 86803; 87340; 87389

== ENCOUNTER 2024-12-19 10:27 | Outpatient (AMB) | payer OTHER, SELFPAY ==
--- NOTE | 2024-12-19 10:37 | MHC.OFFVISWM ---
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 Presents for 6 year 4 month post op visit. Weight today is 159 pounds, with a BMI today of 28.6. She underwent panniculectomy in [place], [place] 03/20/21. She states she had breast augmentation in [place], 10/20/23. Reports infrequent but normal bowel movements every 1-2 days and uses stool softeners regularly. She was last seen in the office in November 2023 with a weight of 164.4 lb and a BMI of 29.6. Not eating rice or crackers and drinking more water. She states that since last being seen, she has had multiple family tragedies, she is now caring for her family members and she has not been able to focus much on herself. She is now trying to commit to herself. States she has only following the meal plan below sometimes. Present meal plan includes: Orgain 2 scoops in 10 oz of almond milk x2 Meal 6 forks protein 6 forks vegetables Half cup fresh fruit if needed Drinkin oz water ? Exercise routine includes: 2 times per week, weights at home weights at home has gym membership at [employer] home video exercises 3 x per week, not tracking calories. [facility] Medical History Migraine with aura Asthma IUD (intrauterine device) in place Surgical History (Updated 12/19/24 @ 10:41 by Rosina Mcbride CMA) Hx of breast augmentation History of abdominoplasty History of sleeve gastrectomy Family History Mother History of asthma History of anxiety Father Diabetes Heart problem Daughter Autism Son Autism Daughter No problems noted. 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 Encouraged to create a meal plan. Additionally, encouraged to return to the gym. She lives close to the [facility] and was given membership discount paperwork. Encouraged to burn 300 calories per day or 2000 calories per week. We will have her return to the office in a proximally 2 months, calling sooner should there be any questions or concerns.
[2024-12-19 10:45] VITALS: BP 116/66; PULSE 73; TEMP 35.7; O2SAT 98; BMI 28.6
== END 2024-12-19 11:00 | disposition home or self-care (01) ==
LOC: HO.HBS 10:28
PROVIDERS: Visit Provider Physician Assistant Surgical
DX: E66.3 Overweight (principal); Z98.84 Bariatric surgery status; Z90.3 Acquired absence of stomach [part of]; Z68.28 Body mass index [BMI] 28.0-28.9, adult
CPT/HCPCS: 99213

== ENCOUNTER → 2024-12-19 10:27 | Outpatient (BNVA) | payer OTHER, SELFPAY | PROVIDERS: Visit Provider Physician Assistant Surgical | DX: Z98.84 Bariatric surgery status (principal) | CPT/HCPCS: 99212 ==

== ENCOUNTER 2025-02-20 10:45 | Outpatient (AMB) | payer OTHER, SELFPAY ==
--- NOTE | 2025-02-20 10:34 | MHC.OFFVISWM ---
VS Expanded 02/20/25 10:38 Height 5 ft 2.5 in Weight 156 lb BMI 28.1 Intake Visit Reasons: TV PO LSG 08/26/18 Allergies No Known Allergies (No Known Allergies*) Allergy (Verified 12/16/23 14:40) Medication List - Last Reconciled 02/20/25 by NONA Rojas copper (ParaGard T 380A) intrauterine multivitamin (Daily Multi-Vitamin tablet) 1 tab PO DAILY zinc gluconate 50 mg PO DAILY 90 days HPI Comments Details: This a 29 yo female who is s/p LSG without hiatal hernia repair on 08/26/[address] Kang. She underwent panniculectomy in [place], [place] 03/20/21. She states she had breast augmentation in [place], 10/20/23. She was last seen in the office in November 2024 with a weight of 159lbs and BMI 28.6. She thinks she weights 155-156 this week but is unsure. She cares for both her son and brother who are disabled. Present meal plan includes: Orgain 2 scoops in 10 oz of almond milk x2 Meal 6 forks protein 6 forks vegetables Half cup fresh fruit if needed Drinkin oz water given at previous visit, but not always able to follow this plan -in morning will have 1 egg with spinach and parm cheese, or 2 eggs and avocado; will have ham and cheese or fruit at lunch, low sugar yogurt; for dinner will avoid high carb foods and have a protein/meat and veggies Exercise routine includes: had returned to gym daily, but last 2 weeks had difficulty getting there due to family issues- son is disabled and having to travel to [place] - was able to do treadmill 4x/week, uphill workouts for 400 calories each tried to work out at home Has some excess skin of arms, back. Goal weight 150. Was previously able to get down to 131lbs. [facility] Medical History Migraine with aura Asthma IUD (intrauterine device) in place Surgical History (Updated 12/19/24 @ 10:41 by Rosina Mcbride CMA) Hx of breast augmentation History of abdominoplasty History of sleeve gastrectomy Family History Mother History of asthma History of anxiety Father Diabetes Heart problem Daughter Autism Son Autism Daughter No problems noted. 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 Gender identity: Female Female Reproductive History Menstrual Age of Menarche: 12 Telehealth Telehealth Telehealth Platform: Telephone Location of provider rendering services: other Location of patient: address on file Patient Identification confirmed using: Name, : Yes Telehealth method: voice only Patient verbally consented to treatment: Yes Patient verbally consented to billing insurance company: Yes Patient informed of any privacy concerns related to visit: Yes Minutes spent on Phone/Video with Pt.: 16 Assessment & Plan Assessment & Plan (1) Overweight with body mass index (BMI) 25.0-29.9: Code(s): E66.3 - Overweight Category: Medical (2) S/P laparoscopic sleeve gastrectomy: Code(s): Z98.84 - Bariatric surgery status Category: Surgical Plan Pt is doing better tracking exercise calories. She plans to increase exercise again this week. Suggested yogurt at lunch time instead of ham and cheese, also try to use a shake for breakfast to ensure sufficient protein without excess calories. Had labs done over the summer. She has an appt already scheduled for May.
[2025-02-20 10:38] VITALS: BMI 28.1
--- OUTSIDE RECORDS SUMMARY | 2025-02-20 13:14 | XMS_ITS | Encounter Summary ---
Author Organization [employer] Address [address] [facility] 7t [place] [address] Care Team Providers Care Draw Tender Name Role Phone Lucy Larkin MD Primary Care Provider [phone] Encounter Details Date Type Department Care Team (Late st Contact Info) Description 06/10/2022 Abstract [facility] ADULT DENTAL [address] [place] [address] Zapata-SmallwoodMelina cazares, DDS [address] [place] [address] Social History Tobacco Use Types Packs/Day Years [...] on filedocumented in this encounter Care Teams Draw Tender Relationship Specialty Start Date End Date Lucy Larkin MD [address] [place] [address] PCP - General Family Medicine 11/17/13 documented as of this encounter
--- OUTSIDE RECORDS SUMMARY | 2025-02-20 13:14 | XMS_ITS | Encounter Summary ---
Author Organization [employer] Address [address] [facility] 7 [place] [address] Care Team Providers Care Shipwright Name Role Phone Lucy Larkin MD Primary Care Provider [phone] Reason for Visit * Reason Onset Date Comments Appointment 06/30/2022 Patient missed a ppt for crown prep at 10 because she thought it was at 3pm PA Expires on 07/06/22 through [facility] can it be resubmitted Encounter Details Date Type Department Care Team (Late st Contact Info) Description 06/30/2022 Telephone [facility] ADULT DENTAL [address] [place], [place] [phone] Melina Saunders, SULEMA [address] [place], [place] [phone] Appointment (Patient missed appt for crown prep [...] Miscellaneous Notes * Telephone Encounter - Angie Jerry - 06/30/2022 2:17 PM EST Patient missed appt for crown prep at 10 because she thought it was at 3pm PA Expires on 07/06/22 through [facility] can it be resubmitted documented in this encounter Plan of Treatment Not on file documented as of this encounter Visit Diagnoses Not on filedocumented in this encounter Care Teams Shipwright Relationship Specialty Start Date End Date Lucy Larkin MD [address] [place] [id number] PCP - General Family Medicine 11/17/13 documented as of this encounter
--- OUTSIDE RECORDS SUMMARY | 2025-02-20 13:15 | XMS_ITS | Clinical Summary ---
Author Organization [employer] Address [address] [facility] [address] [place] [address] Care Team Providers Care Environmental Health Physician Name Role Phone Lucy Larkin MD Primary Care Provider [phone] Allergies No known active allergies Medications * This document contains information received from the source organization and may not represent a complete record from that organization. acetaminophen (Tylenol) 500 MG tablet take 1 or 2 tablet by oral route every 6 hours as needed not to exceed 6 tablets per 24hrs 09/10/19 22 Active loratadine (Claritin) 10 MG tablet Take 1 tablet (10 mg) by mouth Once per day. 30 tablet 11 10/06/19 24 Active folic acid (Folvite) 800 MCG tablet Take 1 tablet (800 mcg) by mouth Once per day. 90 tablet 3 10/07/19 24 Active cyanocobalamin (Vitamin B-12) 500 MCG tablet Take 1 tablet (500 mcg) by mouth Once per day. 90 tablet 3 10/07/19 24 Active calcium citrate 315 mg + D2 6.25 mcg tablet Take 1 tablet by mouth 2 times daily. 180 tablet 3 10/07/19 24 Active Acne Medication 5 5 % gel APPLY TO THE AFFECTED AREA(S) TWICE DAILY 60 g 1 10/14/19 24 Active FT Clotrimazole 1 % vaginal creamIndications :Vaginal itching INSERT 1 APPLICATORFUL VAGINALLY EVERY DAY AT BEDTIME FOR 7 DAYS 45 g 08/11/19 25 Active albuterol 108 (90 Base) MCG/ACT inhalerIndicatio ns:Mild intermittent asthma without complication inhale 1- 2 puff by inhalation route every 6 hours as needed 18 g 09/10/19 25 Active valACYclovir (Valtrex) 500 MG tabletIndication s:History of herpes labialis TAKE 1 TABLET BY MOUTH EVERY DAY 90 tablet 1 11/10/19 25 Active escitalopram (Lexapro) 5 MG tablet Take 1 tablet (5 mg) by mouth Once per day. May take 2 tablets by mouth after 1 week 60 tablet 3 12/06/19 25 Active methylphenidate ER (Metadate ER) 10 MG CR tabletIndication s:Adult ADHD Take 1 tablet (10 mg) by mouth in the morning. Do not crush, chew, or split. 30 tablet 12/06/19 25 Active ferrous sulfate (Fe Tabs) 325 (65 Fe) MG EC tablet Take 1 tablet by mouth three times a week. Do not crush, chew, or split. 45 tablet 3 12/17/19 25 Active montelukast (Singulair) 10 MG tablet Take 10 mg by mouth at bedtime. 04/08/20 24 Active Active Problems Problem Noted Date Diagnosed Date Anemia 02/09/2025 Pes planus of both feet 12/16/2024 Bunion 12/16/2024 Overweight 12/16/2024 Assessment & Plan (12/16/2024 11:33 AM EDT): - sleeve gastrectomy on 08/26/2017 [facility] - [place]lectomy in [place], [place] 03/20/21. - breast augmentation in [place], 10/20/23. Revision in September 2024. - Continue working on lifestyle modifications. - connected with [facility] weight management [facility]. - Generic advice as below. Tailor for your unique body, character, and specific condition. Dietary Recommendations: Fruits, vegetables, whole grains, protein foods, and fat-free or low-fat dairy products are healthy choices. Eat different types of protein foods in your diet. This can include seafood, lean meats, poultry, beans, peas, lentils, nuts, seeds, soy products, and eggs. Limit foods and beverages higher in added sugars, saturated fat, and sodium. Exercise Recommendations: At least 150 minutes of moderate-intensity physical activity per week, or an equivalent combination of moderate- and vigorous-intensity activity PTSD (post-traumatic stress disorder) 10/25/2024 Assessment & Plan (12/16/2024 11:35 AM EDT): - PHQ-9 score 14. SHAYLEE-7 score 21 in September 2024 - evaluated by integrated behavioral health service clinician in September 2024 Housing instability 10/25/2024 History of herpes labialis 03/08/2024 Assessment & [...] and Chlamydia. -given work note'-ER precautions discussed. Status post bariatric surgery 12/01/2023 Assessment & Plan (12/16/2024 11:32 AM EDT): - sleeve gastrectomy on 08/26/2017 [facility] [place] management clinic - [place]annic[place]lectomy in [place], [place] 03/20/21. - breast augmentation in [place], 10/20/23. Revision in September 2024. Severe anxiety 10/07/2023 Assessment & Plan (12/16/2024 11:35 AM EDT): - PHQ-9 score 14. SHAYLEE-7 score 21 in September 2024 - evaluated by integrated behavioral health service clinician in September 2024 Prescribed 12/05/24: - escitalopram (Lexapro) 5 MG tablet - methylphenidate ER (Metadate ER) 10 MG CR tablet Adult ADHD (attention deficit hyperactivity diso rder) 10/07/2023 Assessment & Plan (12/16/2024 11:39 AM EDT): - patient was receiving stimulants during school years - start methylphenidate ER (Metadate ER) 10 MG CR tablet Assessment & Plan (10/07/2023 1:14 PM EDT): [...] months to monitor and for annual exam Moderately severe depression 09/24/2015 Assessment & Plan (12/16/2024 11:38 AM EDT): - PHQ-9 score 14. SHAYLEE-7 score 21 in September 2024 - evaluated by integrated behavioral health service clinician in September 2024 - Start escitalopram (Lexapro) 5 MG tablet Assessment & Plan (10/07/2023 1:17 PM EDT): PHQ 9 score 0 today Will have integrated behavioral health service evaluation at next visit Dysmenorrhea 01/24/2014 Allergic rhinitis 02/23/2012 Assessment & Plan (10/07/2023 1:17 PM EDT): - resume loratadine - patient dislikes nasal spray Asthma 02/23/2012 Assessment & Plan (12/16/2024 11:40 AM EDT): - patient states it has been well-controlled and has not used inhaler for few years - continue albuterol HFA prn; consider re-evaluating with PFT and/or switch to SMART Assessment & Plan (10/07/2023 1:10 PM EDT): - patient states it has been well-controlled and has not used inhaler for few years - continue albuterol HFA prn Mood disorder 02/23/2012 Assessment & Plan (12/16/2024 11:37 AM EDT): - Hx ADHD, anxiety, and depression - current Dx: ADHD; anxiety; depression ; PTSD, caregiver's stress - previously receiving stimulants (Concerta and Adderall) and SSRI (citalopram and fluoxetine) - PHQ-9 score 14. SHAYLEE-7 score 21 in September 2024 - evaluated by integrated behavioral health service clinician in September 2024 Prescribed 12/05/24: - escitalopram (Lexapro) 5 MG tablet - methylphenidate ER (Metadate ER) 10 MG CR tablet Assessment & Plan (10/07/2023 1:15 PM EDT): - Hx ADHD, anxiety, and depression - previously receiving stimulants (Concerta and Adderall) and SSRI (citalopram and fluoxetine) - PHQ9 is 0, yet patient is interested in resuming pharmacological treatment due to worsening anxiety symptoms (?ADHD symptoms) - will have integrated behavioral health service evaluation at next visit Chronic headache disorder 02/23/2012 Migraine 02/23/2012 Resolved Problems Problem Noted Date Diagnosed Date Resolved Date Vaginal itching 03/08/2024 12/16/2024 Vaginal pain 03/08/2024 12/16/2024 Overview (03/08/2024): Pt having symptoms every menses [...] Chlamydia -given work note -ER precautions discussed. Vaginal lesion 01/22/2023 10/07/2023 Assessment & Plan (01/22/2023 2:12 PM EDT): Swab for HSV obtained, check RPR. No evidence of bacterial infection. Possibly due to shaving. Routine STI screening done. Abscess of labia 03/30/2018 10/07/2023 Obesity 02/23/2012 12/16/2024 Assessment & Plan (10/07/2023 1:11 PM EDT): - continue working on lifestyle modifications Encounters * This document contains information received from the source organization and may not represent a complete record from that organization. Date Type Department Care Team Description 02/09/[address] [phone] Lucy Larkin MD No Show 02/08/2025 Telephone [facility] [address] [place] [phone] Chloe Hester [place] 12/16/2024 Orders Only [address] [address] Lucy Larkin MD 12/16/[address] [address] Lucy Larkin MD TB Clinic F/U 12/05/2024 10:15 AM EDT Office Visit [address] [address] Lucy Larkin MD Mood disorder (CMS/HCC) (Primary Dx); PTSD (post-traumatic stress disorder); Severe anxiety; Moderately severe depression; Adult ADHD (attention deficit hyperactivity disorder); Positive TB test; Weight loss; Routine screening for STI (sexually transmitted infection); Status post bariatric surgery; Adult ADHD; Pes planus of both feet; Bunion; Dietary counseling; Exercise counseling; Overweight; Mild intermittent asthma without complication; Housing instability 12/05/2024 Travel 12/01/[address] [phone] Lucy Larkin MD chartprep 11/29/[address] [phone] Kaycee Steele RN 11/25/2024 Patient Outreach [address] [phone] Lucy Larkin MD Care Coordination ([facility] outreach for [facility] housing search-referral completed ) 11/25/2024 Patient Outreach [facility] [address] [place] [address] Lucy Larkin MD Pre-visit Planning (SDOH screening positive and Tobacco screening negative) 11/22/2024 Patient Outreach [facility] [address] [place] [address] Lucy Larkin MD Care Coordination (Provider Referral- [facility]) from Last 3 Months Immunizations Immunization Administration Dates Next Due DTaP 01/27/2008, 9,06/14/1996,09/10,1995,1995 [...] Tobacco: Never Tobacco Cessation:Counseling Given: Not Answered Alcohol Use Standard Drinks/Week Comments Never 0 (1 standard drink = 0.6 oz pur e alcohol) Depression Answer Date Recorded Patient Health Questionnaire-9 Score 14 10/25/2024 Patient Health Questionnaire-9 Score 14 10/25/2024 Last PHQ-9: Questionnaire Data Not on file 0 10/25/2024 Housing Stability Answer Date Recorded What is your housing situation today? I have housing today, but I am worried about losing housing in the future 11/25/[address] you li ve. Do you have problems with any of the following? None of the above 11/25/2024 Food Insecurity Answer Date Recorded Within the past 12 months, y ou worried that your food would run out before you got money to buy more: Sometimes True 2024 Within the past 12 months,th e food you bought just didn't last and you didn't have enough money to get more: Sometimes True 11/25/2024 Transportation Answer Date Recorded In the past 12 months, has l ack of transportation kept you from medical appts, meetings, work or from getting things needed for daily living? No 11/25/2024 Utilities Answer Date Recorded In the past 12 months, has t he electric, gas, oil or water company threatened to shut off services in your home? No 11/25/2024 Depression Answer Date Recorded Patient Health Questionnaire-2 Score 5 10/25/2024 Internet Access Answer Date Recorded Internet Access Q1 Yes 11/25/2024 Internet Access Q2 Not on file 11/25/2024 Comments Unknown Sex and Gender Information Value Date Recorded Sex Assigned at Female 03/31/2022 10:20 AM EDT Legal Sex Female 10:20 AM EDT Gender Identity Female 03/31/2022 10:20 AM EDT Sexual Orientation Straight 03/31/2022 10 :20 AM EDT Last Filed Vital Signs Vital Sign Reading Time Taken Comments Blood Pressure 100/62 12/05/2024 10:20 AM EDT Pulse 70 12/05/2024 10:20 AM EDT Temperature 36.8 C (98.3 F) 12/05/2024 10:20 AM EDT Respiratory Rate 22 12/05/2024 10:20 AM EDT Oxygen Saturation 99% 09/09/2024 1:50 PM EDT Inhaled Oxygen Concentration - - Weight 72.2 kg (159 lb 2 oz) 12/05/2024 10:20 AM EDT Height 158.2 cm (5' 2.3 ) 12/05/2024 10:20 AM ED T Body Mass Index 28.82 12/05/2024 10:20 AM EDT Plan of Treatment Health Maintenance Due Date Last Done Comments Dental Oral Exam 06/11/2018 12/08/2017, 12/04/2014 Dental Prophylaxis 09/21/2018 03/22/2018, 06/08/2014 Dental X-Ray: Full Mouth 12/09/2020 12/08/2017 Dental X-Ray: Bitewings 11/14/2022 11/14/19, 12/08/2017, 12/04/2014 Pap Smear 08/01/2023 07/31/2020, 07/30/2020 Influenza Vaccine (#1) 2025 , 02/28/2019, 03/17/2017, Additional history exists Family Planning (PISQ) 03/08/2025 03/08/2024 Depression Monitoring 04/27/2025 10/25/2024, 025 SDOH Screening 11/25/2025 11/25/2024 Alcohol/Substance Use Screening 12/05/2025 12/05/2024 Disability Screening 12/05/2025 12/05/2024 Tobacco Screening 12/05/2025 12/05/2024 Lipid Panel 12/15/2028 12/16/2023, 10/06/2023 DTaP/Tdap/Td Vaccines [...] on patient's age to complete this topic COVID-19 Vaccine Completed 09/09/2024, , 03/08/2021, Additional history exists Pneumococcal Vaccine: Pediatrics (0 to 5 Years) and At-Risk Patients (6 to 49) Years Completed 09/09/2024, 05/26/2016 HIV Screening Completed 12/05/2024, 11/2023, 07/30/2023, Additional history exists Hepatitis C Screening Completed 12/05/2024 , 10/06/2023, 10/01/2021 Meningococcal B Vaccine Aged Out No l onger eligible based on patient's age to complete this topic RSV under 20 months Aged Out No longe r eligible based on patient's age to complete this topic Rotavirus Vaccines Aged Out No longer eligible based on patient's age to complete this topic Procedures Procedure Name Priority Date/Time Associated Diagnosis Comments TSH W/REFLEX TO FT4 Routine 12/05/2024 1 1:48 AM EDT Weight loss HEPATITIS B SURFACE ANTIGEN, EIA Routine 12/05/2024 11:48 AM EDT Routine screening for STI (sexually transmitted infection) HIV 1/2 ANTIGEN/ANTIBODY, FOURTH GENERATION W/RFL Routine 12/05/2024 11:48 AM EDT Routine screening for STI (sexually transmitted infection) HEPATITIS C AB W/REFL TO HCV RNA, QN, PCR Routine 12/05/2024 11:48 AM EDT Routine screening for STI (sexually transmitted infection) SYPHILIS SCREEN Routine 12/05/2024 11:48 AM EDT Routine screening for STI (sexually transmitted infection) VITAMIN D,25-OH,TOTAL,IA Routine 12/05/2024 11:48 AM EDT Status post bariatric surgery VITAMIN B12/FOLATE, SERUM PANEL Routine 12/05/2024 11:48 AM EDT Status post bariatric surgery FERRITIN Routine 12/05/2024 11:48 AM EDT Status post bariatric surgery IRON AND TOTAL IRON BINDING CAPACITY Routine 12/05/2024 11:48 AM EDT Status post bariatric surgery COMPREHENSIVE METABOLIC PANEL Routine 12/05/2024 11:48 AM EDT Weight loss CBC WITH AUTO DIFFERENTIAL Routine 12/05/2024 11:48 AM EDT Weight loss QUANTIFERON(R)-TB GOLD PLUS, 1 TUBE Routine 12/05/2024 11:48 AM EDT Positive TB test PROTHROMBIN TIME-INR Routine 12/05/2024 11:48 AM EDT Preop examination LIPID PANEL, STANDARD Routine 12/16/2023 3:13 PM EDT BITEWING - SINGLE RADIOGRAPHIC IMAGE Routine 11/13/2021 12:00 AM EDT HM PAP/HPV Routine 07/31/2020 PROPHYLAXIS - ADULT Routine 03/22/2018 1 2:00 AM EDT INTRAORAL - COMPLETE SERIES OF RADIOGRAPHIC IMAGES Routine 12/08/2017 12:00 AM EDT PERIODIC ORAL EVALUATION - ESTABLISHED PATIENT Routine 12/08/2017 12:00 AM EDT from Last 3 Months or Most Recently Relevant to Health Maintenance Results * Syphilis Screen (12/05/2024 11:48 AM EDT) Syphilis Screen Nonreactive Nonreactive [facility] 12/05/2024 11:4 8 AM EDT 12/05/2024 1:34 PM EDT us Lucy Sakurai MD LAB BLOOD ORDERABLES Final Resul t Performing Organization Address City/[facility]/ZIP Co de Phone Number [facility] [address] [place] [address] [phone] * Vitamin D, 25-Hydroxy, Total, Immunoassay (12/05/2024 11:48 AM EDT) Vitamin D 25-OH Total 32.2 >30 ng/mL [facility] Comment: Health Based Reference Values*< 20 ng/mL Meqafghea58-09 ng/mL Insufficient> 30 ng/mL Sufficient*Odette SANCHEZ. N Engl J Med. 2007;357:266-280There is no well-established upper level of normal vitamin Dlevels. Some laboratories use 50 ng/mL as an upper limit ofnormal. However, toxicity is patient-dependent and may occurat any level. Careful correlation with the patient'spresentation is necessary and, if there is concern forvitamin D toxicity, treatment should be consideredirrespective of the serum level.Care must be taken in interpreting Vitamin D results fromdifferent laboratories and methodologies. Published datademonstrated that results from patients undergoinghemodialysis may show a negative bias when tested withvarious automated 25-OH vitamin D assays when compared toLC-MS/MS.When testing samples from patients whose predominant form ofVitamin D is Vitamin D2, such as patients receiving VitaminD2 supplementation, results that are subtherapeutic shouldbe confirmed with another method such as LC-MS/MS. Blood Venous blood specimen / Unknown 12/05/2024 11:48 AM EDT 12/05/2024 1:34 PM EDT Lucy Larkin MD LAB BLOOD ORDERABLES Final Resul t Performing Organization Address [facility]/ZIP Co de Phone Number [facility] [address] [place] [address] [phone] * Vitamin B12 (Cobalamin) and Folate Panel, Serum (12/05/2024 11:48 AM EDT) Vitamin B12 719 200 - 900 pg/mL [facility] Comment:NORMAL 200-900 PG/ML INDETERMINATE 160-199 PG/ML DEFICIENT < 160 PG/ML Folate 12.7 > or = 4.0 ng/mL [facility] Comment:Reference Values:> o r = 4.0 ng/mL< 4.0 ng/mL suggests folate deficiency Methotrexate, aminopterin and folinic acid(leucovorin) are chemotherapeutic agents whose molecularstructures are similar to folate; therefore, the Architectfolate assay cannot be used for patients using these drugs. Blood 12/05/2024 11:4 8 AM EDT 12/05/2024 1:34 PM EDT Lucy Larkin MD LAB BLOOD ORDERABLES Final Resul t Performing Organization Address [facility] Co de Phone Number [facility] [address] [place] [phone] * TSH with Reflex to Free T4 (12/05/2024 11:48 AM EDT) TSH reflex Free T4 1.52 0.32 - 4.0 uIU/mL [facility] Blood 12/05/2024 11:4 8 AM EDT 12/05/2024 1:34 PM EDT us Lucy Larkin MD LAB BLOOD ORDERABLES Final Resul t Performing Organization Address [facility] Co de Phone Number [facility] [address] [place] [phone] * (ABNORMAL) CBC auto differential (12/05/2024 11:48 AM EDT) White Blood Count 5.5 4.8 - 10.8 X10*3/uL [facility] Red Blood Count 3.83(L) 4.20 - 5.50 X10*6/uL [facility] Hemoglobin 11.9(L) 12.0 - 16.0 g/dl [facility] Hematocrit 34.6(L) 37.0 - 47.0 % [facility] Mean Corpuscular Volume 90.3 80.0 - 98.0 fL [facility] Mean Corpuscular Hemoglobin 31.1 27.0 - 33.0 pg [facility] Mean Corpuscular HGB Conc 34.4 31.0 - 35.0 g/dl [facility] Red Cell Distribution Width 11.7 11.0 - 16.0 % [facility] Platelet Count 235 160 - 400 X10*3/uL [facility] Mean Platelet Volume 10.3 9.4 - 12.3 fL [facility] Neutrophils Percent Auto 68.9 45 - 73 % [facility] Imm Gran Pct Auto 0.2 0.0 - 0.4 % [facility] Lymphocytes Percent Auto 21.7 20 - 40 % [facility] Monocytes Percent Auto 6.7 2 - 11 % [facility] Eosinophils Percent Auto 1.8 0 - 4 % [facility] Basophils Percent Auto 0.7 0 - 2 % [facility] NRBC Pct Auto 0.0 0.0 - 0.2 /100WBC [facility] Neutrophils Absolute Auto 3.8 2.0 - 8.3 x10*3/uL [facility] Imm Gran Abs Auto 0.01 0.00 - 0.03 X10*3/uL [facility] Lymphocytes Absolute Auto 1.2 1.2 - 4.9 X10*3/uL [facility] Monocytes Absolute Auto 0.4 0.1 - 1.2 X10*3/uL [facility] Eosinophils Absolute Auto 0.1 0.0 - 0.4 X10*3/uL [facility] Basophils Absolute Auto 0.0 0.0 - 0.2 X10*3/uL [facility] NRBC Abs Auto 0.000 0.0 - 0.012 X10*3/uL [facility] Blood Venous blood specimen / Unknown 12/05/2024 11:48 AM EDT 12/05/2024 1:34 PM EDT us Lucy Larkin MD LAB BLOOD ORDERABLES Final Resul t Performing Organization Address City/[facility] Co de Phone Number [facility] [address] [place] [address] [phone] * Hepatitis C Antibody with Reflex to HCV, RNA, Quantitative, Real-Time PCR (12/05/2024 11:48 AM EDT) Pathologist [facility] Hepatitis C Antibody Nonreactive Nonreactive [facility] Comment:Antibodies to HCV no t detected; does not exclude early acuteHCV infection. Venous blood specimen / Unknown 12/05/2024 11:48 AM EDT 12/05/2024 1:34 PM EDT Lucy Larkin MD LAB BLOOD ORDERABLES Final Resul t Performing Organization Address [facility] Co de Phone Number [facility] [address] [place] [address] [phone] * Iron And Total Iron Binding Capacity (12/05/2024 11:48 AM EDT) Pathologist [facility] Iron 54 30 - 160 mcg/dL [facility] Total Iron Binding Capacity 252 228 - 428 mcg/dL [facility] Percent Iron Saturation 21 15 - 50 % [facility] Unsaturated Iron Binding 198 ug/dL [facility] Blood Venous blood specimen / Unknown 12/05/2024 11:48 AM EDT 12/05/2024 1:34 PM EDT Lucy Larkin MD LAB BLOOD ORDERABLES Final Resul t Performing Organization Address [facility] Co de Phone Number [facility] [address] [place] [address] [phone] * Hepatitis B surface antigen, EIA (12/05/2024 11:48 AM EDT) Pathologist [facility] Hepatitis B Surface Ag Negative Negative [facility] Venous blood specimen / Unknown 12/05/2024 11:48 AM EDT 12/05/2024 1:34 PM EDT Lucy Larkin MD LAB BLOOD ORDERABLES Final Resul t Performing Organization Address City/[facility] Co de Phone Number [facility] [address] [place] [address] [phone] * QuantiFERON??-TB Gold Plus, 1 Tube (12/05/2024 11:48 AM EDT) Quantiferon -TB Gold Plus, 1 Tube NEGATIVE NEGATIVE [facility] Comment:Negative test result . M. tuberculosis complexinfection unlikely. NIL 0.05 IU/mL [facility] MITOGEN-NIL >10.00 IU/mL [facility] TB1-NIL 0.15 IU/mL [facility] TB2-NIL 0.17 IU/mL [facility] Comment:The Nil tube value r eflects the background interferongamma immune response of the patient's blood sample.This value has been subtracted from the patient'sdisplayed TB and Mitogen results.Lower than expected results with the Mitogen tubeprevent false-negative Quantiferon readings bydetecting a patient with a potential immunesuppressive condition and/or suboptimal pre-analyticalspecimen handling.The TB1 Antigen tube is coated with theM. tuberculosis-specific antigens designed to elicitresponses from TB antigen primed CD4+ helperT-lymphocytes.The TB2 Antigen tube is coated with theM. tuberculosis-specific antigens designed to elicitresponses from TB antigen primed CD4+ helper and CD8+cytotoxic T-lymphocytes.For additional information, please refer tohttps://education.[employer].com/faq/PCJ168(This link is being provided for informational/educational purposes only.)THIS TEST WAS PERFORMED AT:[facility] [employer] [place] [phone] MAST MD Blood Venous blood specimen / Unknown 12/05/2024 11:48 AM EDT 12/05/2024 1:34 PM EDT Lucy Larkin MD LAB BLOOD ORDERABLES Final Resul t Performing Organization Address City/[facility]/ZIP Co de Phone Number [facility] [address] [place] [address] [phone] * HIV-1/2 Antigen and Antibodies, Fourth Generation, with Reflexes (12/05/2024 11:48 AM EDT) HIV AB/AG Nonreactive Nonreactive [facility] Comment:HIV-1 p24 Ag and/or HIV-1/HIV-2 Ab not detected.A test result that is nonreactive does not exclude thepossibility of exposure to or infection with HIV-1 and/orHIV-2. Nonreactive results in this assay for individualswith prior exposure to HIV-1 and/or HIV-2 may be due toantigen and antibody levels that are below the limit ofdetection of this assay.The [email or web address] HIV Ag/Ab Combo assay result andsupplemental assay results should be interpreted inconjunction with the patient's clinical presentation,history and other laboratory results. If the results areinconsistent with clinical evidence, additional testing issuggested to confirm the result. Venous blood specimen / Unknown 12/05/2024 11:48 AM EDT 12/05/2024 1:34 PM EDT Lucy Larkin MD LAB BLOOD ORDERABLES Final Resul t Performing Organization Address [facility] Co de Phone Number [facility] [address] [place] [address] [phone] * (ABNORMAL) Prothrombin Time-INR (12/05/2024 11:48 AM EDT) Prothrombin Time 13.2(H) 10.9 - 12.4 SEC [facility] INTERNATIONAL NORM RATIO 1.2(H) 0.9 - 1.1 [facility] Comment:INTERNATIONAL NORMAL IZED RATIO (INR) [...] 3.5 Blood Venous blood specimen / Unknown 12/05/2024 11:48 AM EDT 12/05/2024 1:34 PM EDT Jenny HELM LAB BLOOD ORDERABLES Final Resul t Performing Organization Address City/[facility]/ZIP Co de Phone Number [facility] [address] [place] [phone] * Ferritin (12/05/2024 11:48 AM EDT) Ferritin 27 10 - 122 ng/mL [facility] Blood Venous blood specimen / Unknown 12/05/2024 11:48 AM EDT 12/05/2024 1:34 PM EDT Lucy Larkin MD LAB BLOOD ORDERABLES Final Resul t Performing Organization Address [facility] Co de Phone Number [facility] [address] [place] [phone] * Comprehensive Metabolic Panel (12/05/2024 11:48 AM EDT) Sodium 141 135 - 145 mmol/L [facility] Potassium 3.6 3.3 - 5.1 mmol/L [facility] Chloride 108 96 - 108 mmol/L [facility] Carbon Dioxide 24 22 - 29 mmol/L [facility] Anion Gap 13 12 - 20 [facility] Urea Nitrogen (BUN) 10 9 - 16 mg/dL [facility] Creatinine, Serum 0.63 0.5 - 1.4 mg/dL [facility] Estimated Glomerular Filt Rate >60 [facility] Comment:Chronic Kidney Disea se: Estimated GFR < 60 mL/min/1.19d0Cfsewp Kidney Disease: Estimated GFR < 15 mL/min/1.73m2 Glucose 84 60 - 115 mg/dL [facility] Calcium 9.4 8.4 - 10.2 mg/dL [facility] Bilirubin, Total 0.4 0.0 - 1.0 mg/dL [facility] Aspartate Amino Transferase 22 5 - 31 U/L [facility] Alanine Aminotransferase 14 0 - 31 U/L [facility] Total Protein 7.3 6.5 - 8.0 g/dL [facility] Albumin Level 4.6 3.5 - 5.0 g/dL [facility] Alkaline Phosphatase 75 39 - 117 U/L [facility] Blood Venous blood specimen / Unknown 12/05/2024 11:48 AM EDT 12/05/2024 1:34 PM EDT us Lucy Larkin MD LAB BLOOD ORDERABLES Final Resul t [facility] [address] [place] [phone] * (ABNORMAL) Lipid Panel, Standard (12/16/2023 3:13 PM EDT) Triglycerides 51 <150 mg/dL [facility] Comment:Desirable Triglyceri de: less than 150 mg/dLBorderline High Triglyceride 150-199 mg/dLHigh Triglyceride: 200-499 mg/dLVery High Triglyceride: greater than or equal to 5OO mg/dL Cholesterol 186 <200 mg/dL [facility] Comment:Desirable Cholestero l: less than 200 mg/dLBorderline High Cholesterol: 200-239 mg/dLHigh Cholesterol: greater than 239 mg/dL LDL Cholesterol Calculated 113(H) <100 mg/dL [facility] Comment:Desirable LDL: less than 100 mg/dLNear Optimal/Above Optimal LDL: 110- 129 mg/dLBorderline High LDL: 130-159 mg/dLHigh LDL: 160-189 mg/dLVery High LDL: greater than or equal to 190 mg/dL HDL Cholesterol 63 >40 mg/dL [facility] Comment:Desirable HDL: great er than 40 mg/dL Note: This HDL assay may give artificially low results in patients with liver disease. 12/16/2023 3:13 PM EDT 12/16/2023 3:13 PM EDT us Generic External Data Provider LAB BLOOD ORDERAB LES Final Result [facility] [address] [place] [phone] * Pap Smear (07/31/2020) Pap smear Performed us Historical Provider HEALTH MAINTENANCE Final Result from Last 3 Months or Most Recently Relevant to Health Maintenance Insurance [facility] < 65 DENTAL - [facility] Care Teams Environmental Health Physician Relationship Specialty Start Date End Date Lucy Larkin MD [address] [place] [phone] PCP - General Family Medicine 11/17/13
--- OUTSIDE RECORDS SUMMARY | 2025-02-20 13:15 | XMS_ITS | Encounter Summary ---
Author Organization [employer] Address [address] [facility] [address] [place] [address] Care Team Providers Care Rotary Engraver Name Role Phone Lucy Larkin MD Primary Care Provider [phone] Encounter Details Date Type Department Care Team ([facility] st Contact Info) Description 03/02/2023 Abstract [facility] [address] [place] [address] Lucy Larkin MD [address] [place] [address] Social History Tobacco Use Types Packs/Day Years [...] on filedocumented in this encounter Care Teams Rotary Engraver Relationship Specialty Start Date End Date Lucy Larkin MD [address] [place], [place] [phone] PCP - General Family Medicine 11/17/13 documented as of this encounter
--- OUTSIDE RECORDS SUMMARY | 2025-02-20 13:15 | XMS_ITS | Encounter Summary ---
Author Organization [employer] Address [address] [facility] [address] [place] [address] Care Team Providers Care Student Development Coordinator Name Role Phone Lucy Larkin MD Primary Care Provider [phone] Reason for Visit * Reason Comments Med Refill Encounter Details Date Type Department Care Team ([facility] Contact Info) Description 11/16/2023 Refill [facility] [address] [place] [address] Tati Johnson MD [address] [place] [address] Social History Tobacco Use Types Packs/Day Years [...] documented as of this encounter Care Teams Student Development Coordinator Relationship Specialty Start Date End Date Lucy Larkin MD [address] [place] [phone] PCP - General Family Medicine 11/17/13 documented as of this encounter
--- OUTSIDE RECORDS SUMMARY | 2025-02-20 13:15 | XMS_ITS | Encounter Summary ---
Author Organization [employer] Address [address] [facility] [address] [place] [address] Care Team Providers Care Kier Boiler Name Role Phone Lucy Larkin MD Primary Care Provider [phone] Reason for Visit * Reason Onset Date Comments Pre-Op 08/17/2023 Encounter Details Date Type Department Care Team ([facility] st Contact Info) Description 08/17/2023 Telephone [facility] [address] [place], [place] [phone] Lucy Larkin MD [address] [place], [place] [phone] Pre-Op Social History Tobacco Use Types Packs/Day [...] t he electric, gas, oil or water [employer] threatened to shut off services in your [...] having the surgery below on 10/20/23 in [place] and needs a pre-op appointment prior. She will also need a mammogram prior to this surgery. Pre-op scheduled for 10/06/[address] Larkin for 2:30pm. TC placed to surgeon's officeto review and confirm information below. Long wait on hold and then transferred to for surgical scrub tech. LM that we are trying to confirm pre-op requirements for a shared patient and to please call us back. Routing message to PCP for review of request for mammogram and back to [place] Team Nurses to confirm pre-op details with surgeon's office. Date of Surgery: 10/19 Surgical procedure being done: breast lift Type of anesthesia: Local Lab needed: yes, CBC with differential, test, metabolic panel, PTT, mammogram EKG: yes Surgeon's name: Dr. Kendell Guerra Facility name: [facility] Surgeon's office number: [phone] Surgeon's office fax number: [phone] Contact name (person you spoke with): patient Last office note from surgeon requested: none * Telephone Encounter - Kayla Hinkle - 08/17/2023 2:30 PM EDT Date of Surgery: 10/19 Surgical procedure being done: breast lift Type of anesthesia: Local Lab needed: yes, CBC with differential, test, metabolic panel, PTT, mammogram EKG: yes Surgeon's name: Dr. Kendell Guerra Facility name: [facility] Surgeon's office number: [phone] Surgeon's office fax number: [phone] Contact name (person you spoke with): patient Last office note from surgeon requested: none documented in this encounter Plan of Treatment Not on file documented as of this encounter Visit Diagnoses Not on filedocumented in this encounter Care Teams Kier Boiler Relationship Specialty Start Date End Date Lucy Larkin MD [address] [place] [phone] PCP - General Family Medicine 11/17/13 documented as of this encounter
--- OUTSIDE RECORDS SUMMARY | 2025-02-20 13:15 | XMS_ITS | Encounter Summary ---
Author Organization [employer] Address [address] [facility] [place] [address] Care Team Providers Care Train Driver Name Role Phone Lucy Larkin MD Primary Care Provider [phone] Encounter Details Date Type Department Care Team ([facility] Contact Info) Description 08/14/2023 Orders Only [facility] [address] [place], [place] [phone] Tati Johnson MD [address] [place], [place] [phone] Social History Tobacco Use Types Packs/Day Years [...] on filedocumented in this encounter Care Teams Train Driver Relationship Specialty Start Date End Date Lucy Larkin MD [address] [place] [address] PCP - General Family Medicine 11/17/13 documented as of this encounter
--- OUTSIDE RECORDS SUMMARY | 2025-02-20 13:15 | XMS_ITS | Encounter Summary ---
Author Organization [employer] Address [address] [facility] [address] [place] [address] Care Team Providers Care Powerhouse Attendant Name Role Phone Lucy Larkin MD Primary Care Provider [phone] Reason for Visit * Reason Comments Med Refill Encounter Details Date Type Department Care Team ([facility] Contact Info) Description 01/18/2024 Refill [facility] [address] [place] [address] Tati Johnson MD [address] [place] [phone] Social History Tobacco Use Types Packs/Day Years [...] documented as of this encounter Care Teams Powerhouse Attendant Relationship Specialty Start Date End Date Lucy Larkin MD [address] [place] [phone] PCP - General Family Medicine 11/17/13 documented as of this encounter
== END 2025-02-20 10:56 | disposition home or self-care (01) ==
LOC: HO.HBS 10:45
PROVIDERS: PCP Family Medicine; Visit Provider Physician Assistant Surgical
DX: E66.3 Overweight (principal); Z68.28 Body mass index [BMI] 28.0-28.9, adult; Z90.3 Acquired absence of stomach [part of]; Z98.84 Bariatric surgery status
CPT/HCPCS: 99213; G2211